=== PATIENT | female | born 1945 | race Caucasian/White ===

== ENCOUNTER → 2019-04-25 13:52 | Outpatient (BNVA) | payer MEDICARE, SELFPAY | PROVIDERS: Family Provider Family Medicine; PCP Family Medicine; Visit Provider Nurse Practitioner | DX: F33.2 Major depressive disorder, recurrent severe without psychotic features (principal) | CPT/HCPCS: 99213 ==

== ENCOUNTER 2019-08-09 05:38 | Emergency (ER) | payer MEDICARE, SELFPAY ==
[2019-08-09 05:50] VITALS: BP 185/83; PULSE 84; RESP 20; TEMP 35.8; O2SAT 98; BMI 28.3
--- NOTE | 2019-08-09 06:03 | CT_ITS ---
WS: [id number] CT abdomen pelvis w con* [id number] REASON FOR EXAM: abd pain IV CONTRAST ADMINISTERED: Omnipaque 350 300, 95 mL TOTAL EXAM DLP: 810.[address] scans at [facility] use at least one of these dose optimization techniques: automat ed exposure control; mA and/or kV adjustment per patient size (includes targeted exams where dose is matched to clinical indication); or iterative reconstruction. FINDINGS: Dilated fluid-filled cavity is seen in the uterus measures 3.17 x 3.47 x 2.93 cm. The uteru s itself is small in size. There is no adnexal masses seen. The distal colon sigmoid colon appear to be normal. There is no masses seen anorectal area. The bony pelvis was normal. The upper abdomen shows normal lower lung angela and mediastinum. The liver was normal no infiltrating changes. The gallbladder showed no stones or wall thickening. The pancreas head, body, tail were normal. The spleen was normal including the splenic arteries The stomach was normal. The adrenal glands were both normal. Both kidneys show normal excretory patterns no hydronephrosis or stones. The ureters were both normal . At the hepatic flexure of the diverticulosis no diverticulitis. The transverse colon was normal. The descending colon was within normal limits. The small bowel patterns were normal. The appendix was not inflamed. CT/CT abdomen pelvis w con* [id number] IMPRESSION: Fluid-filled mass in the uterus differential includes endometrial carcinoma. Isolated diverticulosis of the hepatic flexure
--- NOTE | 2019-08-09 06:03 | XR_ITS ---
WS: [id number] XR chest 1V portable [id number] REASON FOR EXAM: dyspnea/cough FINDINGS: Scoliosis convex to the right with degenerated changes. The heart is not enlarged. The lung angela are clear there is no pneumonia, pleural effusion, pulmonary edema, or pneumothorax. The hilum is and apices are normal. XR/XR chest 1V portable [id number] IMPRESSION: Scoliotic curve with degenerate changes throughout the thoracic spine convex to the right Negative chest for acute pathology.
[2019-08-09 06:16] VITALS: BP 178/72; PULSE 72; RESP 18; O2SAT 97
[2019-08-09] MEDS: ondansetron 2 mg/ML SDV 2 mL 4 MG IVP (06:17)
[2019-08-09] MEDS: sodium chloride 0.9% 1,000 ML 999 ML IV (06:17)
[2019-08-09 06:18] VITALS: RESP 18; O2SAT 98
[2019-08-09] MEDS: morphine 4 mg/mL SDV 1 mL IVP (06:18)
[2019-08-09 06:25] LABS: Basophils % 0.3 %; Eosinophils # 0.1 10^3/uL (0.0-0.8); Eosinophils % 1.5 %; Hematocrit 44.2 % (37.0-47.0); Hemoglobin 14.4 g/dL (11.5-15.3); Lymphocytes # 1.5 10^3/uL (0.8-4.8); Lymphocytes % 22.4 %; Mean Corpuscular HGB Conc 32.6 g/dL (30.0-36.0); Mean Corpuscular Hemoglobin 28.7 pg (28.0-34.0); Mean Corpuscular Volume 88.2 fL (81-99); Mean Platelet Volume 10.4 fL (7.4-10.4); Monocytes # 0.5 10^3/uL (0.2-0.9); Monocytes % 7.5 %; Neutrophils # 4.6 10^3/uL (1.8-7.7); Neutrophils % 68.2 %; Nucleated Red Blood Cells % 0 %; Platelet Count 252 10^3/cmm (130-400); Red Blood Count 5.01 10^6/uL (4.1-5.3); Red Cell Distribution Width 12.2 % (12.1-15.1); White Blood Count 6.8 10^3/uL (4.0-10.0)
[2019-08-09 06:30] LABS: Ketone (Acetest) Serum Negative (Negative)
[2019-08-09 06:39] LABS: Alanine Aminotransferase 15 U/L (0-33); Albumin Level 4.3 g/dL (3.5-5.2); Alkaline Phosphatase 65 IU/L (35-105); Anion Gap 18.4 (5-19); Aspartate Amino Transferase 33 U/L (0-32); Blood Urea Nitrogen 9 mg/dL (8-23); Carbon Dioxide 24 mmol/L (22-29); Chloride 101 mmol/L (98-107); Creatine Phosphokinase 91 U/L (26-192); Creatinine Clr Calc Pharmacy 61.5723; Globulin 2.7 g/dL (1.3-4.6); Glucose 147 mg/dL (65-115); Lipase 25 U/L (13-60); Osmolality Calculated 289 mOsm/kg (285-295); Potassium 3.4 mmol/L (3.5-5.1); Sodium 140 mmol/L (136-145); Total Bilirubin 0.6 mg/dL (0.15-1.2)
--- NOTE | 2019-08-09 06:45 | W.ED.ABDPA2 ---
HPI - Abdominal Pain General: Chief Complaint: Abdominal Pain Stated Complaint: NAUSEA; WEAKNESS; ALL OVER PAIN Time Seen by Provider: 08/09/19 05:48 History of Present Illness: HPI narrative: 73 yo female presents with abdominal pain states she began a couple weeks ago she had an ultrasound done at a local clinic a week ago that was evaluating her gallbladder that was normal she seemed to improve after that for about a week and the last 2 to 3 days had significant worsening of symptoms again. She states the pain migrated from the right upper quadrant to the abdomen. She has had nausea no vomiting or diarrhea with it. She has had a bit of a chronic cough that is nonproductive and is her baseline. She denies any dysuria urgency or frequency no history of significant difficulty with bowel or bladder no hematochezia melena hematemesis or coffee-ground emesis she does not associate any dysuria urgency frequency or hematuria with this episodes as either. MD elicited complaint: abdominal pain Pertinent past history: none Onset (ago): week(s) Pain Consistency: intermittent Location: Epigastric and RUQ Severity: severe Quality: cramping Migration to: epigastric Exacerbating factors: eating Relieving factors: rest Associated Symptoms: Reports anorexia, bloating, dyspepsia and excessive flatus; Denies change in stool character, chills, coffee ground emesis, fever(s), hematochezia, hematuria, hematemesis, fecal incontinence and poor appetite Review of Systems Const: Denies: fever(s), chills, body aches, change in appetite, fatigue or malaise ENMT: Denies: throat pain, ear or mastoid pain, nasal discharge or nasal congestion Card: Denies: chest pain, edema, dyspnea on exertion or orthopnea Resp: Denies: dyspnea, productive cough or non-productive cough GI: Reports: bloating and excessive flatus; Denies: hematemesis, coffee ground emesis, fecal incontinence, change in stool character or hematochezia : Denies: hematuria Skin/Breast: Denies: rash or pruritus PFS ED PFSH: Medical History (Updated 08/09/19 @ 08:45 by Marcos Castillo DO) Hypertension Surgical History (Updated 08/09/19 @ 07:46 by Marcos Castillo DO) History of mandibular surgery S/P tonsillectomy and adenoidectomy Social History Smoking and tobacco status: never smoked Physical Exam Const: COMMON NORMALS: no acute distress GENERAL APPEARANCE: cooperative and comfortable ORIENTATION/CONSCIOUSNESS: Yes awake, Yes oriented to person, Yes oriented to place and Yes oriented to time HENMT: COMMON NORMALS: normocephalic, atraumatic, hearing grossly normal bilaterally, external ears normal, EAC's normal, TM's normal bilaterally, Normal nasal mucous membranes and turbinates present, moist oral mucous membranes and oropharynx normal HEAD & SCALP: normocephalic and atraumatic NOSE: Normal nasal mucous membranes and turbinates present EXTERNAL EAR: Yes external ears normal EXTERNAL AUDITORY CANAL: EAC's normal TYMPANIC MEMBRANE: TM's normal bilaterally Eye: COMMON NORMALS: Equal, round and reactive pupils present, EOMs intact bilaterally, conjunctivae normal and no scleral icterus CONJUNCTIVA: Yes conjunctivae normal PUPIL: Yes Equal, round and reactive pupils present Neck/C-Spine: COMMON NORMALS: full ROM, no lymphadenopathy, supple and no JVD Lymph: LYMPHATIC: no lymphadenopathy noted and no lymphedema noted Resp: COMMON NORMALS: normal respiratory effort, No retractions, No use of accessory muscles and clear to auscultation bilaterally AUSCULTATION: clear to auscultation bilaterally Cardio: COMMON NORMALS: no JVD, regular rate, regular rhythm and No murmurs present (Cardio) RATE: regular rate RHYTHM: regular rhythm GI: COMMON NORMALS: Soft to palpation and No hepatosplenomegaly present AUSCULTATION: Yes normoactive bowel sounds PALPATION: Yes Soft to palpation, No Tenderness to palpation present (GI), No Guarding due to palpation present (GI) and Yes No hepatosplenomegaly present Extremity: COMMON NORMALS: normal to inspection, capillary refill normal, no clubbing, cyanosis or edema, no calf tenderness and no pedal edema Neuro: SENSORIUM/ORIENTATION: Yes oriented to person, Yes oriented to place and Yes oriented to time Skin: COMMON NORMALS: no rashes or lesions noted GENERAL SKIN EXAM: no rashes or lesions noted Course Vital Signs: Vital signs: Vital Signs Temperature 96.4 F L 08/09/19 05:50 Pulse Rate 70 08/09/19 09:05 Respiratory Rate 16 08/09/19 09:05 Blood Pressure 145/70 08/09/19 09:05 Pulse Oximetry 98 08/09/19 09:05 MDM - Abdominal Pain MDM Narrative: Medical decision making narrative: Patient has reflux addition to that she has a uterine mass. She had good relief with a GI cocktail. Will start on a PPI for hydrocodone Zofran for the abdominal pain she needs further work-up for the mass on the uterus we will set her up with Dr. Hopkins she expressed understanding and after we discussed it. Lab Data: Labs: Lab Results 08/09/19 08/09/19 08/09/19 Range/Units 05:59 05:59 05:59 WBC 6.8 (4.0-10.0) 10^3/ uL RBC 5.01 (4.1-5.3) 10^6/u L Hgb 14.4 (11.5-15.3) g/dL Hct 44.2 (37.0-47.0) % MCV 88.2 (81-99) fL MCH 28.7 (28.0-34.0) pg MCHC 32.6 (30.0-36.0) g/dL RDW 12.2 (12.1-15.1) % Plt Count 252 (130-400) 10^3/c mm MPV 10.4 (7.4-10.4) fL Neut % (Auto) 68.2 % Lymph % (Auto) 22.4 % [place] % (Auto) 7.5 % Eos % (Auto) 1.5 % Baso % (Auto) 0.3 % Neut # (Auto) 4.6 (1.8-7.7) 10^3/u L Lymph # (Auto) 1.5 (0.8-4.8) 10^3/u L [place] # (Auto) 0.5 (0.2-0.9) 10^3/u L Eos # (Auto) 0.1 (0.0-0.8) 10^3/u L Baso # (Auto) 0.0 (0.0-0.1) 10^3/u L Nucleated RBC % (a uto) 0 % Nucleated RBCs # 0.0 /100WBC Sodium 140 (136-145) mmol/L Potassium 3.4 L (3.5-5.1) mmol/L Chloride 101 (98-107) mmol/L Carbon Dioxide 24 (22-29) mmol/L Anion Gap 18.4 (5-19) BUN 9 (8-23) mg/dL Creatinine 0.7 (0.5-0.9) mg/dL Glucose 147 H (65-115) mg/dL Calculated Osmolal ity 289 (285-295) mOsm/k g Lactate (0.5-2.2) mmol/L Calcium 10.0 (8.5-10.5) mg/dL Total Bilirubin 0.6 (0.15-1.2) mg/dL AST 33 H (0-32) U/L ALT 15 (0-33) U/L Alkaline Phosphata se 65 (35-105) IU/L Creatine Kinase 91 (26-192) U/L Total Protein 7.0 (6.6-8.7) g/dL Albumin 4.3 (3.5-5.2) g/dL Globulin 2.7 (1.3-4.6) g/dL Lipase 25 (13-60) U/L Urine Color (Yellow) Urine Appearance (CLEAR) Urine pH (5-7) Ur Specific Gravit y (1.005-1.030) Urine Protein (Negative) Urine Glucose (UA) (Normal) Urine Ketones (Negative) Urine Blood (Negative) Urine Nitrate (Negative) Urine Bilirubin (NEGATIVE) Urine Urobilinogen (Negative) mg/dL Ur Leukocyte Charley ase (Negative) Urine RBC (0-2) /hpf Urine WBC (0-5) /hpf Ur Squamous Epith Cells (0-5) Urine Bacteria (NONE) Serum Ketones Negative (Negative) 08/09/19 08/09/19 Range/Units 06:39 06:40 WBC (4.0-10.0) 10^3/ uL RBC (4.1-5.3) 10^6/u L Hgb (11.5-15.3) g/dL Hct (37.0-47.0) % MCV (81-99) fL MCH (28.0-34.0) pg MCHC (30.0-36.0) g/dL RDW (12.1-15.1) % Plt Count (130-400) 10^3/c mm MPV (7.4-10.4) fL Neut % (Auto) % Lymph % (Auto) % [place] % (Auto) % Eos % (Auto) % Baso % (Auto) % Neut # (Auto) (1.8-7.7) 10^3/u L Lymph # (Auto) (0.8-4.8) 10^3/u L [place] # (Auto) (0.2-0.9) 10^3/u L Eos # (Auto) (0.0-0.8) 10^3/u L Baso # (Auto) (0.0-0.1) 10^3/u L Nucleated RBC % (a uto) % Nucleated RBCs # /100WBC Sodium (136-145) mmol/L Potassium (3.5-5.1) mmol/L Chloride (98-107) mmol/L Carbon Dioxide (22-29) mmol/L Anion Gap (5-19) BUN (8-23) mg/dL Creatinine (0.5-0.9) mg/dL Glucose (65-115) mg/dL Calculated Osmolal ity (285-295) mOsm/k g Lactate 1.9 (0.5-2.2) mmol/L Calcium (8.5-10.5) mg/dL Total Bilirubin (0.15-1.2) mg/dL AST (0-32) U/L ALT (0-33) U/L Alkaline Phosphata se (35-105) IU/L Creatine Kinase (26-192) U/L Total Protein (6.6-8.7) g/dL Albumin (3.5-5.2) g/dL Globulin (1.3-4.6) g/dL Lipase (13-60) U/L Urine Color Yellow (Yellow) Urine Appearance Clear (CLEAR) Urine pH 5 (5-7) Ur Specific Gravit y 1.015 (1.005-1.030) Urine Protein Neg (Negative) Urine Glucose (UA) Norm (Normal) Urine Ketones Negative (Negative) Urine Blood 2+ H (Negative) Urine Nitrate Negative (Negative) Urine Bilirubin Neg (NEGATIVE) Urine Urobilinogen Norm (Negative) mg/dL Ur Leukocyte Charley ase Trace H (Negative) Urine RBC None (0-2) /hpf Urine WBC 0-4 H (0-5) /hpf Ur Squamous Epith Cells 0-4 H (0-5) Urine Bacteria Trace (NONE) Serum Ketones (Negative) Discharge Plan Discharge Patient Disposition: Home, Self-Care Clinical Impression: Chronic GERD, Hypertension, Mass of uterus Condition: Stable Prescriptions: New hydrocodone-acetaminophen 5-325 mg tablet 1 tab PO Q6H PRN (Reason: pain) Qty: 20 RF: 0 Zofran 4 mg tablet 4 mg PO Q6H PRN (Reason: nausea and vomiting) Qty: 20 RF: 0 Protonix 40 mg tablet,delayed release (DR/EC) 40 mg PO QAM Qty: 30 RF: 0 No Action bisoprolol-hydrochlorothiazide 10-6.25 mg tablet 1 tab PO DAILY RF: 0 cetirizine [Zyrtec] 10 mg tablet 10 mg PO DAILY RF: 0 naproxen 375 mg tablet 375 mg PO BID PRNRF: 0 fluoxetine [Prozac] 20 mg capsule 20 mg PO DAILY Qty: 90 RF: 1 diazepam [Valium] 2 mg tablet 2 mg PO DAILY Qty: 30 RF: 5 ciprofloxacin HCl [Cipro] 500 mg tablet 500 mg PO BID Qty: 28 RF: 3 Discharge Orders: Discharge Order (Routine); Ordered 08/09/19 Ordered By: Marcos Castillo Referrals: Duncan Gonsalves MD [Primary Care Provider] - Discharge Diet: Advance as tolerated Discharge Activity: Increase activity as tolerated Activity Restrictions/Additional Instructions: This management will call for an appointment with a real estate paralegal. Discharge Date/Time: 08/09/19 09:06 Coding Level of Care Code ED Retail Experience Specialist for Chg Fwd Exam Comprehensive
[2019-08-09 06:49] LABS: Add Urine Microscopic? YES; Bilirubin Urine Neg (NEGATIVE); Blood Urine 2+ (Negative); Glucose Urine UA Norm (Normal); Ketones Urine Negative (Negative); Leukocyte Esterase Urine Trace (Negative); Nitrate Urine Negative (Negative); Protein Urine Neg (Negative); Specific Gravity, Urine 1.015 (1.005-1.030); Urine Appearance Clear (CLEAR); Urine Color Yellow (Yellow); Urobilinogen Urine Norm (Negative); pH Urine 5 (5-7)
[2019-08-09 06:54] LABS: Add Urine Culture? No; Bacteria Urine TRACE; Squamous Epithelial Cell Urine 0-4 (0-5); WBC Urine 0-4 /hpf (0-5)
[2019-08-09] MEDS: lidocaine 2% viscous 15 ML, aluminum-mag hydrox-simethicon 30 ML, sucralfate oral liq 1 GM PO (06:56)
[2019-08-09 07:00] LABS: Lactate (Lactic Acid level) 1.9 mmol/L (0.5-2.2)
[2019-08-09] MEDS: iohexol 300 mg/mL 100 mL Btl IV (07:47)
[2019-08-09 09:05] VITALS: BP 145/70; PULSE 70; RESP 16; O2SAT 98
--- NOTE | 2019-08-10 10:42 | DCPLANNER ---
production service manager had message to schedule a follow up appointment for patient with [facility]. production service manager called the clinic, spoke with Jaqueline, gave clinic patients information. production service manager was told that patients information would be printed and reviewed. Clinic will call field nurse case manager and patient with appointment information.
--- NOTE | 2019-08-11 08:33 | DCPLANNER ---
Patient has a follow up appointment scheduled for Thursday, August 31, 2019 at 3:[address] Barragan. Clinic will call patient with appointment information.
--- NOTE | 2019-09-02 14:48 | DCPLANNER ---
Patient did attend appointment scheduled for 08.31.19 with [facility].
== END 2019-08-09 09:06 | disposition home or self-care (01) ==
PROVIDERS: Emergency Provider Family Medicine; PCP Family Medicine
DX: K21.9 Gastro-esophageal reflux disease without esophagitis (principal); I10 Essential (primary) hypertension; N85.9 Noninflammatory disorder of uterus, unspecified
CPT/HCPCS: 12345; 36415; 71045; 74177; 80053; 81001; 82009; 82550; 83605; 83690; 85025; 87040; 96360; 96361; 96374; 96375; 99283; 99284; J2270; J2405; J7030; Q9967

== ENCOUNTER → 2019-09-14 13:02 | Outpatient (BNVA) | payer MEDICARE, SELFPAY | PROVIDERS: PCP Family Medicine; Visit Provider Obstetrics & Gynecology | DX: N85.9 Noninflammatory disorder of uterus, unspecified (principal) | CPT/HCPCS: 76830 ==

== ENCOUNTER → 2019-10-25 10:43 | Outpatient (BNVA) | payer MEDICARE, SELFPAY | PROVIDERS: PCP Family Medicine; Visit Provider Nurse Practitioner | DX: F33.0 Major depressive disorder, recurrent, mild (principal) | CPT/HCPCS: 99213 ==

== ENCOUNTER 2020-01-31 09:45 | Outpatient (CLI) | payer MEDICARE, SELFPAY ==
--- NOTE | 2020-01-31 09:59 | NM_ITS ---
WS: [id number] NUCLEAR MEDICINE HIDA SCAN WITH GALLBLADDER EJECTION FRACTION HISTORY: EPIGASTRIC PAIN COMPARISON: Gallbladder ultrasound 07/26/2019 TECHNIQUE: The patient was intravenously injected with 7.7 mCi of TC99m Mebrofenin. Immediate imaging over the right upper quadrant was followed by 5 minute image and additional images for a total of 60 minutes. Normal uptake of radiotracer throughout the liver. Activity identified in the gallbladder at 40 minutes and well distended by 60 minutes. Activity in the proximal small bowel was seen by 10 minutes. Good washout of the radiotracer from the liver by 60 minutes. The patient then drank 8 ounces of Ensure Plus. Ejection fraction at 60 minutes was 82%. Normal GB ej ection fraction is 35-75%. Post fatty meal symptoms: None. NM/NM hepatobiliary w phar* [id number] IMPRESSION: 1. Normal HIDA scan. 2. Normal gallbladder ejection fraction.
== END 2020-01-31 09:46 | disposition home or self-care (01) ==
PROVIDERS: PCP Family Medicine; Visit Provider Nurse Practitioner Family
DX: R10.13 Epigastric pain (principal)
CPT/HCPCS: 78227; A9537

== ENCOUNTER → 2020-04-17 08:02 | Outpatient (BNVA) | payer MEDICARE, SELFPAY | PROVIDERS: PCP Family Medicine; Visit Provider Nurse Practitioner | DX: F33.0 Major depressive disorder, recurrent, mild (principal) | CPT/HCPCS: 99214 ==

== ENCOUNTER → 2020-05-14 12:46 | Outpatient (BNVA) | payer MEDICARE, SELFPAY | PROVIDERS: PCP Family Medicine; Visit Provider Nurse Practitioner Family | DX: Z20.822 Contact with and (suspected) exposure to COVID-19 (principal) | CPT/HCPCS: 87635 ==

== ENCOUNTER → 2020-08-09 15:36 | Outpatient (BNVA) | payer MEDICARE, SELFPAY | PROVIDERS: PCP Family Medicine; Visit Provider Podiatrist Foot & Ankle Surgery | DX: M79.672 Pain in left foot (principal); M21.41 Flat foot [pes planus] (acquired), right foot; M21.42 Flat foot [pes planus] (acquired), left foot | CPT/HCPCS: 73630 ==

== ENCOUNTER 2020-09-13 16:17 | Outpatient (CLI) | payer MEDICARE, SELFPAY | END 2020-09-13 16:18 | disposition home or self-care (01) | LOC: SPT 16:18 | PROVIDERS: PCP Family Medicine; Visit Provider Podiatrist Foot & Ankle Surgery | DX: Z46.89 Encounter for fitting and adjustment of other specified devices (principal); M21.41 Flat foot [pes planus] (acquired), right foot; M21.42 Flat foot [pes planus] (acquired), left foot | CPT/HCPCS: L3030 ==

== ENCOUNTER → 2020-11-09 07:29 | Outpatient (BNVA) | payer MEDICARE, SELFPAY | PROVIDERS: PCP Family Medicine; Visit Provider Nurse Practitioner | DX: F33.0 Major depressive disorder, recurrent, mild (principal) | CPT/HCPCS: 99214 ==

== ENCOUNTER 2021-01-31 15:12 | Outpatient (CLI) | payer MEDICARE, SELFPAY ==
--- NOTE | 2021-01-31 15:18 | XR_ITS ---
WS: [id number] SCREENING DEXA SCAN [employer] CLINICAL INFORMATION: POST MENOPAUSAL COMPARISON: None. FINDINGS: The L1-L4 bone mineral density measures 1.259 g/cm2. This corresponds to a T score score of 0.7 and Z score of 2.3. Left femoral neck bone mineral density measures 0.953 g/cm2. This corresponds to a T score of -0.4 an d Z score of 1.1. Right femoral neck bone mineral density measures 0.903 g/cm2. This corresponds to a T score -0.8of an d Z score of 0.7. Mean femoral neck bone mineral density measures 0.928 g/cm2. This corresponds to a T score of -0.6 an d Z score of 0.9. XR/XR DEXA axial skeleton* [id number] IMPRESSION: Normal bone mineralization. Patient's FRAX calculated 10 year probability for major osteoporotic fracture i s 16.7 % and osteoporotic hip fracture is 2.8%.
== END 2021-01-31 15:13 | disposition home or self-care (01) ==
PROVIDERS: PCP Family Medicine; Visit Provider Family Medicine
DX: Z78.0 Asymptomatic menopausal state (principal)
CPT/HCPCS: 77080

== ENCOUNTER → 2021-02-21 13:46 | Outpatient (BNVA) | payer MEDICARE, SELFPAY | PROVIDERS: PCP Family Medicine; Visit Provider Nurse Practitioner Family | DX: Z20.822 Contact with and (suspected) exposure to COVID-19 (principal) | CPT/HCPCS: 87635 ==

== ENCOUNTER → 2021-05-03 07:31 | Outpatient (BNVA) | payer MEDICARE, SELFPAY | PROVIDERS: PCP Family Medicine; Visit Provider Nurse Practitioner | DX: F33.0 Major depressive disorder, recurrent, mild (principal) | CPT/HCPCS: 99214 ==

== ENCOUNTER 2021-07-25 07:46 | Emergency (ER) | payer MEDICARE, SELFPAY ==
[2021-07-25 07:52] VITALS: BP 111/69; PULSE 66; RESP 16; TEMP 36.6; O2SAT 98; BMI 26.4
--- NOTE | 2021-07-25 07:54 | ECG_ITS ---
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 Measurements Intervals [place] Rate: 56 P: 22 OK: 169 QRS: 1 QRSD: 85 T: -5 QT: 413 QTc: 399 Interpretive Statements SINUS BRADYCARDIA NONSPECIFIC ST & T-WAVE ABNORMALITY No previous ECG available for comparison Electronically Signed On 07-25-2021 9:34:10 CDT by Deon Whiting M.D. [id number]
--- NOTE | 2021-07-25 08:16 | XRR_ITS ---
PROCEDURE INFORMATION: Exam: XR Chest Exam date and time: 07/25/2021 8:25 AM Age: 75 years old Clinical indication: Cough and dyspnea; Patient HX: Unable to sleep, cp, right side pain; Additional info: Dyspnea/cough TECHNIQUE: Imaging protocol: XR of the chest. Views: 1 view. COMPARISON: CR XR chest 1V portable [id number] 08/09/2019 6:23 AM FINDINGS: Lungs: Unremarkable. No consolidation. Pleural spaces: Unremarkable. No pleural effusion. No pneumothorax. Heart/Mediastinum: Unremarkable. No cardiomegaly. Bones/joints: There is mild thoracic scoliosis convex to the right. XR/XR chest 1V portable [id number] IMPRESSION: No acute abnormality.
--- NOTE | 2021-07-25 08:21 | ED_ITS ---
HPI - Chest Pain General: Chief Complaint: Chest Pain Stated Complaint: unable to sleep, cp, right side pain Time Seen by Provider: 07/25/21 07:50 Source: patient Mode of arrival: ambulatory Limitations: no limitations History of Present Illness: 75-year-old female presents emergency room with complaint of intermittent hot flashes and chest discomfort. In discussing with her this is actually been going on for 2 years. She has seen her primary care physician for it. She states she wakes up with hot flashes and sweats primarily at night it extends across her arms. She has occasionally noticed some flashes of discomfort across her chest but it does not persist, she will briefly have a sensation that she cannot take a deep breath will resolve spontaneously. She states usually immediately after these episodes that she will be very fatigued for period of time. She has not noted that it has been brought on by exertion or relieved by rest these flat at night flashes only occur at night while at rest. She previously did have a stress test sometime in the past she cannot member how long ago was told it was normal. She is not diabetic she does not smoke. She does feel like the symptoms have increased within the last 4 days. MD complaint: chest discomfort Onset (ago): year(s) (2) Timing of current episode: episodic Prior episodes: Yes Onset: during rest Pain location: other (Upper chest across the shoulders) Pain radiation: right arm and left arm Severity: mild Quality: heaviness and dull Relieving factors: nothing Exacerbating factors: nothing Associated symptoms: Reports diaphoresis; Deny abdominal pain, dyspnea, fever(s), leg edema, nausea, palpitations, sense of impending doom, syncope or vomiting Review of Systems Const: Reports: fatigue, malaise and diaphoresis; Denies: fever(s), chills or body aches ENMT: Denies: throat pain, ear or mastoid pain, nasal discharge or nasal congestion Card: Reports: chest pain; Denies: palpitations or syncope Resp: Denies: dyspnea GI: Denies: abdominal pain, nausea or vomiting : Denies: flank pain, difficulty voiding, dysuria, urinary frequency or urinary urgency Skin/Breast: Denies: rash or pruritus PFS ED PFSH: Medical History Depression Diverticulosis Gastroesophageal reflux disease Hyperlipemia Hypertension Major depressive disorder, recurrent, mild Psychiatric care Recurrent urinary tract infection Uterine fibroid Surgical History History of colonoscopy 2004 History of dilation and curettage History of esophagogastroduodenoscopy (EGD) 2004 History of mandibular surgery TMJ surgery S/P tonsillectomy and adenoidectomy Family History Grandfather Colon cancer maternal Mother , Age 62 from brain cancer. Hypercholesteremia Hypertension Father , Age 39 due to blood clot after heart valve replacement No problems noted. Social History Smoking and tobacco status: never smoked Alcohol intake: current Alcohol intake frequency: holidays/special occasions only Physical Exam Const: GENERAL APPEARANCE: cooperative and comfortable ORIENTATION/CONSCIOUSNESS: Yes awake, Yes oriented to person, Yes oriented to place and Yes oriented to time HENMT: COMMON NORMALS: normocephalic, atraumatic and hearing grossly normal bilaterally HEAD & SCALP: normocephalic and atraumatic Neck/C-Spine: COMMON NORMALS: no JVD Resp: COMMON NORMALS: normal respiratory effort, No retractions, No use of accessory muscles and clear to auscultation bilaterally AUSCULTATION: clear to auscultation bilaterally Cardio: COMMON NORMALS: no JVD, regular rate, regular rhythm and No murmurs present (Cardio) RATE: regular rate RHYTHM: regular rhythm GI: COMMON NORMALS: Soft to palpation and No hepatosplenomegaly present AUSCULTATION: Yes normoactive bowel sounds PALPATION: Yes Soft to palpation, No Tenderness to palpation present (GI), No Guarding due to palpation present (G I) and Yes No hepatosplenomegaly present Extremity: COMMON NORMALS: normal to inspection, capillary refill normal, no clubbing, cyanosis or edema, no calf tenderness and no pedal edema Neuro: SENSORIUM/ORIENTATION: Yes oriented to person, Yes oriented to place and Yes oriented to time Skin: COMMON NORMALS: no rashes or lesions noted GENERAL SKIN EXAM: no rashes or lesions noted Course Vital Signs: Vital signs: Vital Signs Temperature 98 F 07/25/21 07:52 Pulse Rate 68 07/25/21 10:31 Respiratory Rate 16 07/25/21 10:31 Blood Pressure 130/83 07/25/21 10:31 Pulse Oximetry 98 07/25/21 10:31 MDM - Chest Pain Medical Decision Making Labs imaging and EKG reviewed no acute findings noted patient has had this for some time. Patient would like to be discharged home. We will go and discharge her home and like to have her take baby aspirin daily. If she has any recurrence of symptoms return to the emergency room. We will set her up for outpatient Lexiscan sestamibi stress testing. Lab Data : 07/25/21 08:20 07/25/21 08:20 Radiology Impressions Chest X-Ray 07/25/21 08:16 IMPRESSION: No acute abnormality. Laboratory Results WBC 6.5 10^3/uL (4.0-10.0) 07/25/21 08:20 RBC 4.70 10^6/uL (4.1-5.3) 07/25/21 08:20 Hgb 13.6 g/dL (11.5-15.3) 07/25/21 08:20 Hct 40.7 % (37.0-47.0) 07/25/21 08:20 MCV 86.6 fl (81-99) 07/25/21 08:20 MCH 28.9 pg (28.0-34.0) 07/25/21 08:20 MCHC 33.4 g/dL (30.0-36.0) 07/25/21 08:20 RDW 12.6 % (12.1-15.1) 07/25/21 08:20 Plt Count 224 10^3/cmm (130-400) 07/25/21 08:20 MPV 10.0 fL (7.4-10.4) 07/25/21 08:20 Neut % (Auto) 68.6 % 07/25/21 08:20 Lymph % (Auto) 21.5 % 07/25/21 08:20 [place] % (Auto) 7.2 % 07/25/21 08:20 Eos % (Auto) 2.0 % 07/25/21 08:20 Baso % (Auto) 0.5 % 07/25/21 08:20 Neut # (Auto) 4.46 10^3/uL (1.8-7.7) 07/25/21 08:20 Lymph # (Auto) 1.4 10^3/uL (0.8-4.8) 07/25/21 08:20 [place] # (Auto) 0.5 10^3/uL (0.2-0.9) 07/25/21 08:20 Eos # (Auto) 0.1 10^3/uL (0.0-0.8) 07/25/21 08:20 Baso # (Auto) 0.0 10^3/uL (0.0-0.1) 07/25/21 08:20 Nucleated RBC % (auto) 0 % 07/25/21 08:20 Nucleated RBCs # 0.0 /100WBC 07/25/21 08:20 Sodium 140 mmol/L (136-145) 07/25/21 08:20 Potassium 3.8 mmol/L (3.5-5.1) 07/25/21 08:20 Chloride 104 mmol/L (98-107) 07/25/21 08:20 Carbon Dioxide 25 mmol/L (22-29) 07/25/21 08:20 Anion Gap 14.8 (5-19) 07/25/21 08:20 BUN 14 mg/dL (8-23) 07/25/21 08:20 Creatinine 0.8 mg/dL (0.5-0.9) 07/25/21 08:20 GFR Calculation Not Reportable 07/25/21 08:20 Glucose 113 mg/dL (65-115) 07/25/21 08:20 Calculated Osmolality 291 mOsm/kg (285-295) 07/25/21 08:20 Calcium 9.8 mg/dL (8.5-10.5) 07/25/21 08:20 Total Bilirubin 0.4 mg/dL (0.15-1.2) 07/25/21 08:20 AST 30 U/L (0-32) 07/25/21 08:20 ALT 22 U/L (0-33) 07/25/21 08:20 Alkaline Phosphatase 66 IU/L (35-105) 07/25/21 08:20 Troponin T Gen 5 ng/L 6 ng/L (0-10) 07/25/21 08:20 Total Protein 7.1 g/dL (6.6-8.7) 07/25/21 08:20 Albumin 4.2 g/dL (3.5-5.2) 07/25/21 08:20 Globulin 2.9 g/dL (1.3-4.6) 07/25/21 08:20 Urine Color Yellow (Yellow) 07/25/21 09:40 Urine Appearance Clear (CLEAR) 07/25/21 09:40 Urine pH 5 (5-7) 07/25/21 09:40 Ur Specific [place] 1.020 (1.005-1.030) 07/25/21 09:40 Urine Protein Neg (Negative) 07/25/21 09:40 Urine Glucose (UA) Norm (Normal) 07/25/21 09:40 Urine Ketones Negative (Negative) 07/25/21 09:40 Urine Blood Neg (Negative) 07/25/21 09:40 Urine Nitrate Negative (Negative) 07/25/21 09:40 Urine Bilirubin Neg (Negative) 07/25/21 09:40 Urine Urobilinogen Norm mg/dL (Negative) 07/25/21 09:40 Ur Leukocyte Esterase Negative (Negative) 07/25/21 09:40 Discharge Plan Discharge Patient Disposition: Home Clinical Impression: Atypical chest pain Condition: Stable Prescriptions: New aspirin 81 mg tablet,delayed release (DR/EC) 81 mg PO DAILY Qty: 30 0RF No Action (DME) Custom Molded Orthotics See Rx Instructions .Route .MEDSUPPLY Qty: 1 0RF Rx Instructions: As directed naproxen 375 mg tablet 375 mg PO BID PRN (Reason: Pain) 0RF ondansetron HCl 4 mg tablet 4 mg PO TID PRN (Reason: Nausea And Vomiting) 0RF bisoprolol-hydrochlorothiazide 5-6.25 mg tablet 1 tab PO QAM 0RF Gracie Allergy 180 mg Tablet 180 mg PO DAILY 0RF Tylenol Ex Str Rapid Release 500 mg Tablet 500 mg PO Q6H PRN (Reason: Pain) 0RF Nitrostat 0.4 mg Tablet, Sublingual 0.4 mg SUBLINGUAL Q5M PRN (Reason: Chest Pain) 0RF Rx Instructions: do not exceed 3 doses per episode azelastine 137 mcg (0.1 %) aerosol,spray 2 spray INTRANASAL BEDTIME 0RF albuterol sulfate 90 mcg/actuation HFA aerosol inhaler 2 puff INHALATION Q4H PRN (Reason: Shortness Of Breath) 0RF Vitamin D3 50 mcg (2,000 unit) Capsule 50 mcg PO .TWICE A WEEK 0RF Valium 2 mg tablet 2 mg PO BEDTIME 0RF Prozac 20 mg capsule 20 mg PO DAILY@18 0RF Discharge Orders: Discharge ED (Routine); Ordered 07/25/21 Ordered By: Marcos Castillo Referrals: Duncan Gonsalves MD [Primary Care Provider] - Discharge Diet: Usual diet Discharge Activity: Resume usual activity Patient Instructions: Opioid Safety Activity Restrictions/Additional Instructions: Case management make arrangements for you to have an outpatient Lexiscan sestamibi stress test. Coding Level of Care Code ED [employer] Super[employer] for Alberto Fwd Exam Comprehensive
[2021-07-25 08:28] LABS: Basophils % 0.5 %; Eosinophils # 0.1 10^3/uL (0.0-0.8); Hematocrit 40.7 % (37.0-47.0); Hemoglobin 13.6 g/dL (11.5-15.3); Lymphocytes # 1.4 10^3/uL (0.8-4.8); Lymphocytes % 21.5 %; Mean Corpuscular HGB Conc 33.4 g/dL (30.0-36.0); Mean Corpuscular Hemoglobin 28.9 pg (28.0-34.0); Mean Corpuscular Volume 86.6 fl (81-99); Monocytes # 0.5 10^3/uL (0.2-0.9); Monocytes % 7.2 %; Neutrophils # 4.46 10^3/uL (1.8-7.7); Neutrophils % 68.6 %; Nucleated Red Blood Cells % 0 %; Platelet Count 224 10^3/cmm (130-400); Red Cell Distribution Width 12.6 % (12.1-15.1); White Blood Count 6.5 10^3/uL (4.0-10.0)
[2021-07-25 08:50] LABS: Alanine Aminotransferase 22 U/L (0-33); Albumin Level 4.2 g/dL (3.5-5.2); Alkaline Phosphatase 66 IU/L (35-105); Anion Gap 14.8 (5-19); Aspartate Amino Transferase 30 U/L (0-32); Blood Urea Nitrogen 14 mg/dL (8-23); Calcium 9.8 mg/dL (8.5-10.5); Carbon Dioxide 25 mmol/L (22-29); Chloride 104 mmol/L (98-107); Globulin 2.9 g/dL (1.3-4.6); Glucose 113 mg/dL (65-115); Osmolality Calculated 291 mOsm/kg (285-295); Potassium 3.8 mmol/L (3.5-5.1); Sodium 140 mmol/L (136-145); Total Bilirubin 0.4 mg/dL (0.15-1.2); Total Protein 7.1 g/dL (6.6-8.7)
--- NOTE | 2021-07-25 09:13 | PC.PHAR ---
pt states she takes care of her own medications-pt states she is no longer taking montelukast 10mg daily ext med history shows last filled 07/18/21 90d/s
[2021-07-25 09:50] LABS: Troponin T (5th) Once 6 ng/L (0-10)
[2021-07-25 09:57] LABS: Add Urine Microscopic? NO; Charge for UA Resulting for Rev
[2021-07-25 10:06] LABS: Bilirubin Urine Neg (Negative); Blood Urine Neg (Negative); Glucose Urine UA Norm (Normal); Ketones Urine Negative (Negative); Leukocyte Esterase Urine Negative (Negative); Nitrate Urine Negative (Negative); Protein Urine Neg (Negative); Urine Appearance Clear (CLEAR); Urine Color Yellow (Yellow); Urobilinogen Urine Norm (Negative); pH Urine 5 (5-7)
[2021-07-25 10:31] VITALS: BP 130/83; PULSE 68; RESP 16; O2SAT 98
--- NOTE | 2021-07-25 17:00 | DCPLANNER ---
Addendum entered by Leelee Pena 11/08/21 14:49: Patients appointment for a stress test was cancelled Original Note: clinical outcomes manager had message to schedule an outpatient stress test for patient. clinical outcomes manager faxed signed order to centralized scheduling, who will call patient with appointment information.
== END 2021-07-25 10:33 | disposition home or self-care (01) ==
PROVIDERS: Emergency Provider Family Medicine; PCP Family Medicine
DX: R07.89 Other chest pain (principal); R53.83 Other fatigue; R53.81 Other malaise
CPT/HCPCS: 71045; 80053; 81003; 84484; 85025; 93005; 99284

== ENCOUNTER → 2021-08-06 14:11 | Outpatient (BNVA) | payer MEDICARE, SELFPAY | PROVIDERS: PCP Family Medicine; Visit Provider Family Medicine | DX: I10 Essential (primary) hypertension (principal); R23.2 Flushing; R10.9 Unspecified abdominal pain | CPT/HCPCS: 80053; 84443; 85025; 85651; 86140 ==

== ENCOUNTER 2021-09-12 06:04 | Outpatient (CLI) | payer MEDICARE, SELFPAY ==
--- NOTE | 2021-09-12 07:09 | CT_ITS ---
WS: [id number] CT ABDOMEN PELVIS TECHNIQUE: Contrast-enhanced CT of the abdomen and pelvis with coronal and sagittal reformatted image s. CLINICAL INFORMATION: ABDOMINAL PAIN COMPARISON: Ultrasound September 14, [address] 6 16,020 DLP: 945.[address] scans at [facility] use at least one of these dose optimization techniques: automated e xposure control; mA and/or kV adjustment per patient size (includes targeted exams where dose is matc hed to clinical indication); or iterative reconstruction. FINDINGS: Again seen is the heterogeneous uterine mass likely representing fibroid on the prior ultrasound. Tod ay this measures approximately 2.6 x 2.8 x 2.8 cm essentially unchanged from previous. Associated pun ctate calcifications. Lung bases are well aerated. Mild diffuse fatty infiltration the liver. Normal GE junction. Normal sp kasey. Normal portal vein and splenic vein. Normal gallbladder. Normal pancreatic parenchymal enhance ment. Adrenal glands are normal. Normal renal parenchymal enhancement. No hydronephrosis. Mild bilate ral renal cortical atrophy. Normal caliber abdominal aorta. Aortic calcification. Lobulated aneurysma l dilatation infrarenal abdominal aorta measuring 2.1 x 2.2 cm with focal dissection or atheromatous ulceration unchanged from previous. Celiac and SMA are patent. Sigmoid diverticulosis. No evidence of acute diverticulitis. No evidence o f high-grade small or large bowel destruction. Tiny fat-containing umbilical hernia. Mild lumbar curv e convex LEFT. CT/CT abdomen pelvis w con* [id number] IMPRESSION: 1. Again seen is the heterogeneous low-attenuation mass involving the uterine fundus with calcifications. This is unchanged likely representing fibroid as de scribed on the prior ultrasound in 2019. This is essentially unchanged in size described above. 2. Sigmoid diverticulosis. No evidence of acute diverticulitis. 3. No adenopathy in the abdomen or pelvis. 4. Small infrarenal abdominal aortic aneurysm measuring 2.1 x 2.2 cm with foca l ulceration or short segment dissection. This is unchanged in appearance since August 09, 2019. 5. No other significant changes compared to previous.
[2021-09-12] MEDS: barium sulfate 450 mL Oral Susp PO (08:24)
[2021-09-12] MEDS: iohexol 350 mg/mL 100 mL Btl IV (08:24)
== END 2021-09-12 06:05 | disposition home or self-care (01) ==
PROVIDERS: PCP Family Medicine; Visit Provider Family Medicine
DX: N85.8 Other specified noninflammatory disorders of uterus (principal); K57.30 Diverticulosis of large intestine without perforation or abscess without bleeding; I71.4 Abdominal aortic aneurysm, without rupture
CPT/HCPCS: 74177

== ENCOUNTER → 2022-08-22 10:11 | Outpatient (BNVA) | payer MEDICARE, SELFPAY | PROVIDERS: PCP Family Medicine; Visit Provider Family Medicine | DX: Z00.00 Encounter for general adult medical examination without abnormal findings (principal); E78.5 Hyperlipidemia, unspecified; F32.9 Major depressive disorder, single episode, unspecified; I10 Essential (primary) hypertension | CPT/HCPCS: 80053; 80061; 85025 ==

== ENCOUNTER 2022-11-07 13:30 | Outpatient (CLI) | payer MEDICARE, SELFPAY ==
[2022-11-07] MEDS: iohexol 350 mg/mL 500 mL Btl (per mL) PO (14:10)
--- NOTE | 2022-11-07 14:30 | CTR_ITS ---
PROCEDURE INFORMATION: Exam: CT Abdomen And Pelvis With Contrast Exam date and time: 11/07/2022 3:19 PM Age: 77 years old Clinical indication: Condition or disease; Other: Fu on aaa and uterine mass; Patient HX: Uterine leiomyoma, abdominal aortic aneurysm f/u TECHNIQUE: Imaging protocol: Computed tomography of the abdomen and pelvis with contrast. Radiation optimization: All CT scans at this facility use at least one of these dose optimization techniques: automated exposure control; mA and/or kV adjustment per patient size (includes targeted exams where dose is matched to clinical indication); or iterative reconstruction. Contrast material: OMNI 350; Contrast volume: 100 ml; Contrast route: INTRAVENOUS (IV); REPORTING DATA: Count of CT and Cardiac NM exams in prior 12 months: This patient has received 0 known CTs and 0 known cardiac nuclear medicine studies in the 12 months prior to the current study. COMPARISON: CT abdomen pelvis w con* [id number] 09/12/2021 8:17 AM RADIATION DOSE METRICS: Total DLP (mGy-cm): 366.52 FINDINGS: Liver: Hepatic steatosis. Gallbladder and bile ducts: Normal. No calcified stones. No ductal dilation. Pancreas: Normal. No ductal dilation. Spleen: Normal. No splenomegaly. Adrenal glands: Normal. No mass. Kidneys and ureters: Normal. No hydronephrosis. Stomach and bowel: Diverticulosis without diverticulitis. Appendix: No evidence of appendicitis. Intraperitoneal space: Unremarkable. No free air. No significant fluid collection. Vasculature: Again seen is a 2.1 x 2.2 cm small infrarenal abdominal aortic aneurysm with a small ulceration, similar to prior exam. Lymph nodes: Unremarkable. No enlarged lymph nodes. Urinary bladder: Unremarkable as visualized. Reproductive: 3.5 cm uterine fundal cystic lesion similar dating back to 08/09/2019, suggestive of a chronic fibroid with cystic degeneration. Bones/joints: Unremarkable. No acute fracture. Soft tissues: Unremarkable. CT/CT abdomen pelvis w con* [id number] IMPRESSION: 1. Again seen is a 2.1 x 2.2 cm small infrarenal abdominal aortic aneurysm with a small ulceration, similar to prior exam. 2. Hepatic steatosis. 3. 3.5 cm uterine fundal cystic lesion similar dating back to 08/09/2019, suggestive of a chronic fibroid with cystic degeneration. 4. Diverticulosis without diverticulitis.
[2022-11-07 15:16] LABS: Blood Urea Nitrogen 13 mg/dL (8-23)
[2022-11-07] MEDS: iohexol 350 mg/mL 500 mL Btl (per mL) IV (15:20)
== END 2022-11-07 13:31 | disposition home or self-care (01) ==
PROVIDERS: PCP Family Medicine; Visit Provider Family Medicine
DX: D25.9 Leiomyoma of uterus, unspecified (principal); I71.43 Infrarenal abdominal aortic aneurysm, without rupture; K76.0 Fatty (change of) liver, not elsewhere classified; K57.90 Diverticulosis of intestine, part unspecified, without perforation or abscess without bleeding
CPT/HCPCS: 74177; 82565; 84520; Q9967

== ENCOUNTER 2023-03-13 02:28 | Emergency (ER) | payer MEDICARE, SELFPAY ==
[2023-03-13 02:33] VITALS: BP 126/74; PULSE 59; RESP 16; TEMP 35.5; O2SAT 97
--- NOTE | 2023-03-13 02:34 | CTR_ITS ---
PROCEDURE INFORMATION: Exam: CT Abdomen And Pelvis With Contrast Exam date and time: 03/13/2023 3:41 AM Age: 77 years old Clinical indication: Abdominal pain; Generalized; Additional info: Abd pain TECHNIQUE: Imaging protocol: Computed tomography of the abdomen and pelvis with contrast. Radiation optimization: All CT scans at this facility use at least one of these dose optimization techniques: automated exposure control; mA and/or kV adjustment per patient size (includes targeted exams where dose is matched to clinical indication); or iterative reconstruction. Contrast material: OMNI 350; Contrast volume: 80 ml; Contrast route: INTRAVENOUS (IV); COMPARISON: CT abdomen pelvis w con* [id number] 11/07/2022 3:19 PM RADIATION DOSE METRICS: Total DLP (mGy-cm): 534.38 FINDINGS: Liver: Normal. No mass. Gallbladder and bile ducts: Normal. No calcified stones. No ductal dilation. Pancreas: Normal. No ductal dilation. Spleen: Normal. No splenomegaly. Adrenal glands: Normal. No mass. Kidneys and ureters: Normal. No hydronephrosis. Stomach and bowel: Unremarkable. No obstruction. No mucosal thickening. Appendix: No evidence of appendicitis. Intraperitoneal space: Unremarkable. No free air. No significant fluid collection. Vasculature: Unremarkable. No abdominal aortic aneurysm. Lymph nodes: Unremarkable. No enlarged lymph nodes. Urinary bladder: Unremarkable as visualized. Reproductive: There is a heterogeneous myometrial mass seen within the uterine fundus measures approximately 3.3 x 3.5 cm containing some dystrophic calcifications, findings compatible with a uterine fibroid. It appears unchanged from 11/07/2022. Bones/joints: There is a diffuse loss of disc height seen within the thoracolumbar spine compatible with degenerative disc disease. Soft tissues: There is a small umbilical hernia present containing fat. CT/CT abdomen pelvis w con* [id number] IMPRESSION: 1. Stable uterine fibroid measuring up to 3.5 cm. 2. Small umbilical hernia containing fat 3. Otherwise stable CT appearance of the abdomen pelvis compared with 11/07/2022.
--- NOTE | 2023-03-13 02:35 | ECG_ITS ---
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 Measurements Intervals [place] Rate: 59 P: 41 HI: 179 QRS: 28 QRSD: 88 T: 23 QT: 433 QTc: 432 Interpretive Statements SINUS BRADYCARDIA WITH SINUS ARRHYTHMIA NONSPECIFIC ST & T-WAVE ABNORMALITY Compared to ECG 07/25/2021 08:07:04 No significant changes Electronically Signed On 03-13-2023 12:17:52 CAR OILER by Freddie Fuentes M.D. [email or web address]
--- NOTE | 2023-03-13 02:37 | ED_ITS ---
HPI - Abdominal Pain 2 General: Chief Complaint: Abdominal Pain Stated Complaint: Abd Pain Time Seen by Provider: 03/13/23 02:29 Source: patient and EMS Mode of arrival: EMS Limitations: no limitations History of Present Illness: 77-year-old female states that she has b een having nausea vomiting diarrhea since this evening. She states that she started having diffuse abdominal cramping since she has been vomiting. States pain is epigastric in nature denies any radiation she denies any fever she denies any worsening improving factors. Associated Symptoms: Reports diarrhea, nausea and vomiting; Denies chills, dysuria and fever(s) Review of Systems 2 Const: Denies: fever(s), chills, body aches or change in appetite ENMT: Denies: throat pain or dental pain Card: Denies: chest pain Resp: Denies: dyspnea GI: Reports: abdominal pain, nausea, vomiting and diarrhea : Denies: dysuria Musc: Denies: neck pain or back pain Skin/Breast: Denies: rash Neuro: Denies: headache(s) PFSH ED 2 PFSH: Medical History Psychiatric care Major depressive disorder, recurrent, mild Uterine fibroid Recurrent urinary tract infection Hyperlipemia Diverticulosis Gastroesophageal reflux disease Depression Hypertension Surgical History History of colonoscopy 2004 History of esophagogastroduodenoscopy (EGD) 2004 History of dilation and curettage History of mandibular surgery TMJ surgery S/P tonsillectomy and adenoidectomy Family History Grandfather Colon cancer maternal Mother , Age 62 from brain cancer. Hypercholesteremia Hypertension Father , Age 39 due to blood clot after heart valve replacement No problems noted. Social History Smoking and tobacco/nicotine status: never used tobacco/nicotine Alcohol intake: current Alcohol intake frequency: holidays/special occasions only Substance/Drug Use: never Physical Exam 2 Const: COMMON NORMALS: no acute distress, patient oriented x3 and healthy appearing HENMT: COMMON NORMALS: normocephalic and atraumatic HEAD & SCALP: n ormocephalic and atraumatic Eye: COMMON NORMALS: Equal, round and reactive pupils present and EOMs intact bilaterally PUPIL: Yes Equal, round and reactive pupils present Neck/C-Spine: COMMON NORMALS: full ROM and supple Chest: COMMONS NORMALS: normal inspection of the chest Resp: COMMON NORMALS: normal respiratory effort, No retractions, No use of accessory muscles and clear to auscultation bilaterally AUSCULTATION: clear to auscultation bilaterally Cardio: COMMON NORMALS: regular rate, regular rhythm and No murmurs present (Cardio) RATE: regular rate RHYTHM: regular rhythm GI: COMMON NORMALS: Normal to inspection, nondistended, normoactive bowel sounds present, Soft to palpation, non-tender and no masses PALPATION: Yes Soft to palpation Extremity: COMMON NORMALS: normal to inspection and full ROM Neuro: COMMON NORMALS: patient oriented x3, moves all extremities and no focal motor deficits Psych: COMMON NORMALS: mental status grossly normal, Normal thought process present and cooperative THOUGHT PROCESS: Normal thought process present Skin: COMMON NORMALS: no rashes or lesions noted and no wounds GENERAL SKIN EXAM: no rashes or lesions noted Course 2 Vital Signs: Vital signs: Vital Signs Temperature 95.9 F L 03/13/23 02:33 Pulse Rate 59 L 03/13/23 02:33 Respiratory Rate 16 03/13/23 02:33 Blood Pressure 126/74 03/13/23 02:33 Pulse Oximetry 97 03/13/23 02:33 MDM - Abdominal Pain Medical Decision Making Patient presents with abdominal pain along with vomiting. She feels much improved here after IV fluids and Zofran blood work along with CT scan are normal she is stable for discharge she is follow-up with PCP and return if worsening. Medical Records I reviewed the patient's medical records. Lab Data I reviewed the patient's lab results. 03/13/23 02:51 03/13/23 02:51 Labs/Radiology: Radiology Impressions Abdomen/Pelvis CT 03/13/23 02:34 IMPRESSION: 1. Stable uterine fibroid measuring up to 3.5 cm. 2. Small umbilical hernia containing fat 3. Otherwise stable CT appearance of the abdomen pelvis compared with 11/07/2022. Laboratory Results WBC 11.46 10^3/uL (3.29-11.43) H 03/13/23 02:51 RBC 4.77 10^6/uL (3.85-5.65) 03/13/23 02:51 Hgb 14.10 g/dL (11.27-16.99) 03/13/23 02:51 Hct 42.9 % (36-47) 03/13/23 02:51 MCV 89.9 fl (85-98) 03/13/23 02:51 MCH 29.6 pg (27-33) 03/13/23 02:51 MCHC 32.9 g/dL (30-55) 03/13/23 02:51 RDW 12.7 % (12.1-15.1) 03/13/23 02:51 Plt Count 233 10^3/cmm (157-399) 03/13/23 02:51 MPV 9.8 fL (7.4-10.4) 03/13/23 02:51 Neut % (Auto) 85.2 % 03/13/23 02:51 Lymph % (Auto) 8.1 % 03/13/23 02:51 [place] % (Auto) 4.5 % 03/13/23 02:51 Eos % (Auto) 1.6 % 03/13/23 02:51 Baso % (Auto) 0.2 % 03/13/23 02:51 Neut # (Auto) 9.77 10^3/uL (1.8-7.7) H 03/13/23 02:51 Lymph # (Auto) 0.9 10^3/uL (0.8-4.8) 03/13/23 02:51 [place] # (Auto) 0.5 10^3/uL (0.2-0.9) 03/13/23 02:51 Eos # (Auto) 0.2 10^3/uL (0.0-0.8) 03/13/23 02:51 Baso # (Auto) 0.0 10^3/uL (0.0-0.1) 03/13/23 02:51 Nucleated RBC % (auto) 0 % 03/13/23 02:51 Nucleated RBCs # 0.0 /100WBC 03/13/23 02:51 Sodium 138 mmol/L (136-145) 03/13/23 02:51 Potassium 4.1 mmol/L (3.5-5.1) 03/13/23 02:51 Chloride 101 mmol/L (98-107) 03/13/23 02:51 Carbon Dioxide 26 mmol/L (22-29) 03/13/23 02:51 Anion Gap 15.1 (5-19) 03/13/23 02:51 BUN 12 mg/dL (8-23) 03/13/23 02:51 Creatinine 0.8 mg/dL (0.5-0.9) 03/13/23 02:51 GFR Calculation Not Reportable 03/13/23 02:51 Glucose 150 mg/dL (65-115) H 03/13/23 02:51 Calculated Osmolality 289 mOsm/kg (285-295) 03/13/23 02:51 Calcium 10.1 mg/dL (8.5-10.5) 03/13/23 02:51 Total Bilirubin 0.5 mg/dL (0.15-1.2) 03/13/23 02:51 AST 28 U/L (0-32) 03/13/23 02:51 ALT 7 U/L (0-33) 03/13/23 02:51 Alkaline Phosphatase 78 U/L (35-105) 03/13/23 02:51 Total Protein 7.5 g/dL (6.6-8.7) 03/13/23 02:51 Albumin 4.0 g/dL (3.5-5.2) 03/13/23 02:51 Globulin 3.5 g/dL (1.3-4.6) 03/13/23 02:51 Lipase 27 U/L (13-60) 03/13/23 02:51 Urine Color Yellow (Yellow) 03/13/23 04:03 Urine Appearance Clear (CLEAR) 03/13/23 04:03 Urine pH 5 (5-7) 03/13/23 04:03 Ur Specific [place] 1.015 (1.005-1.030) 03/13/23 04:03 Urine Protein Neg (Negative) 03/13/23 04:03 Urine Glucose (UA) Norm (Normal) 03/13/23 04:03 Urine Ketones Negative (Negative) 03/13/23 04:03 Urine Blood 2+ (Negative) H 03/13/23 04:03 Urine Nitrate Negative (Negative) 03/13/23 04:03 Urine Bilirubin Neg (Negative) 03/13/23 04:03 Urine Urobilinogen Norm mg/dL (Negative) 03/13/23 04:03 Ur Leukocyte Esterase Negative (Negative) 03/13/23 04:03 Urine RBC 0-4 /hpf (0-2) H 03/13/23 04:03 Urine WBC 0-4 /hpf (0-5) H 03/13/23 04:03 Ur Squamous Epith Cells 0-4 /hpf (0-5) H 03/13/23 04:03 Amorphous Sediment Not Reportable 03/13/23 04:03 Urine Bacteria Trace /hpf (NONE) 03/13/23 04:03 Urine Mucus 1+ /hpf 03/13/23 04:03 No radiology studies performed this visit EKG Data EKG 1: I personally reviewed and interpreted this EKG as follows: EKG interpretation date: 03/13/23 EKG interpretation time: 02:55 Interpretation: sinus spencer hr [address] elevation qrs88 qtc 433 Discharge Plan Discharge Patient Disposition: Home Clinical Impression: Vomiting Qualifiers: Vomiting type: unspecified Nausea presence: with nausea Qualified Code(s): R 11.2 - Nausea with vomiting, unspecified Condition: Stable Prescriptions: No Action (DME) Custom Molded Orthotics See Rx Instructions .Route .MEDSUPPLY Qty: 1 0RF Rx Instructions: As directed naproxen 375 mg tablet 375 mg PO BID PRN (Reason: Pain) bisoprolol-hydrochlorothiazide 5-6.25 mg tablet 1 tab PO QAM Qty: 90 3RF albuterol sulfate 90 mcg/actuation HFA aerosol inhaler 2 puff INHALATION Q4H PRN (Reason: Shortness Of Breath) Qty: 8.5 1RF amoxicillin-pot clavulanate [Augmentin] 500-125 mg tablet 1 tab PO TID 10 Days Qty: 30 0RF ciprofloxacin HCl 250 mg tablet 250 mg PO BID Qty: 14 0RF prednisone 10 mg tablet 10 mg PO DAILY Qty: 5 0RF promethazine-DM 6.25-15 mg/5 mL syrup 5 ml PO Q6H PRN (Reason: cough) Qty: 118 2RF Prozac 20 mg capsule 20 mg PO DAILY@18 Qty: 30 5RF diazepam 5 mg tablet 5 mg PO .COMPLEX PRN (Reason: anxiety) Qty: 40 5RF Rx Instructions: Take at bedtime and as needed for panic attacks. ondansetron HCl 4 mg tablet 4 mg PO TID PRN (Reason: Nausea And Vomiting) Gracie Allergy 180 mg Tablet 180 mg PO DAILY Tylenol Ex Str Rapid Release 500 mg Tablet 500 mg PO Q6H PRN (Reason: Pain) Nitrostat 0.4 mg Tablet, Sublingual 0.4 mg SUBLINGUAL Q5M PRN (Reason: Chest Pain) Rx Instructions: do not exceed 3 doses per episode Vitamin D3 50 mcg (2,000 unit) Capsule 50 mcg PO .TWICE A WEEK aspirin 81 mg tablet,delayed release (DR/EC) 81 mg PO DAILY Qty: 30 0RF Discharge Orders: Discharge ED (Routine); Ordered 03/13/23 Ordered By: Deshaun Newberry Referrals: Nathan Patten MD [Primary Care Provider] - 1-3 days Discharge Diet: Advance as tolerated Discharge Activity: Resume usual activity Patient Instructions: Acute Nausea and Vomiting (ED) Coding Level of Care Code ED At Home Independent Call Center Agent for Alberto Roa
[2023-03-13] MEDS: sodium chloride 0.9% 1,000 ML 999 ML IV (02:45)
[2023-03-13 02:46] VITALS: BP 119/57; PULSE 62; O2SAT 94
[2023-03-13 03:02] LABS: Basophils % 0.2 %; Eosinophils # 0.2 10^3/uL (0.0-0.8); Eosinophils % 1.6 %; Hematocrit 42.9 % (36-47); Lymphocytes # 0.9 10^3/uL (0.8-4.8); Lymphocytes % 8.1 %; Mean Corpuscular HGB Conc 32.9 g/dL (30-55); Mean Corpuscular Hemoglobin 29.6 pg (27-33); Mean Corpuscular Volume 89.9 fl (85-98); Mean Platelet Volume 9.8 fL (7.4-10.4); Monocytes # 0.5 10^3/uL (0.2-0.9); Monocytes % 4.5 %; Neutrophils # 9.77 10^3/uL (1.8-7.7); Neutrophils % 85.2 %; Nucleated Red Blood Cells % 0 %; Platelet Count 233 10^3/cmm (157-399); Red Blood Count 4.77 10^6/uL (3.85-5.65); Red Cell Distribution Width 12.7 % (12.1-15.1); White Blood Count 11.46 10^3/uL (3.29-11.43)
[2023-03-13 03:20] LABS: Alanine Aminotransferase 7 U/L (0-33); Alkaline Phosphatase 78 U/L (35-105); Anion Gap 15.1 (5-19); Aspartate Amino Transferase 28 U/L (0-32); Blood Urea Nitrogen 12 mg/dL (8-23); Calcium 10.1 mg/dL (8.5-10.5); Carbon Dioxide 26 mmol/L (22-29); Chloride 101 mmol/L (98-107); Globulin 3.5 g/dL (1.3-4.6); Glucose 150 mg/dL (65-115); Lipase 27 U/L (13-60); Osmolality Calculated 289 mOsm/kg (285-295); Potassium 4.1 mmol/L (3.5-5.1); Sodium 138 mmol/L (136-145); Total Bilirubin 0.5 mg/dL (0.15-1.2); Total Protein 7.5 g/dL (6.6-8.7)
[2023-03-13] MEDS: iohexol 350 mg/mL 500 mL Btl (per mL) IV (03:44)
[2023-03-13 04:14] LABS: Add Urine Culture? No; Add Urine Microscopic? YES; Bacteria Urine TRACE /hpf; Bilirubin Urine Neg (Negative); Blood Urine 2+ (Negative); Glucose Urine UA Norm (Normal); Ketones Urine Negative (Negative); Leukocyte Esterase Urine Negative (Negative); Mucus Urine 1+ /hpf; Nitrate Urine Negative (Negative); Protein Urine Neg (Negative); RBC Urine 0-4 /hpf (0-2); Specific Gravity, Urine 1.015 (1.005-1.030); Squamous Epithelial Cell Urine 0-4 /hpf (0-5); Urine Appearance Clear (CLEAR); Urine Color Yellow (Yellow); Urobilinogen Urine Norm (Negative); WBC Urine 0-4 /hpf (0-5); pH Urine 5 (5-7)
[2023-03-13 04:50] VITALS: BP 136/75; PULSE 64; O2SAT 97
[2023-03-13 05:09] VITALS: BP 136/75; PULSE 64; O2SAT 98
== END 2023-03-13 05:09 | disposition home or self-care (01) ==
PROVIDERS: Emergency Provider Emergency Medicine; PCP Family Medicine
DX: R11.2 Nausea with vomiting, unspecified (principal); Z79.82 Long term (current) use of aspirin; E78.5 Hyperlipidemia, unspecified; I10 Essential (primary) hypertension
CPT/HCPCS: 36415; 74177; 80053; 81001; 83690; 85025; 93005; 99285; J7030; Q9967

== ENCOUNTER → 2023-05-13 11:56 | Outpatient (BNVA) | payer MEDICARE, SELFPAY | PROVIDERS: PCP Family Medicine; Visit Provider Clinical Nurse Specialist Adult Health | DX: N39.0 Urinary tract infection, site not specified (principal); R35.0 Frequency of micturition | CPT/HCPCS: 81000; 87086 ==

== ENCOUNTER 2023-07-23 22:50 | Inpatient (IN) | payer MEDICARE, SELFPAY ==
--- NOTE | 2023-07-23 22:50 | ECG_ITS ---
[facility] Test Date: 2023-07-23 Pat Name: Evelin Venegas Department: Room: Gender: Female Bacteriologist Soil: : 1945 Requested By: Marcos Duran Order Number: [id number] Bridget MD: Freddie Fuentes M.D. Measurements Intervals [place] Rate: 58 P: -9 ME: 159 QRS: 20 QRSD: 88 T: -74 QT: 421 QTc: 417 Interpretive Statements SINUS BRADYCARDIA ST DEVIATION AND MODERATE T-WAVE ABNORMALITY, CONSIDER LATERAL ISCHEMIA [-0.1+ mV T-WAVE IN I/aVL/V5/V6] ST DEVIATION AND MODERATE T-WAVE ABNORMALITY, CONSIDER INFERIOR ISCHEMIA [-0.1+ mV T-WAVE IN II/aVF] Compared to ECG 03/13/2023 02:55:05 Possible ischemia now present Sinus arrhythmia no longer present T-wave abnormality still present Electronically Signed On 07-24-2023 12:33:54 CDT by Freddie Fuentes M.D. [email or web address]/store/NU/[id number] f
[2023-07-23 22:57] VITALS: BP 156/69; PULSE 63; RESP 18; TEMP 36.6; O2SAT 100
--- NOTE | 2023-07-23 23:05 | XRR_ITS ---
PROCEDURE INFORMATION: Exam: XR Chest Exam date and time: 07/23/2023 11:15 PM Age: 77 years old Clinical indication: Shortness of breath and other: Weakness and nausea; Additional info: Chest pain TECHNIQUE: Imaging protocol: Radiologic exam of the chest. Views: 1 view. COMPARISON: CR XR chest 1V portable [id number] 07/25/2021 8:25 AM FINDINGS: Lungs: Unremarkable. No consolidation. Pleural spaces: Unremarkable. No pleural effusion. No pneumothorax. Heart/Mediastinum: Unremarkable. No cardiomegaly. Bones/joints: Curvature of the lumbar spine convex to the right. XR/XR chest 1V portable [id number] IMPRESSION: No acute cardiopulmonary process.
--- NOTE | 2023-07-23 23:10 | W.ED.CHESTPA ---
HPI - Chest Pain General: Chief Complaint: Chest Pain Stated Complaint: Chest Pains Time Seen by Provider: 07/23/23 23:09 History of Present Illness: 77-year-old female with a history of hypertension, anxiety hyperlipidemia and depression who presents the emergency room with chest discomfort. She said this started earlier today. Initially she said it just felt like it was musculoskeletal pain. Then it developed into a pressure later this afternoon. She had pain into her arms bilaterally. They when she was going to bed she checked her blood pressure and it was elevated with systolics in the 180s. She said this is very unlike her. So she came to the emergency room. She has no known cardiac history. No cough. No fevers. No shortness of breath. No lower extremity swelling. No abdominal pain. She says she did have some nausea earlier. No vomiting. Review of Systems Narrative: Constitutional symptoms: Negative except as documented in HPI. Skin symptoms: Negative except as documented in HPI. Eye symptoms: Negative except as documented in HPI. ENMT symptoms: Negative except as documented in HPI. Respiratory symptoms: Negative except as documented in HPI. Cardiovascular symptoms: Negative except as documented in HPI. Gastrointestinal symptoms: Negative except as documented in HPI. Genitourinary symptoms: Negative except as documented in HPI. Musculoskeletal symptoms: Negative except as documented in HPI. Neurologic symptoms: Negative except as documented in HPI. Psychiatric symptoms: Negative except as documented in HPI. Endocrine symptoms: Negative except as documented in HPI. [facility] ED PFSH: Medical History (Updated 07/24/23 @ 01:46 by Stephanie Baird MD) Panic disorder [episodic paroxysmal anxiety] Psychiatric care Major depressive disorder, recurrent, mild Uterine fibroid Recurrent urinary tract infection Hyperlipemia Diverticulosis Gastroesophageal reflux disease Depression Hypertension Surgical History History of colonoscopy 2004 History of esophagogastroduodenoscopy (EGD) 2004 History of dilation and curettage History of mandibular surgery TMJ surgery S/P tonsillectomy and adenoidectomy Family History Grandfather Colon cancer maternal Mother , Age 62 from brain cancer. Hypercholesteremia Hypertension Father , Age 39 due to blood clot after heart valve replacement No problems noted. Social History (Reviewed 05/13/23 @ 12:23 by JUAN A Figueroa Smoking and tobacco/nicotine status: never used tobacco/nicotine Alcohol intake: current Alcohol intake frequency: holidays/special occasions only Substance/Drug Use: never Physical Exam Narrative: EXAM NARRATIVE: General: Alert, no acute distress. Skin: Warm, dry. Head: Normocephalic, atraumatic. Neck: Supple, trachea midline. Eye: Extraocular movements are intact. Ears, nose, mouth and throat: mucosa moist. Cardiovascular: Regular, Normal peripheral perfusion. Respiratory: Lungs are clear to auscultation, respirations are non-labored, breath sounds are equal, Symmetrical chest wall expansion. Gastrointestinal: Soft, Nontender, Non distended, Normal bowel sounds. Musculoskeletal: Normal ROM, no deformity. Neurological: Alert and oriented, No focal neurological deficit observed. Psychiatric: Cooperative, appropriate mood & affect. Course Vital Signs: Vital signs: Vital Signs Temperature 98 F 07/23/23 22:57 Pulse Rate 61 07/24/23 01:05 Respiratory Rate 16 07/24/23 01:05 Blood Pressure 133/65 07/24/23 01:05 Pulse Oximetry 97 07/24/23 01:05 Oxygen Delivery Me thod Room Air 07/24/23 00:36 MDM - Chest Pain Medical Decision Making Differential diagnosis for patient with chest pain includes but is not limited to and based on the above HPI, review of systems and physical exam: Pneumonia. unstable angina. angina. Acute coronary syndrome / FL. Pulmonary embolism. Costochondritis / musculoskeletal. Pleurisy. Pericarditis. Esophageal spasm. Pancreatis. Cholecystitis. Workup: Lab work, chest X-ray and EKG ordered to evaluate, rule in and rule out above pathologies. Initial EK rate 58. Sinus bradycardia. There is diffuse ST depression in the inferior and lateral leads. Perhaps some mild elevation in V1, no ectopy, normal NH & QRS intervals, This was reviewed and interpreted by myself the ER physician at 2252. I reviewed an EKG from February of this year. These ST depressions are definitely new compared to the previous EKG. Consultation: I spoke with Dr. Whiting with the cardiology service. I had concern that this might be a STEMI he reviewed the EKG and feels that this is not a STEMI. Chest x-ray: No acute process. No infiltrate. No pneumothorax. No cardiomegaly. This was reviewed and interpreted by myself the ER physician. Lab Review: Laboratory results were reviewed and interpreted by myself the emergency room physician. White count 7. Hemoglobin is 14.5. BUN and creatinine are 15 and 0.9. This is all normal. Initial troponin is 97 which is slightly elevated. This should not be explained by renal function and likely is real. Consultation: I spoke with Dr. Whiting again after elevated troponin. He still feels this is just a non-STEMI and recommends admission and to speak with who is on-call for general in the morning. Consultation: I spoke with Dr. Dixon with the hospitalist service. He recommends Lovenox and admission to the cardiac stepdown unit. Delta troponin reported was up to 25. Cardiac monitoring: This was ordered, reviewed and interpreted by myself the emergency room physician. At around 1:30 AM patient started having some nausea. Nursing noticed changes on the quality assurance monitor body look to be some ST elevation. This was sporadic and then became constant and she started having chest pain. Repeat EKG was done at 133. This showed a STEMI. At that time I called the surfboard maker Repeat EKG: Time 1:33 AM rate 50. Sinus bradycardia. Patient now has marked ST elevation in the inferior leads with depression in V2 and V5 now. This is significantly changed from previous. No ectopy, normal NH & QRS intervals, This was reviewed and interpreted by myself the ER physician at 1:35 AM Consultation: I spoke again with Dr. Whiting. He reviewed the EKG and agreed to activate the Performance Improvement Coordinator for STEMI. This was activated at 1:38 AM. He recommended addition of 4000 units of heparin and 600 of Plavix which was ordered. I reviewed the patient's medical record. Reexamination: Patient is now having chest pain. She is given Plavix and heparin. With this being an inferior FL not going to give any further nitroglycerin. Morphine is ordered Assessment and plan: ST elevation myocardial infarction Non-ST elevation myocardial infarction Chest pain Hypertension -Patient initially had a non-ST elevation myocardial infarction. She then evolved into a STEMI. This happened about 1:30 AM. She had changes on her cardiac monitoring and new symptoms of nausea and then some chest discomfort. -Performance Improvement Coordinator activated at that time and she has been taken to the Performance Improvement Coordinator. -She has received 324 of ODT aspirin. 4000 units of heparin. 600 mg of Plavix. -I discussed the patient with the hospitalist on-call who is admitting the patient. - Discussed findings and plan with patient. Answered any questions. - All laboratory values were reviewed and interpreted personally by myself, the ER physician - All imaging was reviewed and interpreted personally by myself, the ER physician. - Evaluation and treatment of this problem were appropriate in the emergency setting -I spent a total of >35 minutes of critical care time managing the patient, independent of any other practitioner. -The time involved in the performance of separately reportable procedures was not counted towards critical care time. Lab Data 07/23/23 23:08 07/23/23 23:08 Radiology Impressions Chest X-Ray 07/23/23 23:05 IMPRESSION: No acute cardiopulmonary process. Laboratory Results WBC 7.13 10^3/uL (3.29-11.43) 07/23/23 23:08 RBC 5.02 10^6/uL (3.85-5.65) 07/23/23 23:08 Hgb 14.50 g/dL (11.27-16.99) 07/23/23 23:08 Hct 43.4 % (36-47) 07/23/23 23:08 MCV 86.5 fl (85-98) 07/23/23 23:08 MCH 28.9 pg (27-33) 07/23/23 23:08 MCHC 33.4 g/dL (30-55) 07/23/23 23:08 RDW 12.8 % (12.1-15.1) 07/23/23 23:08 Plt Count 215 10^3/cmm (157-399) 07/23/23 23:08 MPV 9.9 fL (7.4-10.4) 07/23/23 23:08 Neut % (Auto) 53.4 % 07/23/23 23:08 Lymph % (Auto) 33.7 % 07/23/23 23:08 [place] % (Auto) 8.6 % 07/23/23 23:08 Eos % (Auto) 3.4 % 07/23/23 23:08 Baso % (Auto) 0.6 % 07/23/23 23:08 Neut # (Auto) 3.82 10^3/uL (1.8-7.7) 07/23/23 23:08 Lymph # (Auto) 2.4 10^3/uL (0.8-4.8) 07/23/23 23:08 [place] # (Auto) 0.6 10^3/uL (0.2-0.9) 07/23/23 23:08 Eos # (Auto) 0.2 10^3/uL (0.0-0.8) 07/23/23 23:08 Baso # (Auto) 0.0 10^3/uL (0.0-0.1) 07/23/23 23:08 Nucleated RBC % (auto) 0 % 07/23/23 23:08 Nucleated RBCs # 0.0 /100WBC 07/23/23 23:08 Sodium 138 mmol/L (136-145) 07/23/23 23:08 Potassium 3.7 mmol/L (3.5-5.1) 07/23/23 23:08 Chloride 101 mmol/L (98-107) 07/23/23 23:08 Carbon Dioxide 26 mmol/L (22-29) 07/23/23 23:08 Anion Gap 14.7 (5-19) 07/23/23 23:08 BUN 15 mg/dL (8-23) 07/23/23 23:08 Creatinine 0.9 mg/dL (0.5-0.9) 07/23/23 23:08 GFR Calculation Not Reportable 07/23/23 23:08 Glucose 111 mg/dL (65-115) 07/23/23 23:08 Calculated Osmolality 288 mOsm/kg (285-295) 07/23/23 23:08 Calcium 9.8 mg/dL (8.5-10.5) 07/23/23 23:08 Total Bilirubin 0.5 mg/dL (0.15-1.2) 07/23/23 23:08 AST 35 U/L (0-32) H 07/23/23 23:08 ALT 17 U/L (0-33) 07/23/23 23:08 Alkaline Phosphatase 65 U/L (35-105) 07/23/23 23:08 Troponin T Baseline 97 ng/L (0-10) H 07/23/23 23:08 Troponin T 120 Minute 122.8 ng/L (0-10) H 07/24/23 01:02 Delta Troponin T 25.8 ABS# (0-10) H* 07/24/23 01:02 NT-Pro-B Natriuret Pep 360 pg/mL (0-450) 07/23/23 23:08 Total Protein 7.1 g/dL (6.6-8.7) 07/23/23 23:08 Albumin 4.0 g/dL (3.5-5.2) 07/23/23 23:08 Globulin 3.1 g/dL (1.3-4.6) 07/23/23 23:08 Lipase 27 U/L (13-60) 07/23/23 23:08 Urine Color Yellow (Yellow) 07/24/23 00:34 Urine Appearance Clear (CLEAR) 07/24/23 00:34 Urine pH 6 (5-7) 07/24/23 00:34 Ur Specific [place] 1.010 (1.005-1.030) 07/24/23 00:34 Urine Protein Neg (Negative) 07/24/23 00:34 Urine Glucose (UA) Norm (Normal) 07/24/23 00:34 Urine Ketones Negative (Negative) 07/24/23 00:34 Urine Blood Neg (Negative) 07/24/23 00:34 Urine Nitrate Negative (Negative) 07/24/23 00:34 Urine Bilirubin Neg (Negative) 07/24/23 00:34 Urine Urobilinogen Neg mg/dL (Negative) 07/24/23 00:34 Ur Leukocyte Esterase Negative (Negative) 07/24/23 00:34 All radiology interpretation(s) finalized by discharge Discharge Plan Discharge Patient Disposition: Admitted As Inpatient Clinical Impression: Non-ST elevation myocardial infarction (NSTEMI) ST elevation myocardial infarction (STEMI) Qualifiers: Involved coronary artery: other inferior wall coronary artery Qualified Code(s): I21.19 - ST elevation (STEMI) myocardial infarction involving other coronary artery of inferior wall Hypertension Qualifiers: Hypertension type: primary hypertension Qualified Code(s): I10 - Essential (primary) hypertension Chest pain Qualifiers: Chest pain type: chest pain due to myocardial ischemia Ischemic chest pain type: unspecified angina pectoris type Qualified Code(s): I25.9 - Chronic ischemic heart disease, unspecified Condition: Stable Coding Level of Care Code ED Dewaterer Operator for Alberto Roa
[2023-07-23 23:15] LABS: Basophils % 0.6 %; Eosinophils # 0.2 10^3/uL (0.0-0.8); Eosinophils % 3.4 %; Hematocrit 43.4 % (36-47); Lymphocytes # 2.4 10^3/uL (0.8-4.8); Lymphocytes % 33.7 %; Mean Corpuscular HGB Conc 33.4 g/dL (30-55); Mean Corpuscular Hemoglobin 28.9 pg (27-33); Mean Corpuscular Volume 86.5 fl (85-98); Mean Platelet Volume 9.9 fL (7.4-10.4); Monocytes # 0.6 10^3/uL (0.2-0.9); Monocytes % 8.6 %; Neutrophils # 3.82 10^3/uL (1.8-7.7); Neutrophils % 53.4 %; Nucleated Red Blood Cells % 0 %; Platelet Count 215 10^3/cmm (157-399); Red Blood Count 5.02 10^6/uL (3.85-5.65); Red Cell Distribution Width 12.8 % (12.1-15.1); White Blood Count 7.13 10^3/uL (3.29-11.43)
[2023-07-23] MEDS: aspirin 81 mg Chew Tablet 324 MG PO (23:22)
[2023-07-23] MEDS: nitroglycerin 0.4 mg sublingual Tablet 0.400000000000000022 MG SUBLINGUAL (23:23)
[2023-07-23 23:33] LABS: Troponin(5th) Baseline 97 ng/L (0-10)
[2023-07-23 23:43] LABS: Alanine Aminotransferase 17 U/L (0-33); Alkaline Phosphatase 65 U/L (35-105); Anion Gap 14.7 (5-19); Aspartate Amino Transferase 35 U/L (0-32); Blood Urea Nitrogen 15 mg/dL (8-23); Calcium 9.8 mg/dL (8.5-10.5); Carbon Dioxide 26 mmol/L (22-29); Chloride 101 mmol/L (98-107); Creatinine Clr Calc Pharmacy 49.2376; Globulin 3.1 g/dL (1.3-4.6); Glucose 111 mg/dL (65-115); Lipase 27 U/L (13-60); NT Pro B Type Natriuretic Pept 360 pg/mL (0-450); Osmolality Calculated 288 mOsm/kg (285-295); Potassium 3.7 mmol/L (3.5-5.1); Sodium 138 mmol/L (136-145); Total Bilirubin 0.5 mg/dL (0.15-1.2); Total Protein 7.1 g/dL (6.6-8.7)
[2023-07-23 23:46] VITALS: BP 114/62; PULSE 57; RESP 19; O2SAT 98
[2023-07-24] VITALS (52 sets, daily range): BP systolic 57–145; BP diastolic 27–76; PULSE 49–77; RESP 3–31; TEMP 35.9–36.6; O2SAT 90–100
[2023-07-24 00:38] LABS: Add Urine Microscopic? NO; Charge for UA Resulting for Rev
[2023-07-24 00:55] LABS: Bilirubin Urine Neg (Negative); Blood Urine Neg (Negative); Glucose Urine UA Norm (Normal); Ketones Urine Negative (Negative); Leukocyte Esterase Urine Negative (Negative); Nitrate Urine Negative (Negative); Protein Urine Neg (Negative); Urine Appearance Clear (CLEAR); Urine Color Yellow (Yellow); Urobilinogen Urine Neg (Negative); pH Urine 6 (5-7)
--- NOTE | 2023-07-24 01:05 | ECG_ITS ---
[facility] Test Date: 2023-07-24 Pat Name: Evelin Venegas Department: Room: Gender: Female General Service Officer: : 1945 Requested By: Marcos Duran Order Number: [id number] Bridget MD: Freddie Fuentes M.D. Measurements Intervals [place] Rate: 52 P: 10 ME: 164 QRS: 0 QRSD: 88 T: -52 QT: 434 QTc: 404 Interpretive Statements SINUS BRADYCARDIA ST DEVIATION AND MODERATE T-WAVE ABNORMALITY, CONSIDER LATERAL ISCHEMIA [-0.1+ mV T-WAVE IN I/aVL/V5/V6] ST DEVIATION AND MODERATE T-WAVE ABNORMALITY, CONSIDER INFERIOR ISCHEMIA [-0.1+ mV T-WAVE IN II/aVF] Compared to ECG 07/23/2023 22:50:33 No significant changes Electronically Signed On 07-24-2023 12:36:07 CDT by Freddie Fuentes M.D. [email or web address] [email or web address] [email or web address]/store/OM/[id number]
--- NOTE | 2023-07-24 01:14 | ECG_ITS ---
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 Measurements Intervals [place] Rate: 53 P: 19 SC: 171 QRS: 6 QRSD: 88 T: -6 QT: 440 QTc: 415 Interpretive Statements SINUS BRADYCARDIA NONSPECIFIC ST & T-WAVE ABNORMALITY Compared to ECG 07/24/2023 01:05:26 Possible ischemia no longer present T-wave abnormality still present Electronically Signed On 07-24-2023 12:36:04 CDT by Freddie Fuentes M.D. [email or web address] medical specialty [email or web address]/OM/[id number]
--- NOTE | 2023-07-24 01:33 | ECG_ITS ---
[facility] Test Date: 2023-07-24 Pat Name: Evelin Venegas Department: Room: [facility] Gender: Female [employer]al [employer]al: : 1945 Requested By: Stephanie Lutz Order Number: [id number] Bridget MD: Freddie Fuentes M.D. Measurements Intervals [place] Rate: 50 P: -2 SC: 132 QRS: 38 QRSD: 101 T: 110 QT: 451 QTc: 412 Interpretive Statements SINUS BRADYCARDIA MARKED ST ELEVATION, CONSIDER INFERIOR INJURY [MARKED ST ELEVATION W/O NORMALLY INFLECTED T-WAVE IN II/aVF] ACUTE IA Compared to ECG 07/24/2023 01:14:37 ST (T wave) deviation now present Myocardial infarct finding now present T-wave abnormality no longer present Electronically Signed On 07-24-2023 12:36:01 CDT by Freddie Fuentes M.D. [email or web address]
[2023-07-24 01:38] LABS: Troponin 5 2HR 122.8 ng/L (0-10); Troponin 5 2HR Delta 25.8 ABS# (0-10)
--- NOTE | 2023-07-24 01:41 | P.HP_ITS ---
Providers/Chief Complaint 2 Primary Care Provider: Nathan Patten MD Chief Complaint: Chest Pains History of Present Illness Pleasant 77-year-old lady with history of hypertension, prolonged time has been treated with bisoprolol, previously also on a statin for some time, does not currently take on. Without history of smoking, denies any family history of CAD. She was working in her yard yesterday and felt some pain in her chest radiating to her shoulders, both arms, she felt that she may be overworked herself somewhat. However, the symptoms would not go away and her blood pressure started going rather high compared to usual so she decided to head in to ER for evaluation. Blood pressure on presentation was 156/69 which she states is higher than usual. She has not missed or changed any of her medications recently, denies any significant salt intake or any significant recent stressors. She does report having some feeling of getting hot and then cold earlier today, thinking she may have developed a flulike illness. In ER her symptoms improved with nitroglycerin and blood pressure came down. First troponin noted with moderate elevation up to 97. EKG was discussed with cardiology by ER physician due to ST depression, 1-lead isolated ST segment with mild elevation. Repeat EKG was discussed with cardiology, without significant change. Her chest pain has been without recurrence so far. While still in the ER. To have dynamic changes on telemetry strip, evaluated by ER physician found to have changes consistent with STEMI, cardiology contacted again, STEMI code called, cardiology will be assuming care for STEMI management. Review of Systems 2 Const: Denies: fever(s), chills, body aches or malaise ENMT: Denies: throat pain Card: Reports: chest pain; Denies: edema, pre-syncope or dyspnea on exertion Resp: Denies: dyspnea, productive cough, change in phlegm color or hemoptysis GI: Denies: abdominal pain, nausea, vomiting, diarrhea, constipation, hematochezia or melena : Denies: flank pain, urinary frequency or hematuria Musc: Denies: back pain, joint swelling or joint redness Skin/Breast: Denies: rash or new lesions Neuro: Denies: headache(s), dizziness or confusion Medications/Allergies Home Medications Medication Instructions Recorded Confirmed Last Taken Type naproxen 375 mg tablet 375 mg PO BID PRN Pain 04/25/19 05/28/23 Unknown History Custom Molded Orthotics #1 ea 08/09/20 05/28/23 Unknown Rx acetaminophen 500 mg tablet 500 mg PO Q6H PRN Pain 07/25/21 05/28/23 Unknown History aspirin 81 mg tablet,delayed 81 mg PO DAILY #30 tabs 07/25/21 05/28/23 Unknown Rx release cholecalciferol (vitamin D3) 50 50 mcg PO .TWICE A WEEK 07/25/21 05/28/23 Unknown History mcg (2,000 unit) capsule (Vitamin D3) fexofenadine 180 mg tablet 180 mg PO DAILY 07/25/21 05/28/23 Unknown History (Gracie Allergy) nitroglycerin 0.4 mg sublingual 0.4 mg sublingual Q5M PRN Chest 07/25/21 05/28/23 Unknown History tablet (Nitrostat) Pain ondansetron HCl 4 mg tablet 4 mg PO TID PRN Nausea And Vomiting 07/25/21 05/28/23 07/23/21 History bisoprolol 5 1 tab PO QAM #90 tabs 08/21/22 05/28/23 Unknown Rx mg-hydrochlorothiazide 6.25 mg tablet prednisone 10 mg tablet 10 mg PO DAILY #5 tabs 03/12/23 05/28/23 Unknown Rx ondansetron 4 mg disintegrating 4 mg PO Q6H PRN nausea and 03/13/23 05/28/23 Unknown Rx tablet vomiting #14 tabs albuterol sulfate 90 mcg/actuation 2 puff inhalation Q4H PRN 05/01/23 05/28/23 Unknown Rx aerosol inhaler Shortness Of Breath #8.5 grams fluoxetine 20 mg capsule (Prozac) 20 mg PO DAILY@18 #30 caps 05/28/23 05/28/23 Unknown Rx diazepam 5 mg tablet 5 mg PO .COMPLEX PRN anxiety #40 07/01/23 Unknown Rx tabs Allergies Allergy/AdvReac Type Severity Reaction Status Date / Time epinephrine Allergy increased Verified 07/23/23 23:01 heart rate erythromycin base Allergy upset Verified 07/23/23 23:01 stomach lactase [From Dairy Aid] Allergy lactosintol Verified 07/23/23 23:01 erate sulfamethizole Allergy not Verified 07/23/23 23:01 effective Sulfonylureas Allergy not Verified 07/23/23 23:01 effective trimethoprim Allergy uneffective Verified 07/23/23 23:01 PFSH Acute 2 PFSH: Medical History Panic disorder [episodic paroxysmal anxiety] Psychiatric care Major depressive disorder, recurrent, mild Uterine fibroid Recurrent urinary tract infection Hyperlipemia Diverticulosis Gastroesophageal reflux disease Depression Hypertension Surgical History History of colonoscopy 2004 History of esophagogastroduodenoscopy (EGD) 2004 History of dilation and curettage History of mandibular surgery TMJ surgery S/P tonsillectomy and adenoidectomy Family History Grandfather Colon cancer maternal Mother , Age 62 from brain cancer. Hypercholesteremia Hypertension Father , Age 39 due to blood clot after heart valve replacement No problems noted. Social History Smoking and tobacco/nicotine status: never used tobacco/nicotine Alcohol intake: current Alcohol intake frequency: holidays/special occasions only Substance/Drug Use: never Vitals/I&O/Wt Last Vital Signs Temp 98 F 07/23/23 22:57 Pulse 61 07/24/23 01:05 Resp 16 07/24/23 01:05 BP 133/65 07/24/23 01:05 Pulse Ox 97 07/24/23 01:05 O2 Del Method Room Air 07/24/23 00:36 Weight last 48 hrs Weight 65.771 kg Physical Exam 2 Narrative: Accompanied by her friend. Const: COMMON NORMALS: patient oriented x3 and alert GENERAL APPEARANCE: c ooperative ORIENTATION/CONSCIOUSNESS: Yes awake HENMT: COMMON NORMALS: oropharynx normal Neck/C-Spine: COMMON NORMALS: no JVD Resp: COMMON NORMALS: normal respiratory effort and clear to auscultation bilaterally AUSCULTATION: clear to auscultation bilaterally Cardio: COMMON NORMALS: no JVD, regular rhythm, S1 normal heart sound present, S2 normal heart sound present and No murmurs present (Cardio) RHYTHM: regular rhythm HEART SOUNDS: S1 normal heart sound present and S2 normal heart sound present GI: COMMON NORMALS: Normal to inspection, nondistended, normoactive bowel sounds present, Soft to palpation and non-tender PALPATION: Yes Soft to palpation Extremity: COMMON NORMALS: no joint enlargement and no pedal edema Neuro: COMMON NORMALS: patient oriented x3 and moves all extremities S ENSORIUM/ORIENTATION: Yes alert Skin: COMMON NORMALS: no rashes or lesions noted GENERAL SKIN EXAM: no rashes or lesions noted Data 07/23/23 23:08 07/23/23 23:08 A&P Assessment and plan (1) ST elevation myocardial infarction (STEMI): Reviewed vitals, CBC, MP, baseline troponin, NT proBNP, lipase, UA, chest x-ray, EKG, ER note, discussed with ER provider. We initially discussed with her treatment for suspected NSTEMI versus possibly uncontrolled hypertension with demand ischemia, additional treatment with antiplatelet, statin, continue beta- darci, anticoagulation, additional assessment with echocardiogram, telemetry monitoring, consideration of stress testing as her symptoms had resolved. Monitor for risk of bleeding with anticoagulation, antiplatelet. Monitor on telemetry with risk of arrhythmia. However, with dynamic changes on EKG while still in ER, with finding of STEMI cardiology assuming care for further STEMI care. Qualifiers: Involved coronary artery: other inferior wall coronary artery Qualified Code(s): I21.19 - ST elevation (STEMI) myocardial infarction involving other coronary artery of inferior wall Plan Hypertension: On bisoprolol-HCTZ at home. Blood pressure here improved with nitroglycerin presentation. Sinus bradycardia: While on beta-darci. Not much room to go up dose. In case of further uncontrolled hypertension would benefit from another medication. Monitor telemetry. HLD: Would benefit from statin Abdominal aortic aneurysm: Would benefit from aspirin, statin. Depression Uterine fibroid Other medical problems. Attestations 2 Medical Necessity Statement*: Admission of over 2 midnights anticipated for assessment and management of acute coronary syndrome with STEMI. Diagnoses ST elevation myocardial infarction (STEMI) I21.19 Involved coronary artery: other inferior wall coronary artery
[2023-07-24] MEDS: heparin 5,000 unit/mL INJ 1 mL 3900 UNIT IVP (01:42)
[2023-07-24] MEDS: clopidogrel 300 mg Tablet 600 MG PO (01:44)
[2023-07-24] MEDS: ondansetron 2 mg/ML SDV 2 mL 4 MG IVP (01:49)
[2023-07-24] MEDS: morphine 4 mg/mL SDV 1 mL 2 MG IVP (01:49)
[2023-07-24] MEDS: sodium chloride 0.9% 1,000 ML 999 ML IV (02:05)
[2023-07-24] MEDS: clopidogrel 300 mg Tablet PO (02:06)
--- NOTE | 2023-07-24 02:06 | XACV_ITS ---
Ht: 160 cm Wt: 66 kg BSA: 1.72 m2 Gender: Female : 1945 Exam Priority: Routine Indication(s): - ST changes Procedure(s): Procedure Description: Diagnostic procedure Procedure Description: PCI procedure Procedure Description: Left Heart Catheterization Procedure Description: Left ventriculography Procedure Description: Drug Eluting Coronary Stent Procedure Description: Coronary Angiography Johanne PIERCE; Diagnostic Cath Status: Emergency Diagnostic Findings * More than 12 hours of intermittent chest pain. Arrived to the emergency room with EKG initially suggesting ST depression. Third EKG ST elevation inferiorly. Patient's blood pressure dropped to 50 systolic. Resuscitated with fluids. Procedure done from the groin since there was no radial pulse at the time of the procedure. * Angiography reveals right coronary artery dominance. The right coronary artery is nearly occluded. There is thrombus in the mid vessel. The vessel was open at the time of the initial angiogram. The left main is unremarkable. Catheter subselect the LAD. The LAD contains a 20 to 30% proximal stenosis. The vessel is relatively small and gives off 2 small diagonal branches. The circumflex is likewise small and difficult to see. There are 2 marginal branches. There are no significant lesions.. PCI Status: Emergency PCI LVEF Assessed: Yes PCI Indication: STEMI - Immediate PCI for STEMI Interventional Findings * The right coronary artery is primarily stented with a 3.5 x 26 mm stent. There was good ELOINA-3 flow post stent placement. Patient's ST segments came back to normal and her chest pain resolved. She did have several runs of accelerated idioventricular rhythm. No other complications. Blood pressure much more stable upon leaving the lab. Decision for PCI with Surgical Consult: No PCI for Multi-vessel Disease: No Conclusions 1. Inferior wall HI with nearly occluded right coronary artery. Right coronary artery stented. Minimal disease in the left system. Mid inferior and inferior basal akinesis. Ejection fraction 40%. Interventional RX Recommendation: PCI w/o planned CABG Diagnostic RX Recommendation: PCI w/o planned CABG Anticoagulation: Heparin Ventriculography Ejection Fraction: 40.0 % Pressures Phase:Rest AO : 128 / 70 ( 96 ) @ 9:51:20 PM 138 / 98 ( 117 ) @ 9:51:20 PM 157 / 137 ( 111 ) @ 9:51:20 PM 161 / 80 ( 113 ) @ 9:51:20 PM 161 / 73 ( 114 ) @ 9:51:20 PM LV : 151 / 19 / 28 @ 9:51:20 PM 158 / 18 / 34 @ 9:51:20 PM 160 / 18 / 34 @ 9:51:20 PM Valves Phase:DefaultPhase AV : 0.0 @ 2:51:20 AM 0.0 @ 2:51:20 AM AV Mean Gradient: 0.0 @ 2:51:20 AM Clinical Evaluation EBL: 5mL-10mL Procedural Details Pre-Procedure Time Out. Identified patient by full name and date of as verbalized by the patient/guarantor. Does the consent match the physician's order: N/A Emergent. Accurate & Complete Informed Consent: N/A Emergent. Inpatient/Outpatient History & Physical on Chart: N/A Emergent. If H&P is completed, is and addenduem needed: N/A Emergent; If yes, is the addendum complete: N/A Emergent. Visualize and Verify Site with Patient/Guarantor: N/A. Relevant Radiology Images available: N/A. The risks, benefits, and alternatives of sedation and/or procedure were discussed by physician. The patient agrees to continue. Procedure started. Admit Source: Emergency department. [facility] Clinical Fraility Score: 4: Vulnerable. Production Foreman Indications: ACS <= 24 hours. Chest Pain Symptom Assessment: Typical Angina Symptoms. Cardiovascular Instability: Yes, if yes, Persistant Ischemic Symptoms. Correct patient, site and procedure confirmed by cath team. Current diagnosis: STEMI. PERRLA. 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 Lungs clear x 5 lobes. IV Site on Arrival: 20 gauge in the right anticubital. IV Fluids: 0.9% NaCl at KVO. 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 Pre Procedural Pulses: right radial was 2+. Oxygen started at 2liters/min via nasal canula. right groin was prepped with chloroprep then draped in the usual sterile fashion. right radial was prepped with chloroprep then draped in the usual sterile fashion. Physician notified. Baseline sample Acquired. HR: 53 BPM. Physician arrived. Physician scrubbed in. Immediate Pre-Procedure Time Out. Correct Patient: Yes; Correct Procedure: Yes; Correct Site: Yes; Correct Patient Position: Yes; Correct Supplies: Yes; Dried Flammable Prep: Yes; Blood Products Available: N/A;. Lidocaine 1% infiltrated to the right groin. Arterial access obtained. Equipment: 6F - Femoral. 6 djiboutian JR 4 guide catheter was inserted over the wire. Lockhart guidewire was advanced through the guide catheter to lesion in the mid RCA. Inflation Number : 1 Paot [place] [id number] LUDY -Lot Number# [id number] Exp 03/02/2024 was prepped and advanced across the Mid RCA. The stent was deployed at 12 JANIS for 0:26 seconds. Cine run performed of RCA. Results checked. Stent balloon out over wire. Stent inserted to lesion in the mid RCA. Results checked. Guide catheter out. A 5 djiboutian JL4 catheter in over wire. Multiple views taken of left coronary artery. Catheter removed over the standard wire. A 5 djiboutian Angled Pig catheter in over wire. EDP Sample taken: LV 151/19,28; HR: 64 BPM; SpO2: 99%. LV gram performed in CIFUENTES @ 10 mL/second for a total of 30 mL. EDP Sample taken: LV 158/18,34; HR: 65 BPM; SpO2: 99%. Pullback taken: LV 160/18,34; AO 161/80(113); Mean: 0mmHg, Peak to Peak: 0mmHg, SEP: 17sec/min; HR: 67 BPM; SpO2: 98%. A Suture was successful obtaining hemostatsis at the Right Femoral artery insertion site. Catheter removed over the exchange wire. Current Diagnosis : STEMI. Sheath(s) sutured into position with 2-0 silk and sterile 4x4's and Op-site applied over the site. No oozing or signs and symptoms of hematoma noted. Post Procedure: Pulses reassessed and unchanged. PERRLA. 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 No VTE prophylaxis required. Medication's Wasted: Heparin = 4000 u. Medication's Wasted: Lidocaine 1% = 10 mL. Medication's Wasted: Other = Versed 1 mg. Medication's Wasted: Other = Fentanyl 75 mcg. Total IV fluids: 62 mL. PCI Indication: STEMI. Post-op diagnosis:STEMI Acute Mid RCA Occlusion. Complications: none. Estimated blood loss: 5mL-10mL. Responsiveness - Normal response to verbal stimuli; alert and oriented, PERRLA. Airway - Unaffected, no intervention required; spontaneous ventilation. Circulation: W/N/L, pulses unchanged. Nausea/Vomiting: No. Procedure completed. Patient transferred by bed to ICU. Vital chart was stopped. Access Site Site: Right Femoral artery Sheath Size: 6 Fr Hemostasis Method: Suture Hemostasis Success: Successful Procedure Medications Start: 2:23 AM Stop: 2:23 AM Medication: Versed Amount: 1 mg Route: I.V. Start: 2:28 AM Stop: 2:28 AM Medication: Fentanyl Amount: 25 mcg Route: I.V. I, the attending physician, have reviewed and verified all procedure medications. Yes, all medications given per verbal order Report Signatures Finalized by Dr. Deon Whiting MD on 07/24/2023 03:00 AM
--- NOTE | 2023-07-24 02:12 | P.HP_ITS ---
Providers/Chief Complaint 2 Admitting Physician: shabbir Primary Care Provider: Nathan Patten MD Chief Complaint: Chest Pains History of Present Illness Evelin Venegas is a 77 year old female without any prior history of known coronary artery disease who began having chest pain about 14 hours ago. This happened at noon yesterday. It was off and on without any other symptoms. She attributed it to indigestion or other problems. She finally came into the emergency room about 3-1/2 hours ago. Her first [address] segment depression and T wave inversions in lead I, L, 2 3 and aVF and V5 and V6. The third EKG at about 1:30 in the morning some [address] elevation in the inferior leads and V6. There was ST segment depression in leads V1 through V4 and lead I and L. She is diaphoretic with significantly more chest pain now. She had an episode of vomiting after she was given medications. She was given initially 600 mg of Plavix. Another 300 was given after she vomited. She was also given aspirin and 4000 units of heparin. Currently her blood pressure has dropped to 54 systolic. She is being resuscitated with fluids. Her heart rate is in the 40s still maintaining sinus rhythm. Review of Systems 2 Narrative: Review of systems not evaluated due to the acute nature of the illness. Medications/Allergies Home Medications Medication Instructions Recorded Confirmed Last Taken Type naproxen 375 mg tablet 375 mg PO BID PRN Pain 04/25/19 05/28/23 Unknown History Custom Molded Orthotics #1 ea 08/09/20 05/28/23 Unknown Rx acetaminophen 500 mg tablet 500 mg PO Q6H PRN Pain 07/25/21 05/28/23 Unknown History aspirin 81 mg tablet,delayed 81 mg PO DAILY #30 tabs 07/25/21 05/28/23 Unknown Rx release cholecalciferol (vitamin D3) 50 50 mcg PO .TWICE A WEEK 07/25/21 05/28/23 Unknown History mcg (2,000 unit) capsule (Vitamin D3) fexofenadine 180 mg tablet 180 mg PO DAILY 07/25/21 05/28/23 Unknown History (Gracie Allergy) nitroglycerin 0.4 mg sublingual 0.4 mg sublingual Q5M PRN Chest 07/25/21 05/28/23 Unknown History tablet (Nitrostat) Pain ondansetron HCl 4 mg tablet 4 mg PO TID PRN Nausea And Vomiting 07/25/21 05/28/23 07/23/21 History bisoprolol 5 1 tab PO QAM #90 tabs 08/21/22 05/28/23 Unknown Rx mg-hydrochlorothiazide 6.25 mg tablet prednisone 10 mg tablet 10 mg PO DAILY #5 tabs 03/12/23 05/28/23 Unknown Rx ondansetron 4 mg disintegrating 4 mg PO Q6H PRN nausea and 03/13/23 05/28/23 Unknown Rx tablet vomiting #14 tabs albuterol sulfate 90 mcg/actuation 2 puff inhalation Q4H PRN 05/01/23 05/28/23 Unknown Rx aerosol inhaler Shortness Of Breath #8.5 grams fluoxetine 20 mg capsule (Prozac) 20 mg PO DAILY@18 #30 caps 05/28/23 05/28/23 Unknown Rx diazepam 5 mg tablet 5 mg PO .COMPLEX PRN anxiety #40 07/01/23 Unknown Rx tabs Allergies Allergy/AdvReac Type Severity Reaction Status Date / Time epinephrine Allergy increased Verified 07/23/23 23:01 heart rate erythromycin base Allergy upset Verified 07/23/23 23:01 stomach lactase [From Dairy Aid] Allergy lactosintol Verified 07/23/23 23:01 erate sulfamethizole Allergy not Verified 07/23/23 23:01 effective Sulfonylureas Allergy not Verified 07/23/23 23:01 effective trimethoprim Allergy uneffective Verified 07/23/23 23:01 PFSH Acute 2 PFSH: Medical History (Updated 07/24/23 @ 02:15 by Deon Whiting MD) AAA (abdominal aortic aneurysm) Panic disorder [episodic paroxysmal anxiety] Psychiatric care Major depressive disorder, recurrent, mild Uterine fibroid Recurrent urinary tract infection Hyperlipemia Diverticulosis Gastroesophageal reflux disease Depression Hypertension Surgical History History of colonoscopy 2004 History of esophagogastroduodenoscopy (EGD) 2004 History of dilation and curettage History of mandibular surgery TMJ surgery S/P tonsillectomy and adenoidectomy Family History Grandfather Colon cancer maternal Mother , Age 62 from brain cancer. Hypercholesteremia Hypertension Father , Age 39 due to blood clot after heart valve replacement No problems noted. Social History Smoking and tobacco/nicotine status: never used tobacco/nicotine Alcohol intake: current Alcohol intake frequency: holidays/special occasions only Substance/Drug Use: never Vitals/I&O/Wt Last Vital Signs Temp 98 F 07/23/23 22:57 Pulse 62 07/24/23 02:08 Resp 14 07/24/23 02:08 BP 57/27 07/24/23 02:08 Pulse Ox 95 07/24/23 02:08 O2 Del Method Room Air 07/24/23 02:08 Weight last 48 hrs Weight 145 lb Physical Exam 2 Narrative: GENERAL: In general she is diaphoretic and pale and hypotensive. HEENT: Exam within normal limits. NECK: Supple without jugular vein distention. The carotid upstroke is normal without bruits. BACK: Exam normal. LUNGS: Clear. HEART: Regular rate and rhythm. ABDOMEN: Benign without organomegaly or tenderness. EXTREMITIES: No edema. NEUROLOGIC: Exam normal. SKIN: Unremarkable. Data 07/23/23 23:08 07/23/23 23:08 A&P Assessment and plan (1) Hypertension: (2) Hyperlipemia: (3) AAA (abdominal aortic aneurysm): (4) Hypertension: Qualifiers: Hypertension type: primary hypertension Qualified Code(s): I10 - Essential (primary) hypertension (5) Chest pain: Qualifiers: Chest pain type: chest pain due to myocardial ischemia Ischemic chest pain type: unspecified angina pectoris type Qualified Code(s): I25.9 - Chronic ischemic heart disease, unspecified (6) ST elevation myocardial infarction (STEMI): Qualifiers: Involved coronary artery: other inferior wall coronary artery Qualified Code(s): I21.19 - ST elevation (STEMI) myocardial infarction involving other coronary artery of inferior wall Plan Plan is to be taken to the catheterization laboratory now. Attestations 2 Medical Necessity Statement*: She will need intervention and then admission to the hospital. Hospital stay expected to cross 2 midnights. and High Time for a total of 60 minutes, includes reviewing past or interval history, examining/interviewing patient, placing orders, counseling patient/family/other support, updating patient/family/other support, discussing plan of care with staff, communicating with other healthcare providers, documenting encounter and coordinating care Diagnoses Hypertension I10 Hyperlipemia E78.5 AAA (abdominal aortic aneurysm) I71.40 Chest pain I25.9 Chest pain type: chest pain due to myocardial ischemia Ischemic chest pain type: unspecified angina pectoris type ST elevation myocardial infarction (STEMI) I21.19 Involved coronary artery: other inferior wall coronary artery
--- NOTE | 2023-07-24 02:29 | PC.NURSE ---
Dr Baird was notified of patient cardiac rhythm changes, as well as change in symptoms, such as patient now presenting with chest pain versus pressure, diaphoresis, nausea, and anxiety.
--- NOTE | 2023-07-24 02:31 | PC.NURSE ---
Dr Baird notified that patient had vomited initial administration of Plavix. Patient was given another dose as documented in MAR.
[2023-07-24] MEDS: nitroglycerin 0.4 mg sublingual Tablet 0.400000000000000022 MG SUBLINGUAL (03:19)
[2023-07-24] MEDS: sodium chloride 0.9% 1,000 ML 100 ML IV ×2 (03:34→16:22)
--- NOTE | 2023-07-24 03:35 | PM.MISC ---
Miscellaneous Note Note: I received a call from the nurse in the ICU just a few minutes ago telling me the patient had the recurrence of chest pain. EKG revealed the recurrence of her ST elevation in leads II, III and aVF. It appears she is clotted the stent. We will take her back to the catheterization laboratory for repeat angiography and possible repeat intervention.
[2023-07-24] MEDS: heparin 5,000 unit/mL INJ 1 mL 5000 UNIT IVP (03:41)
--- NOTE | 2023-07-24 03:51 | XACV_ITS ---
Exam Room: [facility] Ht: 160 cm Wt: 66 kg BSA: 1.72 m2 Gender: Female : 1945 Exam Priority: Routine Procedure(s): Procedure Description: Diagnostic procedure Procedure Description: PCI procedure Procedure Description: Drug Eluting Coronary Stent Procedure Description: PTCA Procedure Description: Miscellaneous Procedure Description: ACT Procedure Description: Coronary Angiography Johanne PIERCE; Diagnostic Cath Status: Emergency Diagnostic Findings * Patient was taken to the Ophthalmic Technologist just a couple hours ago for an acute inferior wall TX. The right coronary artery was stented with a good result. About 30 minutes after arriving in the ICU she had the recurrence of chest pain and recurrent ST elevation. She was brought back to the lab. * Right coronary artery was occluded at the beginning of the stent. That was stent thrombosis. PCI Status: Emergency PCI LVEF Assessed: No PCI Indication: STEMI - Immediate PCI for STEMI Interventional Findings * A wire was placed and the vessel opened with a 3.5 mm balloon. There was a significant amount of residual thrombus. Several balloon inflations were performed. At the distal end of the stent there appeared to be a filling defect. I was concerned about a edge dissection there. Because of the uncertainty and the fact that it is near the acute margin I placed another stent, a 3.5 x 8 mm stent at the distal end of the original stent. There appeared to be some downstream embolization. I used intracoronary Aggrastat along with an Aggrastat drip, gave her more heparin and also used approximately 1800 mcg of nicardipine. By the end of the procedure there was excellent flow without any significant evidence of residual thrombus. Decision for PCI with Surgical Consult: No PCI for Multi-vessel Disease: No Conclusions 1. Acute stent thrombosis treated with balloon angioplasty and an additional stent at the distal edge of the original stent. Recommendations * Medical treatment for now. Interventional RX Recommendation: PCI w/o planned CABG Diagnostic RX Recommendation: PCI w/o planned CABG Anticoagulation: Heparin, Tirofiban Pressures Phase:Rest AO : 136 / 69 ( 94 ) @ 5:07:00 AM 102 / 65 ( 83 ) @ 5:14:00 AM 119 / 58 ( 84 ) @ 5:19:00 AM 114 / 66 ( 87 ) @ 5:26:00 AM 102 / 55 ( 74 ) @ 5:38:00 AM Clinical Evaluation EBL: 5mL-10mL Procedural Details Pre-Procedure Time Out. Identified patient by full name and date of as verbalized by the patient/guarantor. Does the consent match the physician's order: N/A Emergent. Accurate & Complete Informed Consent: N/A Emergent. Inpatient/Outpatient History & Physical on Chart: N/A Emergent. If H&P is completed, is and addenduem needed: N/A Emergent; If yes, is the addendum complete: N/A Emergent. Visualize and Verify Site with Patient/Guarantor: N/A. Relevant Radiology Images available: N/A. Pre-op teaching completed and patient verbalized understanding. The risks, benefits, and alternatives of sedation and/or procedure were discussed by physician. The patient agrees to continue. Procedure started. Ophthalmic Technologist Indications: Worsening Angina. Cardiovascular Instability: Yes, if yes, Persistant Ischemic Symptoms. Chest Pain Symptom Assessment: Typical Angina Symptoms. Correct patient, site and procedure confirmed by cath team. Current diagnosis: Chest Pain. PERRLA. 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 Lungs clear x 5 lobes. IV Site on Arrival: 18 gauge in the right anticubital. IV Fluids: 0.9% NaCl at KVO. 200 mL infused prior to labor relations manager. Oxygen started at 2liters/min via nasal canula. right groin was prepped with chloroprep then draped in the usual sterile fashion. Physician notified. Baseline sample Acquired. HR: 48 BPM. Physician arrived. Physician scrubbed in. Immediate Pre-Procedure Time Out. Correct Patient: Yes; Correct Procedure: Yes; Correct Site: Yes; Correct Patient Position: Yes; Correct Supplies: Yes; Dried Flammable Prep: Yes; Blood Products Available: N/A;. Lidocaine 1% infiltrated to the right groin. 6 brazilian JR 4 guide catheter was inserted over the wire. Cine run performed of RCA. [place] guidewire was advanced through the guide catheter to lesion in the mid RCA. Balloon inserted to lesion in the mid RCA. Inflation number : 1 A AB TREK 3.50X25 RX BALLOON was prepped and advanced across the Mid RCA , then inflated to 8 JANIS for 0:30 seconds. Results checked. Inflation number: 2 The AB TREK 3.50X25 RX BALLOON was reinflated across the Mid RCA, to 10 JANIS for 0:26 seconds. Balloon out. Results checked. ACT drawn. Results out of range high. Therapeutic limits - pre-heparin administration 90-150 seconds and monitoring heparin during a vascular procedure >250 seconds. Results checked. Stent inserted to lesion in the mid RCA. Inflation Number : 3 A HAWK [place] AJ 3.5X8 LUDY -Lot Number# [id number] Exp 11/26/2025 was prepped and advanced across the Mid RCA. The stent was deployed at 12 JANIS for 0:26 seconds. Results checked. Stent balloon out over wire. Wire out. Results checked. Guide catheter out. A Suture was successful obtaining hemostatsis at the Right Femoral artery insertion site. Sheath(s) sutured into position with 2-0 silk and sterile 4x4's and Op-site applied over the site. No oozing or signs and symptoms of hematoma noted. Post-op diagnosis: Stent Thrombosis. Post Procedure: Pulses reassessed and unchanged. PERRLA. 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 No VTE prophylaxis required. Medication's Wasted: Lidocaine 1% = 13 mL. Medication's Wasted: Heparin = 1000 u. Medication's Wasted: Other = fentanyl 50 mcg. Total IV fluids: 40 mL. Complications: none. Estimated blood loss: 5mL-10mL. Responsiveness - Normal response to verbal stimuli; alert and oriented, PERRLA. Airway - Unaffected, no intervention required; spontaneous ventilation. Circulation: W/N/L, pulses unchanged. Nausea/Vomiting: No. Procedure completed. Patient transferred by bed to ICU. Vital chart was stopped. Access Site Site: Right Femoral artery Sheath Size: 6 Fr Hemostasis Method: Suture Hemostasis Success: Successful Procedure Medications Start: 4:07 AM Stop: 4:07 AM Medication: Versed Amount: 1 mg Route: I.V. Start: 4:07 AM Stop: 4:07 AM Medication: Fentanyl Amount: 50 mcg Route: I.V. Start: 4:12 AM Stop: 4:12 AM Medication: Aggrastat 12.5 mg/250 mL Amount: 11.9 ml/hr Route: I.V. drip Start: 4:16 AM Stop: 4:16 AM Medication: Aggrastat 12.5 mg/250 mL Amount: 33 ml Route: I.C. Start: 4:23 AM Stop: 4:23 AM Medication: Cardene Amount: 200 mcg Route: I.C. Start: 4:25 AM Stop: 4:25 AM Medication: Cardene Amount: 200 mcg Route: I.C. Start: 4:28 AM Stop: 4:28 AM Medication: Cardene Amount: 200 mcg Route: I.C. Start: 4:30 AM Stop: 4:30 AM Medication: Cardene Amount: 200 mcg Route: I.C. Start: 4:31 AM Stop: 4:31 AM Medication: Cardene Amount: 200 mcg Route: I.C. Start: 4:32 AM Stop: 4:32 AM Medication: Cardene Amount: 200 mcg Route: I.C. Start: 4:35 AM Stop: 4:35 AM Medication: Versed Amount: 1 mg Route: I.V. Start: 4:37 AM Stop: 4:37 AM Medication: Cardene Amount: 200 mcg Route: I.C. Start: 4:38 AM Stop: 4:38 AM Medication: Cardene Amount: 200 mcg Route: I.C. Start: 4:39 AM Stop: 4:39 AM Medication: Cardene Amount: 200 mcg Route: I.C. I, the attending physician, have reviewed and verified all procedure medications. Yes, all medications given per verbal order Report Signatures Finalized by Dr. Deon Whiting MD on 07/24/2023 04:58 AM
--- NOTE | 2023-07-24 04:03 | PC.NURSE ---
Admission/Return to lab support service tech 0258 -- Received patient from lab support service tech via bed. Placed on media monitor, SR with no ST elevation noted and no reports of chest pain. Awake, Alert, and Oriented x 4. Respirations even and unlabored with no reports of shortness of breath. 0306 -- Slight ST elevation noted on media monitor, no reports of chest pain by patient. V/S remain stable. 0310 -- Increased ST elevation noted on media monitor, patient reports slight chest pain. 0318 -- 12 lead EKG done, notified Dr. Whiting of ST elevation on media monitor and patients chest pain. After EKG reviewed, order given to get patient ready to go back to lab support service tech. Updated patient and friend at bedside. Continues to have pain in medial chest and medical upper back. 0325 -- Dr. Whiting to bedside, talked with patient and friend, EKG reviewed. 0341 -- 5000 units of heparin IVP given per Dr. Whiting orders. 0356 -- laboratory supervisor team to room, patient transported to lab support service tech via bed.
--- NOTE | 2023-07-24 05:05 | ECG_ITS ---
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 Measurements Intervals [place] Rate: 56 P: 166 GA: 143 QRS: 103 QRSD: 108 T: 66 QT: 454 QTc: 441 Interpretive Statements SINUS BRADYCARDIA ARM LEADS REVERSED [INVERTED P AND QRS IN I] MARKED ST ELEVATION, CONSIDER INFERIOR INJURY [MARKED ST ELEVATION W/O NORMALLY INFLECTED T-WAVE IN II/aVF] ACUTE VT Compared to ECG 07/24/2023 01:14:37 ST (T wave) deviation now present Myocardial infarct finding now present T-wave abnormality no longer present Electronically Signed On 07-24-2023 12:35:36 CDT by Freddie Fuentes M.D. [id number]
--- NOTE | 2023-07-24 05:10 | PC.NURSE ---
Return from catheter builder 0500 -- Return from catheter builder to ICU 5 via bed. Connected to destination imagination coordinator, ST elevations remain with no reports of chest pain or shortness of breath. Dr. Whiting to bedside and spoke with family.
[2023-07-24 06:04] LABS: Troponin 5 6HR 701.6 ng/L (0-10); Troponin 5 6HR Delta 604.6 ng/L (0-12)
[2023-07-24 06:21] LABS: Partial Thromboplastin Time > 250.0 SECONDS (23.9-36.7)
--- NOTE | 2023-07-24 07:31 | PM.MISC ---
Miscellaneous Note Note: After the second angiography and intervention the patient is doing well. She remains free of discomfort. There is still some residual ST segment elevation on the monitor. I suspect this is related to downstream embolization. There is no evidence that she has rethrombosed the stent at this time. We will continue with routine postprocedure care.
[2023-07-24] MEDS: aspirin 81 mg EC Tablet PO (09:09)
[2023-07-24] MEDS: predniSONE 10 mg Tablet PO (09:09)
[2023-07-24] MEDS: clopidogrel 75 mg Tablet PO (09:10)
[2023-07-24 09:34] LABS: Partial Thromboplastin Time 113.8 SECONDS (23.9-36.7)
--- NOTE | 2023-07-24 09:47 | PC.SOCIAL ---
IMM Update pg 2 of IMM updated and reviewed w/ patient. Copy provided and copy dated, initialed and placed in chart.
--- NOTE | 2023-07-24 11:38 | PM.MISC ---
Miscellaneous Note Note: I have seen the patient after second angiogram Patient is chest pain free Awake and alert Laying supine Hemodynamically stable Pleasant cooperative S1, S2 Hemodynamic stable currently on room air Patient to continue aspirin and Plavix dual antiplatelet therapy Continue IV fluid hydration because patient has received contrast for the angiogram Antihypertensive regimen on hold secondary to low blood pressure Patient takes bisoprolol hydrochlorothiazide combination Will add metoprolol succinate once blood pressure allows Avoid ibuprofen
[2023-07-24 12:06] LABS: Partial Thromboplastin Time 23.1 SECONDS (23.9-36.7)
[2023-07-24] MEDS: fentaNYL 50 mcg/mL INJ 2mL IVP (12:54)
--- NOTE | 2023-07-24 13:30 | PC.NURSE ---
Sheath removed from the right groin. Pressure held for approx 20 minutes. site dressed with 4x4 and microfoam tape. will closely monitor.
[2023-07-24] MEDS: diazePAM 5 mg Tablet PO (20:15)
[2023-07-25] VITALS (11 sets, daily range): BP systolic 89–113; BP diastolic 43–59; PULSE 58–79; RESP 13–20; TEMP 36.1; O2SAT 85–93
[2023-07-25] MEDS: sodium chloride 0.9% 1,000 ML 100 ML IV (03:10)
--- NOTE | 2023-07-25 06:51 | PM.DCS ---
Discharge Providers Date of Admission: 07/24/23 02:53 Date of Discharge: July 25, 2023 Attending Provider at Admission: Deon Whiting MD Attending Provider at Discharge: shabbir Primary Care Provider: Nathan Patten MD Diagnoses at Discharge Discharge Diagnosis (1) Hypertension: Status: Acute (2) Hyperlipemia: Status: Acute (3) AAA (abdominal aortic aneurysm): Status: Acute (4) Chest pain: Status: Acute Qualifiers: Chest pain type: chest pain due to myocardial ischemia Ischemic chest pain type: unspecified angina pectoris type Qualified Code(s): I25.9 - Chronic ischemic heart disease, unspecified (5) ST elevation myocardial infarction (STEMI): Status: Acute Qualifiers: Involved coronary artery: other inferior wall coronary artery Qualified Code(s): I21.19 - ST elevation (STEMI) myocardial infarction involving other coronary artery of inferior wall Reason for Visit Reason for Visit: Chest Pains Brief History: Patient presented to the hospital with chest pain. The pain was typical for angina. Her first 2 EK[address] did not show ST elevation but did show ST segment depression. Her first troponin was elevated. Her third EKG showed ST segment elevation inferiorly and reciprocal ST depression in the anterior precordial leads. I saw her in the emergency room and prepared her for coronary angiography. Just prior to taking her from the emergency room her blood pressure dropped to 54 mmHg systolic. She was resuscitated with normal saline. Hospital Course Hospital Course By the time we got her to the catheterization laboratory her ST segments were improving suggesting that the artery had recanalized and opened to some degree. This was indeed the case when we performed angiography. I chose to enter via the groin initially given the hypotension. I was unable to feel her radial pulse when her blood pressure was 54 mmHg. The right coronary artery had a large thrombus burden in the midportion but was open with some trickle of flow beyond the thrombus. This area was primarily stented with a 3.5 x 26 mm stent. The flow was excellent and her blood pressure came up. The bradycardia resolved. Her left system did not show any significant lesions. Left ventriculography revealed an ejection fraction of about 40% with akinesis of the inferior base and mid inferior wall About 30 minutes after arriving in the ICU she had the sudden onset of recurrent chest pain and ST segment elevation. This suggested stent thrombosis. I took her back to the catheterization laboratory immediately and indeed there was stent thrombosis and the artery was occluded. I opened the artery with a balloon, placed an Aggrastat bolus into the artery itself, started an intravenous Aggrastat drip and used nicardipine intracoronary. Subsequent views of the right coronary artery suggested that there may be a edge dissection at the very end of the original stent. I could not confirm this visually but it was suggested. I chose to place another stent just at the end of the original stent. This made the angiographic appearance of an edge dissection disappear. Patient was sent back to the ICU on an Aggrastat drip. She did well for the remainder of the hospitalization. There was no further recurrence of chest pain, ST segment changes or other problems. No bradycardia no heart block. No hypotension. The groin sheath was removed several hours later without complication. There has been no hematoma or other bleeding anomalies in the leg. She will be sent home today. She has been informed about the 2 new medications, Plavix and atorvastatin. Her other medicines will remain the same. She has been instructed not to lift anything more than 10 pounds for 2 days and to gradually increase her activity. She will be seen in a week to 10 days by the nurse practitioner and 3 months after that by one of the cardiologists in the office. Her CBC was unremarkable. Electrolytes, BUN and creatinine are normal. Her troponin peaked at 701. BNP was 604. Physical Exam Narrative: GENERAL: In general she looks and feels well HEENT: Exam within normal limits. NECK: Supple without jugular vein distention. The carotid upstroke is normal without bruits. BACK: Exam normal. LUNGS: Clear. HEART: Regular rate and rhythm. ABDOMEN: Benign without organomegaly or tenderness. EXTREMITIES: No edema. Right lower extremity entry site is flat, dry without bleeding or hematoma NEUROLOGIC: Exam normal. SKIN: Unremarkable. Discharge Data Studies Completed and Pending Completed Studies During Hospitalization Category Date Time Status BUILDING MAINTENANCE SUPERINTENDENT request for service Routine Exams 07/24/23 03:51 Completed BUILDING MAINTENANCE SUPERINTENDENT request for service Stat Exams 07/24/23 02:06 Completed XR chest 1V portable [id number] Stat Exams 07/23/23 23:05 Completed Pending at discharge Category Date Time Status Basic Metabolic Panel AM LABS Lab 07/25/23 04:00 Ordered Complete Blood Count w/Auto AM LABS Lab 07/25/23 04:00 Ordered Radiology Impressions Chest X-Ray 07/23/23 23:05 IMPRESSION: No acute cardiopulmonary process. Laboratory Results WBC 7.13 10^3/uL (3.29-11.43) 07/23/23 23:08 RBC 5.02 10^6/uL (3.85-5.65) 07/23/23 23:08 Hgb 14.50 g/dL (11.27-16.99) 07/23/23 23:08 Hct 43.4 % (36-47) 07/23/23 23:08 MCV 86.5 fl (85-98) 07/23/23 23:08 MCH 28.9 pg (27-33) 07/23/23 23:08 MCHC 33.4 g/dL (30-55) 07/23/23 23:08 RDW 12.8 % (12.1-15.1) 07/23/23 23:08 Plt Count 215 10^3/cmm (157-399) 07/23/23 23:08 MPV 9.9 fL (7.4-10.4) 07/23/23 23:08 Neut % (Auto) 53.4 % 07/23/23 23:08 Lymph % (Auto) 33.7 % 07/23/23 23:08 Bureau % (Auto) 8.6 % 07/23/23 23:08 Eos % (Auto) 3.4 % 07/23/23 23:08 Baso % (Auto) 0.6 % 07/23/23 23:08 Neut # (Auto) 3.82 10^3/uL (1.8-7.7) 07/23/23 23:08 Lymph # (Auto) 2.4 10^3/uL (0.8-4.8) 07/23/23 23:08 Bureau # (Auto) 0.6 10^3/uL (0.2-0.9) 07/23/23 23:08 Eos # (Auto) 0.2 10^3/uL (0.0-0.8) 07/23/23 23:08 Baso # (Auto) 0.0 10^3/uL (0.0-0.1) 07/23/23 23:08 Nucleated RBC % (auto) 0 % 07/23/23 23:08 Nucleated RBCs # 0.0 /100WBC 07/23/23 23:08 APTT 23.1 SECONDS (23.9-36.7) L D 07/24/23 11:42 Sodium 138 mmol/L (136-145) 07/23/23 23:08 Potassium 3.7 mmol/L (3.5-5.1) 07/23/23 23:08 Chloride 101 mmol/L (98-107) 07/23/23 23:08 Carbon Dioxide 26 mmol/L (22-29) 07/23/23 23:08 Anion Gap 14.7 (5-19) 07/23/23 23:08 BUN 15 mg/dL (8-23) 07/23/23 23:08 Creatinine 0.9 mg/dL (0.5-0.9) 07/23/23 23:08 GFR Calculation Not Reportable 07/23/23 23:08 Glucose 111 mg/dL (65-115) 07/23/23 23:08 Calculated Osmolality 288 mOsm/kg (285-295) 07/23/23 23:08 Calcium 9.8 mg/dL (8.5-10.5) 07/23/23 23:08 Total Bilirubin 0.5 mg/dL (0.15-1.2) 07/23/23 23:08 AST 35 U/L (0-32) H 07/23/23 23:08 ALT 17 U/L (0-33) 07/23/23 23:08 Alkaline Phosphatase 65 U/L (35-105) 07/23/23 23:08 Troponin T Baseline 97 ng/L (0-10) H 07/23/23 23:08 Troponin T 120 Minute 122.8 ng/L (0-10) H 07/24/23 01:02 Delta Troponin T 25.8 ABS# (0-10) H* 07/24/23 01:02 Troponin T Hi Sens 6Hr 701.6 ng/L (0-10) H 07/24/23 05:23 Troponin T Hi Sens 6Hr Delta 604.6 ng/L (0-12) H* 07/24/23 05:23 NT-Pro-B Natriuret Pep 360 pg/mL (0-450) 07/23/23 23:08 Total Protein 7.1 g/dL (6.6-8.7) 07/23/23 23:08 Albumin 4.0 g/dL (3.5-5.2) 07/23/23 23:08 Globulin 3.1 g/dL (1.3-4.6) 07/23/23 23:08 Lipase 27 U/L (13-60) 07/23/23 23:08 Urine Color Yellow (Yellow) 07/24/23 00:34 Urine Appearance Clear (CLEAR) 07/24/23 00:34 Urine pH 6 (5-7) 07/24/23 00:34 Ur Specific [place] 1.010 (1.005-1.030) 07/24/23 00:34 Urine Protein Neg (Negative) 07/24/23 00:34 Urine Glucose (UA) Norm (Normal) 07/24/23 00:34 Urine Ketones Negative (Negative) 07/24/23 00:34 Urine Blood Neg (Negative) 07/24/23 00:34 Urine Nitrate Negative (Negative) 07/24/23 00:34 Urine Bilirubin Neg (Negative) 07/24/23 00:34 Urine Urobilinogen Neg mg/dL (Negative) 07/24/23 00:34 Ur Leukocyte Esterase Negative (Negative) 07/24/23 00:34 Procedures Performed Left heart catheterization, coronary angiography, left ventriculography, angioplasty and stent to the right coronary artery x 2 Vitals Last Vital Signs Temp 97.9 F 07/24/23 18:00 Pulse 79 07/25/23 06:00 Resp 13 07/25/23 06:00 BP 98/50 07/25/23 06:00 Pulse Ox 92 07/25/23 06:00 O2 Del Method Room Air 07/24/23 19:00 O2 Flow Rate 2 07/24/23 13:00 Discharge Plan Discharge Patient Disposition: Home Condition: Stable Prescriptions: New clopidogrel 75 mg Tablet 75 mg PO DAILY Qty: 90 0RF atorvastatin 40 mg tablet 40 mg PO DAILY Qty: 90 4RF Continued (DME) Custom Molded Orthotics See Rx Instructions .Route .MEDSUPPLY Qty: 1 0RF Rx Instructions: As directed bisoprolol-hydrochlorothiazide 5-6.25 mg tablet 1 tab PO QAM Qty: 90 3RF Prozac 20 mg capsule 20 mg PO DAILY@18 Qty: 30 5RF albuterol sulfate 90 mcg/actuation HFA aerosol inhaler 2 puff INHALATION Q4H PRN (Reason: Shortness Of Breath) Qty: 8.5 1RF diazepam 5 mg tablet 5 mg PO .COMPLEX PRN (Reason: anxiety) Qty: 40 2RF Rx Instructions: Take 2.5 - 5 MG at bedtime and as needed for panic attacks. fexofenadine [Gracie Allergy] 180 mg Tablet 180 mg PO DAILY PRN (Reason: ALLERGIES) acetaminophen [Tylenol Ex Str Rapid Release] 500 mg Tablet 500 mg PO Q6H PRN (Reason: Pain) nitroglycerin [Nitrostat] 0.4 mg Tablet, Sublingual 0.4 mg SUBLINGUAL Q5M PRN (Reason: Chest Pain) Rx Instructions: do not exceed 3 doses per episode cholecalciferol (vitamin D3) [Vitamin D3] 50 mcg (2,000 unit) Capsule 50 mcg PO .TWICE A WEEK aspirin 81 mg tablet,delayed release (DR/EC) 81 mg PO DAILY Qty: 30 0RF ondansetron 4 mg tablet,disintegrating 4 mg PO Q6H PRN (Reason: nausea and vomiting) Qty: 14 0RF ibuprofen 200 mg Tablet 600 mg PO Q6H PRN (Reason: Pain) Discharge Orders: Discharge Order (Routine); Ordered 07/25/23 Ordered By: Deon Whiting Referrals: Zee Martins FNP [Nurse Practitioner] - 7-10 days (Check right groin, chemistry panel.) Nathan Patten MD [Primary Care Provider] - Discharge Diet: Usual diet Discharge Activity: Increase activity as tolerated and Limit activity as instructed Patient Instructions: Opioid Safety Activity Restrictions/Additional Instructions: No lifting over 10 pounds for 2 days. Gradually increase activity level over 2 weeks. Discharge Attestations Time Spent in Discharge Care*: greater than 30 min Quality Metrics Clinical Quality Measures [ Acute Myocardial Infaction { Clinical Trial Participant: No; Contraindication to aspirin: None; Aspirin prescribed; Contraindication to statin: None; Statin prescribed; Contraindication to PCI: None; PCI performed;}] Coding Level of Care Code 36253 Total time (in minutes) for Discharge: 45 Diagnoses Hypertension I10 Hyperlipemia E78.5 AAA (abdominal aortic aneurysm) I71.40 Chest pain I25.9 Chest pain type: chest pain due to myocardial ischemia Ischemic chest pain type: unspecified angina pectoris type ST elevation myocardial infarction (STEMI) I21.19 Involved coronary artery: other inferior wall coronary artery
[2023-07-25 08:30] LABS: Basophils % 0.3 %; Eosinophils # 0.1 10^3/uL (0.0-0.8); Eosinophils % 1.2 %; Hematocrit 37.4 % (36-47); Lymphocytes # 1.4 10^3/uL (0.8-4.8); Lymphocytes % 18.4 %; Mean Corpuscular HGB Conc 30.7 g/dL (30-55); Mean Corpuscular Hemoglobin 29.8 pg (27-33); Mean Corpuscular Volume 96.9 fl (85-98); Mean Platelet Volume 10.2 fL (7.4-10.4); Monocytes # 0.8 10^3/uL (0.2-0.9); Monocytes % 10.5 %; Neutrophils # 5.41 10^3/uL (1.8-7.7); Neutrophils % 69.3 %; Nucleated Red Blood Cells % 0 %; Platelet Count 155 10^3/cmm (157-399); Red Blood Count 3.86 10^6/uL (3.85-5.65); Red Cell Distribution Width 13.4 % (12.1-15.1); White Blood Count 7.79 10^3/uL (3.29-11.43)
[2023-07-25] MEDS: aspirin 81 mg EC Tablet PO (08:36)
[2023-07-25] MEDS: clopidogrel 75 mg Tablet PO (08:36)
[2023-07-25] MEDS: predniSONE 10 mg Tablet PO (08:36)
[2023-07-25 08:54] LABS: Anion Gap 13.8 (5-19); Blood Urea Nitrogen 9 mg/dL (8-23); Calcium 8.9 mg/dL (8.5-10.5); Carbon Dioxide 24 mmol/L (22-29); Chloride 107 mmol/L (98-107); Creatinine Clr Calc Pharmacy 56.7847; Glucose 95 mg/dL (65-115); Osmolality Calculated 290 mOsm/kg (285-295); Potassium 3.8 mmol/L (3.5-5.1); Sodium 141 mmol/L (136-145)
== END 2023-07-25 09:00 | disposition home or self-care (01) | DRG 322 ==
LOC: ER 07-24 01:46 → CCL 07-24 02:12 → ICU 07-24 02:53
PROVIDERS: Nurse Practitioner Family; Admitting Provider Internal Medicine Cardiovascular Disease; Emergency Provider Emergency Medicine; PCP Family Medicine; Visit Provider Internal Medicine
PROC: 027035Z Dilation of Coronary Artery, One Artery with Two Drug-eluting Intraluminal Devices, Percutaneous Approach (ICD-10-PCS; principal; 2023-07-24 02:15)
PROC: 027035Z Dilation of Coronary Artery, One Artery with Two Drug-eluting Intraluminal Devices, Percutaneous Approach (ICD-10-PCS; 2023-07-24 02:15)
DX: I21.11 ST elevation (STEMI) myocardial infarction involving right coronary artery (principal); T82.867A Thrombosis due to cardiac prosthetic devices, implants and grafts, initial encounter; F33.9 Major depressive disorder, recurrent, unspecified; Y71.8 Miscellaneous cardiovascular devices associated with adverse incidents, not elsewhere classified; I10 Essential (primary) hypertension; F41.0 Panic disorder [episodic paroxysmal anxiety]; E78.5 Hyperlipidemia, unspecified; K21.9 Gastro-esophageal reflux disease without esophagitis; R00.1 Bradycardia, unspecified; I71.40 Abdominal aortic aneurysm, without rupture, unspecified; I25.10 Atherosclerotic heart disease of native coronary artery without angina pectoris; Z87.440 Personal history of urinary (tract) infections
CPT/HCPCS: 36415; 71045; 80048; 80053; 81003; 83690; 83880; 84484; 85025; 85347; 85730; 93005; 93458; 96374; 96375; 96376; 99152; 99153; 99285; C1725; C1769; C1874; C1887; C1894; C9600; J1644; J2250; J2270; J2405; J3010; J3535; J7030; J7512; Q9967

== ENCOUNTER → 2023-08-03 15:00 | Outpatient (BNVA) | payer MEDICARE, SELFPAY | PROVIDERS: PCP Family Medicine; Visit Provider Family Medicine | DX: I21.19 ST elevation (STEMI) myocardial infarction involving other coronary artery of inferior wall (principal); I25.10 Atherosclerotic heart disease of native coronary artery without angina pectoris | CPT/HCPCS: 80048; 85025 ==

== ENCOUNTER 2023-08-08 19:44 | Observation (INO) | payer MEDICARE, SELFPAY ==
[2023-08-08] VITALS (18 sets, daily range): BP systolic 107–153; BP diastolic 48–90; PULSE 63–74; RESP 11–19; TEMP 36.7; O2SAT 91–98; BMI 24.7
--- NOTE | 2023-08-08 19:49 | ECG_ITS ---
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 Measurements Intervals [place] Rate: 70 P: 3 PA: 174 QRS: -50 QRSD: 72 T: -73 QT: 435 QTc: 472 Interpretive Statements SINUS RHYTHM INFERIOR MYOCARDIAL INFARCTION , OF INDETERMINATE AGE [40+ ms Q WAVE AND/OR ST/T ABNORMALITY IN II/aVF] ANTEROLATERAL MYOCARDIAL INFARCTION , OF INDETERMINATE AGE [40+ ms Q WAVE IN I/aVL/V3-V6] Compared to ECG 07/24/2023 03:18:03 Sinus bradycardia no longer present ST (T wave) deviation no longer present Myocardial infarct finding still present Electronically Signed On 08-08-2023 21:31:16 CDT by Freddie Fuentes M.D. [id number]
--- NOTE | 2023-08-08 20:01 | XRR_ITS ---
PROCEDURE INFORMATION: Exam: XR Chest Exam date and time: 08/08/2023 8:22 PM Age: 77 years old Clinical indication: Chest pressure; Prior surgery; Surgery date: 6+ months; Patient HX: Chest pain; HX cardiac stents TECHNIQUE: Imaging protocol: Radiologic exam of the chest. Views: 1 view. COMPARISON: CR (CHEST, ) 07/23/2023 11:15 PM FINDINGS: Lungs: Stable left discoid atelectasis and/or scarring. Pleural spaces: Unremarkable. No pleural effusion. No pneumothorax. Heart/Mediastinum: Unremarkable. No cardiomegaly. Bones/joints: Dextroscoliosis. XR/XR chest 1V portable [id number] IMPRESSION: No acute findings.
[2023-08-08 20:15] LABS: Basophils % 0.4 %; Eosinophils # 0.2 10^3/uL (0.0-0.8); Eosinophils % 2.1 %; Hematocrit 39.8 % (36-47); Lymphocytes # 1.6 10^3/uL (0.8-4.8); Lymphocytes % 22.2 %; Mean Corpuscular HGB Conc 33.2 g/dL (30-55); Mean Corpuscular Hemoglobin 29.3 pg (27-33); Mean Corpuscular Volume 88.4 fl (85-98); Mean Platelet Volume 10.4 fL (7.4-10.4); Monocytes # 0.6 10^3/uL (0.2-0.9); Monocytes % 8.9 %; Neutrophils # 4.76 10^3/uL (1.8-7.7); Neutrophils % 66.1 %; Nucleated Red Blood Cells % 0 %; Platelet Count 275 10^3/cmm (157-399); Red Cell Distribution Width 13.1 % (12.1-15.1)
[2023-08-08 20:41] LABS: Alanine Aminotransferase 16 U/L (0-33); Albumin Level 4.2 g/dL (3.5-5.2); Alkaline Phosphatase 70 U/L (35-105); Anion Gap 13.5 (5-19); Aspartate Amino Transferase 30 U/L (0-32); Blood Urea Nitrogen 16 mg/dL (8-23); Calcium 9.8 mg/dL (8.5-10.5); Carbon Dioxide 24 mmol/L (22-29); Chloride 105 mmol/L (98-107); Creatinine Clr Calc Pharmacy 54.5222; Globulin 3.3 g/dL (1.3-4.6); Glucose 151 mg/dL (65-115); NT Pro B Type Natriuretic Pept 3004 pg/mL (0-450); Osmolality Calculated 292 mOsm/kg (285-295); Potassium 3.5 mmol/L (3.5-5.1); Sodium 139 mmol/L (136-145); Total Bilirubin 0.3 mg/dL (0.15-1.2); Total Protein 7.5 g/dL (6.6-8.7)
[2023-08-08] MEDS: ondansetron 2 mg/ML SDV 2 mL 4 MG IVP (20:41)
[2023-08-08] MEDS: morphine 4 mg/mL SDV 1 mL 2 MG IVP (20:41)
--- NOTE | 2023-08-08 20:45 | ED_ITS ---
HPI - Chest Pain 2 General: Chief Complaint: Chest Pain Stated Complaint: has heart stints/doesnt feel right Time Seen by Provider: 08/08/23 20:01 History of Present Illness: 77-year-old female who had an right zoya nary stent on 07/23. She had to be taken back to the [facility] because she had in-stent stenosis at the head of the stent later that night. She notes that yesterday she had done very well, she was feeling improved. However, she woke at 5 AM with discomfort to the left side of her chest radiating into the top of her left shoulder. She is not overly short of breath. She says that the pain is not bad, but has been persistent. No vomiting. She feels mildly generally weak today compared to yesterday. Associated symptoms: Deny abdominal pain, fever(s), nausea, palpitations or vomiting Review of Systems 2 Const: Denies: fever(s), chills or body aches Eyes: Denies: change in vision Card: Denies: palpitations Resp: Denies: productive cough, non-productive cough or wheezing GI: Denies: abdominal pain, nausea, vomiting, diarrhea or hematochezia : Denies: difficulty voiding Skin/Breast: Denies: rash Neuro: Denies: headache(s), weakness in extremities, dizziness or confusion PFSH ED 2 PFSH: Medical History AAA (abdominal aortic aneurysm) Panic disorder [episodic paroxysmal anxiety] Psychiatric care Major depressive disorder, recurrent, mild Uterine fibroid Recurrent urinary tract infection Hyperlipemia Diverticulosis Gastroesophageal reflux disease Depression Hypertension Surgical History History of colonoscopy 2004 History of esophagogastroduodenoscopy (EGD) 2004 History of dilation and curettage History of mandibular surgery TMJ surgery S/P tonsillectomy and adenoidectomy Family History Grandfather Colon cancer maternal Mother , Age 62 from brain cancer. Hypercholesteremia Hypertension Father , Age 39 due to blood clot after heart valve replacement No problems noted. Social History Smoking and tobacco/nicotine status: never used tobacco/nicotine Alcohol intake: current Alcohol intake frequency: holidays/special occasions only Substance/Drug Use: never Physical Exam 2 Const: COMMON NORMALS: no acute distress GENERAL APPEARANCE: cooperative; not ill appearing and not frail appearing HENMT: COMMON NORMALS: normocephalic, atraumatic and Normal external nose present HEAD & SCALP: normocephalic and atraumatic FACE & SINUS: normal facial exam and face symmetric NOSE: Normal external nose present Eye: COMMON NORMALS: Equal, round and reactive pupils present and EOMs intact bilaterally PUPIL: Yes Equal, round and reactive pupils present Neck/C-Spine: GENERAL: Yes trachea midline Chest: CHEST: Yes Symmetrical chest wall rise Resp: COMMON NORMALS: normal respiratory effort, No retractions, No use of accessory muscles and clear to auscultation bilaterally AUSCULTATION: clear to auscultation bilaterally Cardio: COMMON NORMALS: regular rate and regular rhythm RATE: regular rate RHYTHM: regular rhythm GI: COMMON NORMALS: Normal to inspection, nondistended, normoactive bowel sounds present Extremity: COMMON NORMALS: no pedal edema Neuro: WICHO COMA SCALE: document GCS findings Purlear coma scale eye opening: Spontaneous Purlear coma scale verbal response: Orientated Purlear coma scale motor response: Obey commands Purlear coma scale total score: 15 S ENSORY EXAM: Yes extremities (intact) Psych: COMMON NORMALS: speech normal SPEECH: Yes normal speech Skin: COMMON NORMALS: no rashes or lesions noted GENERAL SKIN EXAM: no rashes or lesions noted Course 2 Vital Signs: Vital signs: Vital Signs Temperature 98.1 F 08/08/23 19:58 Pulse Rate 72 08/08/23 19:58 Respiratory Rate 15 08/08/23 20:41 Blood Pressure 130/64 08/08/23 19:58 Pulse Oximetry 98 08/08/23 19:58 Oxygen Delivery Me thod Room Air 08/08/23 19:58 MDM - Chest Pain Medical Decision Making The patient's EKG shows Q waves in 2 3 aVF with significant T wave inversion. No ST depression or elevation. She has Q waves and T wave inversion laterally in the precordial leads as well. Rate is 60, axis is left. [place] interval is normal. QRS interval is normal. QTc is borderline. BMP is not remarkable. Troponin is 46 and 48 to at 0 and 2 hours respectively. Chest x-ray is nonacute. BNP is elevated at 3000. The patient's EKG findings while post OK would be expected to be different than prior, are still concerning. Her pressure, which is gone now after morphine is concerning as well. Spoke with cardiology. Will observe. Will keep on the monitor. Will check 6-hour troponin. Perform limited echo tomorrow. She will be n.p.o. after midnight in case cath is needed. Spoke with hospitalist. She agrees to admit. Lab Data 08/08/23 20:08 08/08/23 20:08 Radiology Impressions Chest X-Ray 08/08/23 20:01 IMPRESSION: No acute findings. Laboratory Results WBC 7.20 10^3/uL (3.29-11.43) 08/08/23 20:08 RBC 4.50 10^6/uL (3.85-5.65) 08/08/23 20:08 Hgb 13.20 g/dL (11.27-16.99) 08/08/23 20:08 Hct 39.8 % (36-47) 08/08/23 20:08 MCV 88.4 fl (85-98) 08/08/23 20:08 MCH 29.3 pg (27-33) 08/08/23 20:08 MCHC 33.2 g/dL (30-55) 08/08/23 20:08 RDW 13.1 % (12.1-15.1) 08/08/23 20:08 Plt Count 275 10^3/cmm (157-399) 08/08/23 20:08 MPV 10.4 fL (7.4-10.4) 08/08/23 20:08 Neut % (Auto) 66.1 % 08/08/23 20:08 Lymph % (Auto) 22.2 % 08/08/23 20:08 Dane % (Auto) 8.9 % 08/08/23 20:08 Eos % (Auto) 2.1 % 08/08/23 20:08 Baso % (Auto) 0.4 % 08/08/23 20:08 Neut # (Auto) 4.76 10^3/uL (1.8-7.7) 08/08/23 20:08 Lymph # (Auto) 1.6 10^3/uL (0.8-4.8) 08/08/23 20:08 Dane # (Auto) 0.6 10^3/uL (0.2-0.9) 08/08/23 20:08 Eos # (Auto) 0.2 10^3/uL (0.0-0.8) 08/08/23 20:08 Baso # (Auto) 0.0 10^3/uL (0.0-0.1) 08/08/23 20:08 Nucleated RBC % (auto) 0 % 08/08/23 20:08 Nucleated RBCs # 0.0 /100WBC 08/08/23 20:08 Sodium 139 mmol/L (136-145) 08/08/23 20:08 Potassium 3.5 mmol/L (3.5-5.1) 08/08/23 20:08 Chloride 105 mmol/L (98-107) 08/08/23 20:08 Carbon Dioxide 24 mmol/L (22-29) 08/08/23 20:08 Anion Gap 13.5 (5-19) 08/08/23 20:08 BUN 16 mg/dL (8-23) 08/08/23 20:08 Creatinine 0.8 mg/dL (0.5-0.9) 08/08/23 20:08 GFR Calculation Not Reportable 08/08/23 20:08 Glucose 151 mg/dL (65-115) H 08/08/23 20:08 Calculated Osmolality 292 mOsm/kg (285-295) 08/08/23 20:08 Calcium 9.8 mg/dL (8.5-10.5) 08/08/23 20:08 Total Bilirubin 0.3 mg/dL (0.15-1.2) 08/08/23 20:08 AST 30 U/L (0-32) 08/08/23 20:08 ALT 16 U/L (0-33) 08/08/23 20:08 Alkaline Phosphatase 70 U/L (35-105) 08/08/23 20:08 Troponin T Baseline 46 ng/L (0-10) H 08/08/23 20:08 Troponin T 120 Minute 41.95 ng/L (0-10) H 08/08/23 21:49 Delta Troponin T -4.05 ABS# (0-10) L 08/08/23 21:49 NT-Pro-B Natriuret Pep 3004 pg/mL (0-450) H 08/08/23 20:08 Total Protein 7.5 g/dL (6.6-8.7) 08/08/23 20:08 Albumin 4.2 g/dL (3.5-5.2) 08/08/23 20:08 Globulin 3.3 g/dL (1.3-4.6) 08/08/23 20:08 Urine Color Yellow (Yellow) 08/08/23 21:26 Urine Appearance Clear (CLEAR) 08/08/23 21:26 Urine pH 7 (5-7) 08/08/23 21:26 Ur Specific [place] 1.000 (1.005-1.030) L 08/08/23 21:26 Urine Protein Neg (Negative) 08/08/23 21:26 Urine Glucose (UA) Norm (Normal) 08/08/23 21:26 Urine Ketones Negative (Negative) 08/08/23 21:26 Urine Blood Neg (Negative) 08/08/23 21:26 Urine Nitrate Negative (Negative) 08/08/23 21:26 Urine Bilirubin Neg (Negative) 08/08/23 21:26 Urine Urobilinogen Neg mg/dL (Negative) 08/08/23 21:26 Ur Leukocyte Esterase Negative (Negative) 08/08/23 21:26 All radiology interpretation(s) finalized by discharge Discharge Plan Discharge Patient Disposition: Placed in Observation Clinical Impression: Chest pain Condition: Stable Prescriptions: No Action (DME) Custom Molded Orthotics See Rx Instructions .Route .MEDSUPPLY Qty: 1 0RF Rx Instructions: As directed bisoprolol-hydrochlorothiazide 5-6.25 mg tablet 1 tab PO QAM Qty: 90 3RF Prozac 20 mg capsule 20 mg PO DAILY@18 Qty: 30 5RF nitroglycerin [Nitrostat] 0.4 mg tablet, sublingual 0.4 mg SUBLINGUAL Q5M PRN (Reason: Chest Pain) Qty: 30 5RF Rx Instructions: do not exceed 3 doses per episode albuterol sulfate 90 mcg/actuation HFA aerosol inhaler 2 puff INHALATION Q4H PRN (Reason: Shortness Of Breath) Qty: 8.5 1RF diazepam 5 mg tablet 5 mg PO .COMPLEX PRN (Reason: anxiety) Qty: 40 2RF Rx Instructions: Take 2.5 - 5 MG at bedtime and as needed for panic attacks. fexofenadine [Gracie Allergy] 180 mg Tablet 180 mg PO DAILY PRN (Reason: ALLERGIES) acetaminophen 500 mg Tablet 500 mg PO Q6H PRN (Reason: Pain) cholecalciferol (vitamin D3) [Vitamin D3] 50 mcg (2,000 unit) Capsule 50 mcg PO .TWICE A WEEK aspirin 81 mg tablet,delayed release (DR/EC) 81 mg PO DAILY Qty: 30 0RF ondansetron 4 mg tablet,disintegrating 4 mg PO Q6H PRN (Reason: nausea and vomiting) Qty: 14 0RF ibuprofen 200 mg Tablet 600 mg PO Q6H PRN (Reason: Pain) atorvastatin 40 mg tablet 40 mg PO DAILY Qty: 90 4RF clopidogrel 75 mg Tablet 75 mg PO DAILY Qty: 90 0RF Referrals: Nathan Patten MD [Primary Care Provider] - Coding Level of Care Code ED [employer] for Alberto Roa
[2023-08-08 20:53] LABS: Troponin(5th) Baseline 46 ng/L (0-10)
[2023-08-08 21:35] LABS: Add Urine Microscopic? NO; Charge for UA Resulting for Rev
[2023-08-08 21:36] LABS: Bilirubin Urine Neg (Negative); Blood Urine Neg (Negative); Glucose Urine UA Norm (Normal); Ketones Urine Negative (Negative); Leukocyte Esterase Urine Negative (Negative); Nitrate Urine Negative (Negative); Protein Urine Neg (Negative); Urine Appearance Clear (CLEAR); Urine Color Yellow (Yellow); Urobilinogen Urine Neg (Negative); pH Urine 7 (5-7)
--- NOTE | 2023-08-08 21:52 | ECG_ITS ---
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 Measurements Intervals [place] Rate: 59 P: 1 VT: 171 QRS: -48 QRSD: 84 T: -83 QT: 468 QTc: 464 Interpretive Statements SINUS BRADYCARDIA LEFT ANTERIOR FASCICULAR BLOCK [QRS AXIS <= -45, QR IN I, RS IN II] INFERIOR MYOCARDIAL INFARCTION , OF INDETERMINATE AGE [40+ ms Q WAVE AND/OR ST/T ABNORMALITY IN II/aVF] ANTEROLATERAL MYOCARDIAL INFARCTION , OF INDETERMINATE AGE [40+ ms Q WAVE IN I/aVL/V3-V6] Compared to ECG 08/08/2023 19:49:41 Left anterior fascicular block now present Sinus rhythm no longer present Myocardial infarct finding still present Electronically Signed On 08-09-2023 15:28:19 CDT by Freddie Fuentes M.D. [id number]
[2023-08-08 22:14] LABS: Troponin 5 2HR 41.95 ng/L (0-10)
[2023-08-08 22:15] LABS: Troponin 5 2HR Delta -4.05 ABS# (0-10)
[2023-08-09] VITALS (14 sets, daily range): BP systolic 94–124; BP diastolic 49–68; PULSE 60–126; RESP 11–19; TEMP 36.4–36.8; O2SAT 91–98
--- NOTE | 2023-08-09 02:00 | P.HP_ITS ---
Providers/Chief Complaint 2 Admitting Physician: Esperanza Alcantar MD Primary Care Provider: Nathan Patten MD Chief Complaint: has heart stints/doesnt feel right/some chest pain History of Present Illness Evelin Venegas is a 77 year old female with history of hypertension, recently admitted here between July 23 to July 25, 2023 with chest pain. She was diagnosed with STEMI and received stents to the RCA. Left ventriculography revealed an ejection fraction of 40% with akinesia of the inferior wall. Postprocedure course was complicated by stent thrombosis for which she needed to return to the [facility] and subsequently underwent angioplasty and placement of a second stent at the edge of the first. She has remained on aspirin and Plavix atorvastatin and antihypertensives since then. She has been feeling well since discharge except last night when she developed chest pain. States that the pain initially woke her up at around 3 AM, was located in the midsternal region radiating into the left arm. There was no apparent aggravating factor. Pain was relieved but then started again at around 6 AM. She has continued to have intermittent chest pain during the course of the day without any apparent trigger. In the evening she noted her systolic blood pressure to be 160 and presented to the emergency room. States that she feels generalized sense of unwell when she has a chest pain but denies any specific symptoms of diaphoresis shortness of breath nausea or vomiting. Review of Systems 2 General: Reports: 10 or more systems reviewed and unremarkable except in HPI and below Const: Denies: fever(s), chills or body aches Eyes: Denies: change in vision, blurry vision or photophobia ENMT: Reports: hoarseness; Denies: throat pain, enlarged tonsils, odynophagia or nasal congestion Card: Denies: chest pain, palpitations, irregular heart rhythm, edema, swelling of feet/ankles, lightheadedness, pre-syncope, dyspnea on exertion or orthopnea Resp: Denies: dyspnea, productive cough, non-productive cough, wheezing, stridor, pain on inspiration, change in phlegm color, hemoptysis or chest congestion GI: Denies: abdominal pain, nausea, vomiting, hematemesis, coffee ground emesis, dysphagia, heartburn, diarrhea, constipation, GI cramping, change in stool character, hematochezia or melena : Denies: flank pain, difficulty voiding, dysuria, urinary frequency, urinary urgency, urinary hesitancy or hematuria Musc: Denies: neck pain, back pain, extremity pain, joint swelling, joint warmth or deformity Neuro: Denies: headache(s), numbness in extremities, weakness in extremities, sensory changes, difficulty walking, frequent falls, dizziness, vertigo, behavioral changes, Slurred speech present or seizure-like activity Psych: Denies: anxiety, depression, suicidal ideation or homicidal ideation Endo: Denies: polyuria, polydipsia, tired all the time, cold intolerance or hot flashes Arturo/Lymph: Denies: easy bruising or easy bleeding Medications/Allergies Home Medications Medication Instructions Recorded Confirmed Last Taken Type Custom Molded Orthotics #1 ea 08/09/20 08/03/23 Unknown Rx acetaminophen 500 mg tablet 500 mg PO Q6H PRN Pain 07/25/21 08/03/23 07/23/23 History aspirin 81 mg tablet,delayed 81 mg PO DAILY #30 tabs 07/25/21 08/03/23 Unknown Rx release cholecalciferol (vitamin D3) 50 50 mcg PO .TWICE A WEEK 07/25/21 08/03/23 Unknown History mcg (2,000 unit) capsule (Vitamin D3) fexofenadine 180 mg tablet 180 mg PO DAILY PRN ALLERGIES 07/25/21 08/03/23 Unknown History (Gracie Allergy) bisoprolol 5 1 tab PO QAM #90 tabs 08/21/22 08/03/23 07/23/23 Rx mg-hydrochlorothiazide 6.25 mg tablet ondansetron 4 mg disintegrating 4 mg PO Q6H PRN nausea and 03/13/23 08/03/23 Unknown Rx tablet vomiting #14 tabs albuterol sulfate 90 mcg/actuation 2 puff inhalation Q4H PRN 05/01/23 08/03/23 Unknown Rx aerosol inhaler Shortness Of Breath #8.5 grams fluoxetine 20 mg capsule (Prozac) 20 mg PO DAILY@18 #30 caps 05/28/23 08/03/23 07/22/23 Rx diazepam 5 mg tablet 5 mg PO .COMPLEX PRN anxiety #40 07/01/23 08/03/23 07/22/23 Rx tabs ibuprofen 200 mg tablet 600 mg PO Q6H PRN Pain 07/24/23 08/03/23 07/23/23 History atorvastatin 40 mg tablet 40 mg PO DAILY #90 tabs 07/25/23 08/03/23 Unknown Rx clopidogrel 75 mg tablet 75 mg PO DAILY #90 tabs 07/25/23 08/03/23 Unknown Rx nitroglycerin 0.4 mg sublingual 0.4 mg sublingual Q5M PRN Chest 08/03/23 08/03/23 Unknown Rx tablet (Nitrostat) Pain #30 tabs Allergies Allergy/AdvReac Type Severity Reaction Status Date / Time epinephrine Allergy increased Verified 08/08/23 20:01 heart rate erythromycin base Allergy upset Verified 08/08/23 20:01 stomach lactase [From Dairy Aid] Allergy lactosintol Verified 08/08/23 20:01 erate sulfamethizole Allergy not Verified 08/08/23 20:01 effective Sulfonylureas Allergy not Verified 08/08/23 20:01 effective trimethoprim Allergy uneffective Verified 08/08/23 20:01 PFSH Acute 2 PFSH: Medical History AAA (abdominal aortic aneurysm) Panic disorder [episodic paroxysmal anxiety] Psychiatric care Major depressive disorder, recurrent, mild Uterine fibroid Recurrent urinary tract infection Hyperlipemia Diverticulosis Gastroesophageal reflux disease Depression Hypertension Surgical History History of colonoscopy 2004 History of esophagogastroduodenoscopy (EGD) 2004 History of dilation and curettage History of mandibular surgery TMJ surgery S/P tonsillectomy and adenoidectomy Family History Grandfather Colon cancer maternal Mother , Age 62 from brain cancer. Hypercholesteremia Hypertension Father , Age 39 due to blood clot after heart valve replacement No problems noted. Social History Smoking and tobacco/nicotine status: never used tobacco/nicotine Alcohol intake: current Alcohol intake frequency: holidays/special occasions only Substance/Drug Use: never Vitals/I&O/Wt Last Vital Signs Temp 97.7 F 08/09/23 04:04 Pulse 67 08/09/23 04:04 Resp 16 08/09/23 04:04 BP 121/57 08/09/23 04:04 Pulse Ox 97 08/09/23 04:04 O2 Del Method Room Air 08/09/23 01:18 Weight last 48 hrs Weight 63.503 kg Physical Exam 2 Narrative: General: No acute distress, AO x3 HEENT: PERRLA, pupils bilaterally equal and reactive, pallors not present Chest: Normal vesicular breath sounds, no added sounds, equal good air entry bilaterally CVS: S1-S2 regular, no murmurs, no tachycardia, no gallops, no rubs Abdomen: Soft, nontender, no organomegaly, bowel sounds present Neuro: No focal deficits, no facial deformity, AO x3, power 5/5 in all limbs Data 08/08/23 20:08 08/08/23 20:08 A&P Assessment and plan (1) Chest pain: 77-year-old lady with recent STEMI 2 weeks ago for which she received send to the [facility], postprocedure course complicated by stent stenosis for which she required angioplasty subsequently. Presents today with intermittent chest pain going on throughout the day on August 08, 2023. EKG today shows marked ST depression in leads II, III, aVF, V4 through V6. 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 Troponin series today with baseline at 46, 2-hour troponin at 41, ending 6-hour trend. Elevated BNP, however clinically she is euvolemic. Saturating 97% on room air currently, low probability of PE. Given recent significant cardiac event and complications of stent stenosis, abnormal EKG, would admit patient to [facility] observation for cardiology assessment Check echocardiogram Continue aspirin, Plavix, atorvastatin Patient reports that her blood pressure at home was up to 160 systolic. Currently she is normotensive Plan DVT prophylaxis: SCDs, overall low risk Full code Attestations 2 Medical Necessity Statement*: Less than 2 midnight stay is currently anticipated Coding Level of Care Code Acute Code for Chg Fwd Moderate MDM includes number and complexity of problems actively addressed during encounter, amount and/or complexity of data reviewed/ordered and described risk of complication, morbidity or mortality of management as documented Diagnoses Chest pain R07.9
[2023-08-09 02:52] LABS: Troponin 5 6HR 46.03 ng/L (0-10); Troponin 5 6HR Delta 0.03 ng/L (0-12)
--- NOTE | 2023-08-09 04:17 | ECG_ITS ---
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 Measurements Intervals [place] Rate: 61 P: 22 NC: 186 QRS: -38 QRSD: 83 T: -82 QT: 493 QTc: 499 Interpretive Statements SINUS RHYTHM LEFT AXIS DEVIATION [QRS AXIS < -30] ANTEROLATERAL MYOCARDIAL INFARCTION , OF INDETERMINATE AGE [40+ ms Q WAVE IN I/aVL/V3-V6] MODERATE T-WAVE ABNORMALITY, CONSIDER INFERIOR ISCHEMIA [-0.1+ mV T-WAVE IN II/aVF] Compared to ECG 08/08/2023 21:52:59 Left-axis deviation now present T-wave abnormality now present Possible ischemia now present Sinus bradycardia no longer present Left anterior fascicular block no longer present Myocardial infarct finding still present Electronically Signed On 08-09-2023 15:25:42 CDT by Freddie Fuentes M.D. [id number]
--- NOTE | 2023-08-09 07:29 | P.CONIM_ITS ---
Providers/Reason For Consult 2 Consulting Physician/Specialty*: Freddie Fuentes MD/ Cardiology Reason for Consult*: Chest pain Requesting Physician: Dr Monsivais Attending Physician: Billy Griffiths MD Primary Care Provider: Nathan Patten MD History of Present Illness History of Present Illness Evelin Venegas is a 77 year old female with past medical history of recent STEMI with 2 stents placed in RCA presented to hospital with 1 day following of chest pain. According to patient she felt substernal chest discomfort radiating to the left arm. Multiple episodes. EKG shows diffuse ST depressions and T wave inversions. Troponin mildly elevated however has not trended up significantly. Says for last 2 days is not feeling well and having excessive fatigue with chest pain. Review of Systems 2 Const: Denies: fever(s), chills or body aches Eyes: Denies: change in vision Card: Reports: chest pain; Denies: palpitations Resp: Denies: productive cough, non-productive cough or wheezing GI: Denies: abdominal pain, nausea, vomiting, diarrhea or hematochezia : Denies: difficulty voiding Skin/Breast: Denies: rash Neuro: Denies: headache(s), weakness in extremities, dizziness or confusion Medications/Allergies Home Medications Medication Instructions Recorded Confirmed Last Taken Type Custom Molded Orthotics #1 ea 08/09/20 08/03/23 Unknown Rx acetaminophen 500 mg tablet 500 mg PO Q6H PRN Pain 07/25/21 08/03/23 07/23/23 History aspirin 81 mg tablet,delayed 81 mg PO DAILY #30 tabs 07/25/21 08/03/23 Unknown Rx release cholecalciferol (vitamin D3) 50 50 mcg PO .TWICE A WEEK 07/25/21 08/03/23 Unknown History mcg (2,000 unit) capsule (Vitamin D3) fexofenadine 180 mg tablet 180 mg PO DAILY PRN ALLERGIES 07/25/21 08/03/23 Unknown History (Gracie Allergy) bisoprolol 5 1 tab PO QAM #90 tabs 08/21/22 08/03/23 07/23/23 Rx mg-hydrochlorothiazide 6.25 mg tablet ondansetron 4 mg disintegrating 4 mg PO Q6H PRN nausea and 03/13/23 08/03/23 Unknown Rx tablet vomiting #14 tabs albuterol sulfate 90 mcg/actuation 2 puff inhalation Q4H PRN 05/01/23 08/03/23 Unknown Rx aerosol inhaler Shortness Of Breath #8.5 grams fluoxetine 20 mg capsule (Prozac) 20 mg PO DAILY@18 #30 caps 05/28/23 08/03/23 07/22/23 Rx diazepam 5 mg tablet 5 mg PO .COMPLEX PRN anxiety #40 07/01/23 08/03/23 07/22/23 Rx tabs ibuprofen 200 mg tablet 600 mg PO Q6H PRN Pain 07/24/23 08/03/23 07/23/23 History atorvastatin 40 mg tablet 40 mg PO DAILY #90 tabs 07/25/23 08/03/23 Unknown Rx clopidogrel 75 mg tablet 75 mg PO DAILY #90 tabs 07/25/23 08/03/23 Unknown Rx nitroglycerin 0.4 mg sublingual 0.4 mg sublingual Q5M PRN Chest 08/03/23 08/03/23 Unknown Rx tablet (Nitrostat) Pain #30 tabs Allergies Allergy/AdvReac Type Severity Reaction Status Date / Time epinephrine Allergy increased Verified 08/08/23 20:01 heart rate erythromycin base Allergy upset Verified 08/08/23 20:01 stomach lactase [From Dairy Aid] Allergy lactosintol Verified 08/08/23 20:01 erate sulfamethizole Allergy not Verified 08/08/23 20:01 effective Sulfonylureas Allergy not Verified 08/08/23 20:01 effective trimethoprim Allergy uneffective Verified 08/08/23 20:01 PFSH Acute 2 PFSH: Medical History AAA (abdominal aortic aneurysm) Panic disorder [episodic paroxysmal anxiety] Psychiatric care Major depressive disorder, recurrent, mild Uterine fibroid Recurrent urinary tract infection Hyperlipemia Diverticulosis Gastroesophageal reflux disease Depression Hypertension Surgical History History of colonoscopy 2004 History of esophagogastroduodenoscopy (EGD) 2004 History of dilation and curettage History of mandibular surgery TMJ surgery S/P tonsillectomy and adenoidectomy Family History Grandfather Colon cancer maternal Mother , Age 62 from brain cancer. Hypercholesteremia Hypertension Father , Age 39 due to blood clot after heart valve replacement No problems noted. Social History Smoking and tobacco/nicotine status: never used tobacco/nicotine Alcohol intake: current Alcohol intake frequency: holidays/special occasions only Substance/Drug Use: never Vitals/I&O/Wt Last Vital Signs Temp 97.7 F 08/09/23 04:04 Pulse 95 08/09/23 06:00 Resp 16 08/09/23 04:04 BP 121/57 08/09/23 04:04 Pulse Ox 97 08/09/23 04:04 O2 Del Method Room Air 08/09/23 01:18 Weight last 48 hrs Weight 140 lb Physical Exam 2 Narrative: GENERAL: Patient is alert, awake and oriented x3. [] NECK: No jugular vein distension. [] HEENT: No cyanosis. No icterus. No pallor. [] HEART: Regular S1 and S2. No murmur, rub or gallop. [] LUNGS: Clear to auscultate bilaterally. [] CENTRAL NERVOUS SYSTEM: Grossly nonfocal. [] EXTREMITIES: Lower extremities with 1+ edema bilaterally. Data 08/09/23 11:30 08/09/23 02:25 A&P Assessment and plan (1) Chest pain: (2) Coronary artery disease: (3) Hyperlipemia: (4) Hypertension: Plan Patient had recent inferior wall ST elevation LA and underwent successful revascularization of RCA with 1 stent. This was complicated with stent thrombosis leading to repeat procedure and placement of a second stent. She was doing well about 2 days ago when started to feel excessive fatigue and on and off chest pain. She describes typical symptoms of substernal chest pressure going to the left arm. EKG shows diffuse ST depressions and T wave inversions. There is could be evolving change from prior LA. However given significant symptoms described by patient, we will proceed with coronary angiogram and rule out any issues with coronary blood supply. NPO for now Limited echocardiogram ordered Thank you for involving us with care of this patient. We will continue to follow. Please call with questions. Consult Attestations 2 Medical Necessity Statement: Care expected to cross 2 midnights. Coding Level of Care Code Acute Code for [facility] Diagnoses Chest pain R07.9 Coronary artery disease I25.10 Hyperlipemia E78.5 Hypertension I10
--- NOTE | 2023-08-09 08:45 | XACV_ITS ---
Exam Room: 2 Ht: 160 cm Wt: 63 kg BSA: 1.69 m2 Gender: Female : 1945 Any Known Allergies: Other Exam Priority: Routine Procedure(s): Procedure Description: Diagnostic procedure Procedure Description: Left Heart Catheterization Procedure Description: Left ventriculography Procedure Description: Coronary Angiography Diagnostic Cath Status: Urgent Diagnostic Findings * Separate ostia for LAD and Left circumflex artery. No left main artery. * Circumflex has mild luminal irregularities. * Right Coronary Artery has patent prior stent. no significant stenosis. * LAD has diffuse mild luminal irregularities. * Coronary angiography shows right dominance. Conclusions 1. Patent prior recent stents. 2. Normal left ventricular systolic function. Ejection fraction of 50%. Recommendations * Aggressive risk factor modification. * Outpatient cardiology follow up in 2 weeks. Interventional RX Recommendation: medical therapy and/or counseling Diagnostic RX Recommendation: medical therapy and/or counseling Anticoagulation: Heparin Ventriculography Ejection Fraction: 50.0 % Pressures Phase:Rest AO : 100 / 85 ( 88 ) @ 10:58:00 AM 99 / 87 ( 87 ) @ 10:59:00 AM 96 / 73 ( 85 ) @ 11:01:00 AM 106 / 71 ( 89 ) @ 11:05:00 AM 130 / 60 ( 86 ) @ 11:05:00 AM LV : 123 / -2 / 14 @ 11:04:00 AM 128 / 6 / 22 @ 11:05:00 AM Valves Phase:DefaultPhase AV : 24.0 @ 10:11:20 AM 24.0 @ 10:11:20 AM AV Mean Gradient: 19.0 @ 10:11:20 AM Clinical Evaluation EBL: 5mL-10mL Procedural Details Procedure Consent Obtained. Pre-Procedure Time Out. Identified patient by full name and date of as verbalized by the patient/guarantor. Does the consent match the physician's order: Yes. Accurate & Complete Informed Consent: Yes. Inpatient/Outpatient History & Physical on Chart: Yes. If H&P is completed, is and addenduem needed: No; If yes, is the addendum complete: N/A. Visualize and Verify Site with Patient/Guarantor: N/A. Relevant Radiology Images available: Yes. Pre-op teaching completed and patient verbalized understanding. The risks, benefits, and alternatives of sedation and/or procedure were discussed by physician. The patient agrees to continue. Procedure started. Physician arrived. [facility] Clinical Fraility Score: 3: Managing Well. Relay Checker Indications: ACS > 24 hours. Chest Pain Symptom Assessment: Typical Angina Symptoms. Correct patient, site and procedure confirmed by cath team. Current diagnosis: NSTEMI. PERRLA. Strong, equal hand civil engineer land development bilaterally. Lungs clear x 5 lobes. IV Site on Arrival: 18 gauge in the left anticubital. IV Fluids: 0.9% NaCl at KVO. 0 mL infused prior to labeling machine operator. Oxygen started at 2liters/min via nasal canula. right groin was prepped with chloroprep then draped in the usual sterile fashion. right radial was prepped with chloroprep then draped in the usual sterile fashion. Baseline sample Acquired. HR: 63 BPM. Physician scrubbed in. Immediate Pre-Procedure Time Out. Correct Patient: Yes; Correct Procedure: Yes; Correct Site: Yes; Correct Patient Position: Yes; Correct Supplies: Yes; Dried Flammable Prep: Yes; Blood Products Available: N/A;. Lidocaine 1% infiltrated to the right radial. Arterial access obtained. A 5 lithuanian TIG catheter in over wire. Multiple views taken of right coronary artery. Catheter removed over the exchange wire. A 5 lithuanian JL3.5 catheter in over wire. Multiple views taken of left coronary artery. Catheter removed over the exchange wire. A 5 lithuanian Angled Pig catheter in over wire. EDP Sample taken: LV 123/-3,14; HR: 71 BPM; SpO2: 98%. LV gram performed in CIFUENTES @ 10 mL/second for a total of 30 mL. EDP Sample taken: LV 128/6,22; HR: 87 BPM; SpO2: 98%. Pullback taken: LV Off; AO 106/71(89); Mean: 19mmHg, Peak to Peak: 24mmHg, SEP: 34sec/min; HR: 131 BPM; SpO2: 98%. Catheter removed over the exchange wire. A TR Band was successful obtaining hemostatsis at the Right Radial artery insertion site. Vital chart was stopped. Post Procedure: Pulses reassessed and unchanged. PERRLA. Strong, equal hand civil engineer land development bilaterally. No VTE prophylaxis required. Medication's Wasted: Lidocaine 1% = 18 mL. Medication's Wasted: Nitro = 49.9 mcg. Medication's Wasted: Heparin = 2000 units. Total IV fluids: 250 mL. Complications: None. Estimated blood loss: 5mL-10mL. Responsiveness - Normal response to verbal stimuli; alert and oriented, PERRLA. Airway - Unaffected, no intervention required; spontaneous ventilation. Circulation: W/N/L, pulses unchanged. Nausea/Vomiting: No. Procedure completed. Patient transferred by bed to 1st floor. Access Site Site: Right Radial artery Sheath Size: 6 Fr Hemostasis Method: TR Band Hemostasis Success: Successful Procedure Medications Start: 9:41 AM Stop: 9:41 AM Medication: Versed Amount: 1 mg Route: I.V. Start: 9:41 AM Stop: 9:41 AM Medication: Fentanyl Amount: 50 mcg Route: I.V. Start: 9:49 AM Stop: 9:49 AM Medication: Versed Amount: 1 mg Route: I.V. Start: 9:49 AM Stop: 9:49 AM Medication: Fentanyl Amount: 50 mcg Route: I.V. Start: 9:51 AM Stop: 9:51 AM Medication: Nitrogylcerin Amount: 100 mcg Route: I.A. Start: 9:53 AM Stop: 9:53 AM Medication: Heparin Amount: 4000 units Route: I.V. Start: 9:57 AM Stop: 9:57 AM Medication: 0.9% Saline Amount: 250 ml Route: I.VMary ortega I, the attending physician, have reviewed and verified all procedure medications. Yes, all medications given per verbal order History/Risk Factors Hypertension: No Dyslipidemia: No Peripheral Arterial Disease (PAD): No Myocardial Infarction (SC): No Obesity: No Renal Disease: No Prior Interventions PCI: No CABG: No Valve Surgery: No Report Signatures Finalized by Freddie Fuentes MD on 08/09/2023 03:45 PM
[2023-08-09] MEDS: clopidogrel 75 mg Tablet PO (08:54)
[2023-08-09] MEDS: aspirin 81 mg EC Tablet PO (08:54)
--- NOTE | 2023-08-09 10:21 | ECG_ITS ---
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 Measurements Intervals [place] Rate: 63 P: 23 DE: 168 QRS: -40 QRSD: 85 T: -79 QT: 498 QTc: 511 Interpretive Statements SINUS RHYTHM POSSIBLE ANTERIOR MYOCARDIAL INFARCTION , OF INDETERMINATE AGE [30 ms Q WAVE IN V3/V4, OR R < 0.2 mV IN V4] INFERIOR MYOCARDIAL INFARCTION , OF INDETERMINATE AGE [40+ ms Q WAVE AND/OR ST/T ABNORMALITY IN II/aVF] MODERATE T-WAVE ABNORMALITY, CONSIDER LATERAL ISCHEMIA [-0.1+ mV T-WAVE IN I/aVL/V5/V6] Compared to ECG 08/09/2023 04:17:41 Left-axis deviation no longer present Myocardial infarct finding still present T-wave abnormality still present Possible ischemia still present Electronically Signed On 08-09-2023 15:25:28 CDT by Freddie Fuentes M.D. [email or web address]
[2023-08-09 11:05] LABS: Alanine Aminotransferase 15 U/L (0-33); Albumin Level 3.8 g/dL (3.5-5.2); Alkaline Phosphatase 61 U/L (35-105); Anion Gap 14.3 (5-19); Aspartate Amino Transferase 27 U/L (0-32); Blood Urea Nitrogen 14 mg/dL (8-23); Calcium 9.4 mg/dL (8.5-10.5); Carbon Dioxide 23 mmol/L (22-29); Chloride 107 mmol/L (98-107); Creatinine Clr Calc Pharmacy 54.5222; Globulin 2.8 g/dL (1.3-4.6); Glucose 88 mg/dL (65-115); Iron 54 ug/dL (37-145); Osmolality Calculated 292 mOsm/kg (285-295); Percent Saturation 23.7 % (20-50); Potassium 3.3 mmol/L (3.5-5.1); Sodium 141 mmol/L (136-145); Total Bilirubin 0.3 mg/dL (0.15-1.2); Total Iron Binding Capacity 227 mcg/dl; Total Protein 6.6 g/dL (6.6-8.7); Unsaturated Iron Binding 173 ug/dL (112-347); Vitamin B12 352 pg/mL (232-1245)
[2023-08-09 11:47] LABS: Basophils % 0.3 %; Eosinophils # 0.1 10^3/uL (0.0-0.8); Eosinophils % 1.6 %; Hematocrit 38.4 % (36-47); Lymphocytes # 1.2 10^3/uL (0.8-4.8); Mean Corpuscular HGB Conc 31.5 g/dL (30-55); Mean Corpuscular Hemoglobin 29.6 pg (27-33); Mean Corpuscular Volume 93.9 fl (85-98); Mean Platelet Volume 10.5 fL (7.4-10.4); Monocytes # 0.5 10^3/uL (0.2-0.9); Monocytes % 7.2 %; Neutrophils # 4.44 10^3/uL (1.8-7.7); Neutrophils % 71.6 %; Nucleated Red Blood Cells % 0 %; Platelet Count 214 10^3/cmm (157-399); Red Blood Count 4.09 10^6/uL (3.85-5.65); Red Cell Distribution Width 13.3 % (12.1-15.1); White Blood Count 6.21 10^3/uL (3.29-11.43)
[2023-08-09] MEDS: atorvastatin 40 mg Tablet PO (11:51)
[2023-08-09] MEDS: pantoprazole DR 40 mg Tablet PO (11:51)
[2023-08-09] MEDS: hydroCHLOROthiazide 25 mg Tablet 6.25 MG PO (11:52)
[2023-08-09] MEDS: potassium chloride ER 20 mEq Tablet 80 MEQ PO (11:52)
[2023-08-09 12:26] LABS: Estmated Average Glucose 105; Hemoglobin A1C 5.3 % (4.0-6.0)
--- NOTE | 2023-08-09 13:09 | USCV_ITS ---
[place] Evelin Age: 77 Gender: F : 1945 Exam Date: 08/09/2023 13:47 Ordering Phys: Billy Griffiths MD Technologist: Femi Wiggins Exam Location: Indication: chest pain BP: / HR: Rhythm: Sinus Technical Quality: Adequate MEASUREMENTS (Male / Female) Normal Values FINDINGS Left Ventricle Right Ventricle Right Atrium Left Atrium Mitral Valve Aortic Valve Tricuspid Valve Pulmonic Valve Pericardium Aorta IVC CONCLUSIONS Limited echocardiogram performed to assess LV systolic function LV systolic function is normal with EF of 55-60%. No regional wall motion abnormalities seen Freddie Fuentes MD (Electronically Signed) Final Date: 09 August 2023 21:52 S
--- NOTE | 2023-08-09 13:34 | W.PM.EVENTAC ---
Event Note Event Note: Admitted overnight. H&P and labs appreciated. Seen postcardiac angiogram. Found to have patent stent. Denies any fever or chest pain. Possible episode of atrial flutter during the procedure. No further episodes while on telemetry. Continue with aspirin, Plavix, statin, beta-darci. Check A1c, lipid panel. Hold off on anticoagulation for now. Patient would benefit from event monitor as an outpatient for further evaluation and possible recurrence of atrial flutter. CBC and CMP rechecked today. Found to have mild hypokalemia. Replace potassium. Event Notes Attestations Time Spent in Patient Care: 16 - 35 minutes
[2023-08-09] MEDS: fluoxetine 20 mg Capsule PO (17:11)
--- NOTE | 2023-08-09 18:23 | PC.NURSE ---
Shift Summary: Uneventful shift. Patient went for an angiogram this morning, no interventions. TR band removed without complications and tegaderm dressing in place. Patient has voided since angiogram. Per Dr chowdary, potential discharge tommorow with event monitor.
[2023-08-09] MEDS: diazePAM 5 mg Tablet PO (20:36)
[2023-08-10] VITALS: BP 111/64; PULSE 75; RESP 16; TEMP 36.7; O2SAT 95
[2023-08-10 04:00] VITALS: BP 103/68; PULSE 80; RESP 10; TEMP 37.1; O2SAT 96
[2023-08-10 05:54] LABS: Chol HDL Ratio 2.61 mg/dL (0.0-4.40); Cholesterol 120 mg/dL (0-200); HDL Cholesterol 46 mg/dL (60-100); LDL Cholesterol Calculated 49 mg/dL (50-129); Magnesium 1.8 mg/dL (1.7-2.3); Triglycerides 123 mg/dL (0-150); VLDL Cholestrol Calculation 25 mg/dL (0-30)
[2023-08-10 06:11] LABS: Folate Level 18.1 ng/mL (4.8-37.3)
[2023-08-10 07:24] VITALS: BP 132/54; PULSE 85; RESP 13; TEMP 36.6; O2SAT 95
[2023-08-10 08:00] VITALS: PULSE 89; RESP 16
--- NOTE | 2023-08-10 08:31 | PM.PN ---
Subjective Subjective: Patient had coronary angiogram yesterday that showed patent coronary arteries. No chest pain now. Vitals/I&O/Wt Last Vital Signs Temp 97.8 F 08/10/23 07:24 Pulse 85 08/10/23 07:24 Resp 13 08/10/23 07:24 BP 132/54 08/10/23 07:24 Pulse Ox 95 08/10/23 07:24 O2 Del Method Room Air 08/10/23 07:24 08/09/23 08/10/23 08/10/23 22:59 06:59 14:59 Output Total 100 / 100 Balance -100 / 140 Weight last 48 hrs Weight 143 lb 9.6 oz Weight 140 lb Physical Exam Narrative: GENERAL: Patient is alert, awake and oriented x3. [] NECK: No jugular vein distension. [] HEENT: No cyanosis. No icterus. No pallor. [] HEART: Regular S1 and S2. No murmur, rub or gallop. [] LUNGS: Clear to auscultate bilaterally. [] CENTRAL NERVOUS SYSTEM: Grossly nonfocal. [] EXTREMITIES: Lower extremities with 1+ edema bilaterally. Data 08/09/23 11:30 08/09/23 02:25 A&P Assessment and plan (1) Chest pain: (2) Coronary artery disease: (3) Hyperlipemia: (4) Hypertension: Plan Coronary angiogram did not reveal significant stenosis. The stents are patent. Echo shows normal LV systolic function. She is symptom-free at this time. During the heart cath she have brief arrhythmia. Can be possible atrial flutter however there was significant artifact. Will recommend 30-day event monitor at time of discharge. Currently in normal sinus rhythm Thank you for involving us with care of this patient. Please call with questions. Attestations Medical Necessity Statement*: Care expected to cross 2 midnights. Coding Level of Care Code Acute Code for [facility] Diagnoses Chest pain R07.9 Coronary artery disease I25.10 Hyperlipemia E78.5 Hypertension I10
[2023-08-10] MEDS: pantoprazole DR 40 mg Tablet PO (08:43)
[2023-08-10] MEDS: clopidogrel 75 mg Tablet PO (08:43)
[2023-08-10] MEDS: hydroCHLOROthiazide 25 mg Tablet 6.25 MG PO (08:43)
[2023-08-10] MEDS: atorvastatin 40 mg Tablet PO (08:44)
[2023-08-10] MEDS: aspirin 81 mg EC Tablet PO (08:44)
[2023-08-10 09:01] VITALS: PULSE 89; RESP 16; O2SAT 96
--- NOTE | 2023-08-10 09:05 | PC.CHAP ---
Pastoral Care Encounter/Spiritual Assessment Type of Contact [] Declined family living educator visit [] Patient/Family/Request visit [] Outpatient visit [] Follow-up visit [] Physician referral [] Code/Alert [x] Routine visit [] Staff referral [] Actively dying [] Patient sleeping [x] Family support [] [] Out of room [] Palliative care [] [] Receiving care in room [] Pre-surgical visit [] Trauma [] Long length of stay [] ICU visit [] Other: Relational/Emotional Strength [] Patient feels connected with others/family/visitors/staff [] Distress [] Loneliness/isolation [] Abandonment Spirituality of Patient [x] Person of Deirdre [] Attends Hinduism of their Deirdre [x] Believes in Prayer [] Reads Bible or Voodoo materials [] There are Spiritual issues to be addressed Generating Plant Superintendent Interventions [x] Prayer [x Active listening [] Non-anxious presence [] Spiritual/emotional support [] Crisis/trauma care [] Spiritual counseling [] Bereavement support [] Provided bereavement packet [x] Provided Bible/devotional materials [] Provided toy/stuffed animal, coloring book to patient or family member [] Provided Communion [] Anointing/[place] [] Salvation [x Completed spiritual assessment [] Other: Impact on Illness or Injury [] Angry [] Fearful [] Anxious [] Often cries [] Exhaustion [] Unable to work [] Unable to attend muslim [] Unable to walk/stand [] Unable to read [] Unable to drive [] Unable to eat/drink [] Unable to sleep [] Unable to be with family [] Patient intubated [] Other: Summary Time spent with patient 10 min
--- NOTE | 2023-08-10 09:59 | PM.DCS ---
Discharge Providers Date of Admission: 08/09/23 01:12 Date of Discharge: August 10, 2023 Attending Provider at Admission: Esperanza Alcantar MD Attending Provider at Discharge: Cori Nash MD Primary Care Provider: Nathan Patten MD Diagnoses at Discharge Discharge Diagnosis (1) Chest pain: Status: Resolved (2) Coronary artery disease: Status: Acute (3) Hyperlipemia: Status: Acute (4) Hypertension: Status: Acute Reason for Visit Reason for Visit: has heart stints/doesnt feel right/some chest pain Hospital Course Hospital Course Patient presented to the hospital with chest pain who is status post recent STEMI 2 weeks ago and subsequently had stent restenosis. Angiogram was done which found her stent to be patent. She has chest pain-free doing well and will be sent home to follow-up with primary care and cardiology as an outpatient. Physical Exam Narrative: GENERAL: Patient is alert, awake and oriented x3. [] NECK: No jugular vein distension. [] HEENT: No cyanosis. No icterus. No pallor. [] HEART: Regular S1 and S2. No murmur, rub or gallop. [] LUNGS: Clear to auscultate bilaterally. [] CENTRAL NERVOUS SYSTEM: Grossly nonfocal. [] EXTREMITIES: Lower extremities with 1+ edema bilaterally. Discharge Data Studies Completed and Pending Completed Studies During Hospitalization Category Date Time Status PLUMBING [employer]ATING [employer]OR request for service Routine Exams 08/09/23 08:45 Completed XR chest 1V portable [id number] Stat Exams 08/08/23 20:01 Completed CV. echo limited 20600 Routine Ultrasound 08/09/23 13:09 Completed Pending at discharge Category Date Time Status CMP [Comprehensive Metabolic Panel] AM LABS Lab 08/11/23 04:00 Ordered Complete Blood Count w/Auto AM LABS Lab 08/11/23 04:00 Ordered MAG [Magnesium] AM LABS Lab 08/11/23 04:00 Ordered MAG [Magnesium] AM LABS Lab 08/12/23 04:00 Ordered Radiology Impressions Chest X-Ray 08/08/23 20:01 IMPRESSION: No acute findings. Laboratory Results WBC 6.21 10^3/uL (3.29-11.43) 08/09/23 11:30 RBC 4.09 10^6/uL (3.85-5.65) 08/09/23 11:30 Hgb 12.10 g/dL (11.27-16.99) 08/09/23 11:30 Hct 38.4 % (36-47) 08/09/23 11:30 MCV 93.9 fl (85-98) D 08/09/23 11:30 MCH 29.6 pg (27-33) 08/09/23 11:30 MCHC 31.5 g/dL (30-55) D 08/09/23 11:30 RDW 13.3 % (12.1-15.1) 08/09/23 11:30 Plt Count 214 10^3/cmm (157-399) 08/09/23 11:30 MPV 10.5 fL (7.4-10.4) H 08/09/23 11:30 Neut % (Auto) 71.6 % 08/09/23 11:30 Lymph % (Auto) 19.0 % 08/09/23 11:30 [place] % (Auto) 7.2 % 08/09/23 11:30 Eos % (Auto) 1.6 % 08/09/23 11:30 Baso % (Auto) 0.3 % 08/09/23 11:30 Neut # (Auto) 4.44 10^3/uL (1.8-7.7) 08/09/23 11:30 Lymph # (Auto) 1.2 10^3/uL (0.8-4.8) 08/09/23 11:30 [place] # (Auto) 0.5 10^3/uL (0.2-0.9) 08/09/23 11:30 Eos # (Auto) 0.1 10^3/uL (0.0-0.8) 08/09/23 11:30 Baso # (Auto) 0.0 10^3/uL (0.0-0.1) 08/09/23 11:30 Nucleated RBC % (auto) 0 % 08/09/23 11:30 Nucleated RBCs # 0.0 /100WBC 08/09/23 11:30 Sodium 141 mmol/L (136-145) 08/09/23 02:25 Potassium 3.3 mmol/L (3.5-5.1) L 08/09/23 02:25 Chloride 107 mmol/L (98-107) 08/09/23 02:25 Carbon Dioxide 23 mmol/L (22-29) 08/09/23 02:25 Anion Gap 14.3 (5-19) 08/09/23 02:25 BUN 14 mg/dL (8-23) 08/09/23 02:25 Creatinine 0.7 mg/dL (0.5-0.9) 08/09/23 02:25 GFR Calculation Not Reportable 08/09/23 02:25 Glucose 88 mg/dL (65-115) 08/09/23 02:25 Estimat Average Glucose 105 08/09/23 11:30 Hemoglobin A1c 5.3 % (4.0-6.0) 08/09/23 11:30 Calculated Osmolality 292 mOsm/kg (285-295) 08/09/23 02:25 Calcium 9.4 mg/dL (8.5-10.5) 08/09/23 02:25 Magnesium 1.8 mg/dL (1.7-2.3) 08/10/23 05:10 Iron 54 ug/dL (37-145) 08/09/23 02:25 TIBC 227 mcg/dl 08/09/23 02:25 % Saturation 23.7 % (20-50) 08/09/23 02:25 Unsat Iron Binding 173 ug/dL (112-347) 08/09/23 02:25 Total Bilirubin 0.3 mg/dL (0.15-1.2) 08/09/23 02:25 AST 27 U/L (0-32) 08/09/23 02:25 ALT 15 U/L (0-33) 08/09/23 02:25 Alkaline Phosphatase 61 U/L (35-105) 08/09/23 02:25 Troponin T Baseline 46 ng/L (0-10) H 08/08/23 20:08 Troponin T 120 Minute 41.95 ng/L (0-10) H 08/08/23 21:49 Delta Troponin T -4.05 ABS# (0-10) L 08/08/23 21:49 Troponin T Hi Sens 6Hr 46.03 ng/L (0-10) H 08/09/23 02:25 Troponin T Hi Sens 6Hr Delta 0.03 ng/L (0-12) 08/09/23 02:25 NT-Pro-B Natriuret Pep 3004 pg/mL (0-450) H 08/08/23 20:08 Total Protein 6.6 g/dL (6.6-8.7) 08/09/23 02:25 Albumin 3.8 g/dL (3.5-5.2) 08/09/23 02:25 Globulin 2.8 g/dL (1.3-4.6) 08/09/23 02:25 Triglycerides 123 mg/dL (0-150) 08/10/23 05:10 Cholesterol 120 mg/dL (0-200) 08/10/23 05:10 LDL Cholesterol, Calc 49 mg/dL (50-129) L 08/10/23 05:10 Total VLDL Cholesterol 25 mg/dL (0-30) 08/10/23 05:10 HDL Cholesterol 46 mg/dL (60-100) L 08/10/23 05:10 Cholesterol/HDL Ratio 2.61 mg/dL (0.0-4.40) 08/10/23 05:10 Vitamin B12 352 pg/mL (232-1245) 08/09/23 02:25 Folate 18.1 ng/mL (4.8-37.3) 08/10/23 05:10 TSH 2.40 uIU/mL (0.27-4.20) 08/09/23 02:25 Urine Color Yellow (Yellow) 08/08/23 21:26 Urine Appearance Clear (CLEAR) 08/08/23 21:26 Urine pH 7 (5-7) 08/08/23 21:26 Ur Specific [place] 1.000 (1.005-1.030) L 08/08/23 21:26 Urine Protein Neg (Negative) 08/08/23 21: Urine Glucose (UA) Norm (Normal) 08/08/23 21:26 Urine Ketones Negative (Negative) 08/08/23 21: Urine Blood Neg (Negative) 08/08/23 21: Urine Nitrate Negative (Negative) 08/08/23 21: Urine Bilirubin Neg (Negative) 08/08/23 21: Urine Urobilinogen Neg mg/dL (Negative) 08/08/23 21:26 Ur Leukocyte Esterase Negative (Negative) 08/08/23 21: Vitals Last Vital Signs Temp 97.8 F 08/10/23 07:24 Pulse 89 08/10/23 09:01 Resp 16 08/10/23 09:01 BP 132/54 08/10/23 07:24 Pulse Ox 96 08/10/23 09:01 O2 Del Method Room Air 08/10/23 09:01 Discharge Plan Discharge Patient Disposition: Home Condition: Stable Prescriptions: Continued (DME) Custom Molded Orthotics See Rx Instructions .Route .MEDSUPPLY Qty: 1 0RF Rx Instructions: As directed bisoprolol-hydrochlorothiazide 5-6.25 mg tablet 1 tab PO QAM Qty: 90 3RF Prozac 20 mg capsule 20 mg PO DAILY@18 Qty: 30 5RF nitroglycerin [Nitrostat] 0.4 mg tablet, sublingual 0.4 mg SUBLINGUAL Q5M PRN (Reason: Chest Pain) Qty: 30 5RF Rx Instructions: do not exceed 3 doses per episode albuterol sulfate 90 mcg/actuation HFA aerosol inhaler 2 puff INHALATION Q4H PRN (Reason: Shortness Of Breath) Qty: 8.5 1RF diazepam 5 mg tablet 5 mg PO .COMPLEX PRN (Reason: anxiety) Qty: 40 2RF Rx Instructions: Take 2.5 - 5 MG at bedtime and as needed for panic attacks. acetaminophen 500 mg Tablet 500 mg PO Q6H PRN (Reason: Pain) aspirin 81 mg tablet,delayed release (DR/EC) 81 mg PO DAILY Qty: 30 0RF ondansetron 4 mg tablet,disintegrating 4 mg PO Q6H PRN (Reason: nausea and vomiting) Qty: 14 0RF ibuprofen 200 mg Tablet 600 mg PO Q6H PRN (Reason: Pain) atorvastatin 40 mg tablet 40 mg PO DAILY Qty: 90 4RF clopidogrel 75 mg Tablet 75 mg PO DAILY Qty: 90 0RF No Action Zyrtec 10 mg Tablet 10 mg PO DAILY PRN (Reason: allergies) Women's Multivitamin 18 mg iron-400 mcg-500 mg Tablet 1 tab PO DAILY Discharge Orders: Discharge Order (Routine); Ordered 08/10/23 Ordered By: Cori Nash Referrals: Freddie Fuentes M.D [Physician] - 1 month (During your appointment with Zee Martins, you be scheduled for an follow-up with Dr. Fuentes. Thank you! ) Zee Martins FNP [Nurse Practitioner] - 08/25/23 2:00 pm (Also, you have an appointment tomorrow 08/10 @ 14:30p.m. for an 21 day event monitor to be placed. thank you! ) Nathan Patten MD [Primary Care Provider] - 08/17/23 2:30 am Discharge Diet: Cardiac Discharge Activity: Limit activity as instructed Patient Instructions: Coronary Artery Disease (DC), Heart Catheterization (DC), Chest Pain Stoplight, Opioid Safety, Post Angiogram Home Care Instructions Discharge Attestations Time Spent in Discharge Care*: greater than 30 min Quality Metrics Clinical Quality Measures [ No reported AMI, CVA or VTE this stay] Coding Level of Care Code Acute Code for [facility] Fwd Diagnoses Chest pain R07.9 Coronary artery disease I25.10 Hyperlipemia E78.5 Hypertension I10
[2023-08-10 10:35] VITALS: BP 132/54; PULSE 89; RESP 16; TEMP 36.6; O2SAT 96
--- NOTE | 2023-08-10 11:43 | PC.NURSE ---
Discharge Note Patient discharged to [home] via [w/c to POV] accompanied by [her friend]. Discharge instructions reviewed with patient and/or medical center representative. Mobile pharmacy medications and/or prescriptions provided. Belongings/home medications returned.
== END 2023-08-10 11:44 | disposition home or self-care (01) ==
LOC: ER 23:46 → CSU 08-09 01:13
PROVIDERS: Internal Medicine; Nurse Practitioner Family; Student in an Organized Health Care Education/Training Program; Admitting Provider Student in an Organized Health Care Education/Training Program; Emergency Provider Emergency Medicine; PCP Family Medicine; Visit Provider Internal Medicine
DX: R07.9 Chest pain, unspecified (principal); I25.10 Atherosclerotic heart disease of native coronary artery without angina pectoris; E78.5 Hyperlipidemia, unspecified; I10 Essential (primary) hypertension; I25.2 Old myocardial infarction; Z95.5 Presence of coronary angioplasty implant and graft; Z79.82 Long term (current) use of aspirin
CPT/HCPCS: 36415; 71045; 80053; 80061; 81003; 82607; 82746; 83036; 83540; 83550; 83735; 83880; 84443; 84484; 85025; 93005; 93308; 93458; 96374; 96375; 96376; 99152; 99153; 99285; C1769; C1887; C1894; G0378; J1644; J2250; J2270; J2405; J3010; J3490; J7030; Q9967

== ENCOUNTER → 2023-08-25 13:57 | Outpatient (BNVA) | payer MEDICARE, SELFPAY | PROVIDERS: PCP Family Medicine; Visit Provider Nurse Practitioner Family | DX: I25.10 Atherosclerotic heart disease of native coronary artery without angina pectoris (principal); I10 Essential (primary) hypertension | CPT/HCPCS: 99214 ==

== ENCOUNTER → 2023-10-20 14:39 | Outpatient (BNVA) | payer MEDICARE, SELFPAY | PROVIDERS: PCP Family Medicine; Visit Provider Family Medicine | DX: N39.0 Urinary tract infection, site not specified (principal); R30.0 Dysuria | CPT/HCPCS: 81000; 87086 ==

== ENCOUNTER → 2023-11-09 14:41 | Outpatient (BNVA) | payer MEDICARE, SELFPAY | PROVIDERS: PCP Family Medicine; Visit Provider Internal Medicine | DX: I25.10 Atherosclerotic heart disease of native coronary artery without angina pectoris (principal); I10 Essential (primary) hypertension | CPT/HCPCS: 99214 ==

== ENCOUNTER → 2023-11-10 10:18 | Outpatient (BNVA) | payer MEDICARE, SELFPAY | PROVIDERS: PCP Family Medicine; Visit Provider Family Medicine | DX: E78.5 Hyperlipidemia, unspecified (principal) | CPT/HCPCS: 80061 ==

== ENCOUNTER → 2023-12-22 13:39 | Outpatient (BNVA) | payer MEDICARE, SELFPAY | PROVIDERS: PCP Family Medicine; Visit Provider Family Medicine | DX: Z00.00 Encounter for general adult medical examination without abnormal findings (principal); I10 Essential (primary) hypertension; I25.10 Atherosclerotic heart disease of native coronary artery without angina pectoris; E78.5 Hyperlipidemia, unspecified | CPT/HCPCS: 80053; 80061; 85025 ==

== ENCOUNTER 2024-02-22 15:07 | Emergency (ER) | payer MEDICARE, SELFPAY ==
[2024-02-22] VITALS (8 sets, daily range): BP systolic 110–139; BP diastolic 55–82; PULSE 54–74; RESP 16–19; TEMP 36.4; O2SAT 96–99; BMI 23.0
--- NOTE | 2024-02-22 15:09 | ECG_ITS ---
[employer] 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 Measurements Intervals [place] Rate: 64 P: 204 PA: 134 QRS: 215 QRSD: 88 T: 255 QT: 415 QTc: 430 Interpretive Statements ECTOPIC ATRIAL RHYTHM PATTERN CONSISTENT WITH PULMONARY DISEASE POSSIBLE RIGHT VENTRICULAR HYPERTROPHY [SOME/ALL OF: PROMINENT R IN V1, LATE TRANSITION, RAD, LEW, SSS] ST DEVIATION AND MODERATE T-WAVE ABNORMALITY, CONSIDER ANTEROLATERAL ISCHEMIA [-0.1+ mV T-WAVE IN V3-V6] Compared to ECG 08/09/2023 10:36:46 Ectopic atrial rhythm now present Sinus rhythm no longer present Myocardial infarct finding no longer present T-wave abnormality still present Possible ischemia still present Electronically Signed On 02-22-2024 16:33:45 BIOLOGICAL SCIENCE TECHNICIAN by Freddie Fuentes M.D. [email or web address]
--- NOTE | 2024-02-22 15:10 | XR_ITS ---
WS: [id number] Portable AP upright chest, 02/22/2024 Clinical Data: cp Comparison: Portable chest, 08/08/2023 Findings: No nodules, masses or effusions are seen. The heart is normal. The pulmonary vascularity is not increased. No pneumonia or pneumothorax is seen. The aortic arch shows mild tortuosity. There is a dextroscoliosis of the thoracic spine. Monitor leads are on the chest wall. XR/XR chest 1V portable [id number] Impression: Atherosclerosis.
--- NOTE | 2024-02-22 15:20 | ED_ITS ---
HPI - Chest Pain 2 General: Chief Complaint: Chest Pain Stated Complaint: chest pain Time Seen by Provider: 02/22/24 15:10 Source: patient and EMS Mode of arrival: EMS Limitations: no limitations History of Present Illness: 78-year-old female states that she has b een having chest pain over the last 2 days. States been a pressure type pain in the center of her chest she states she had pain earlier today was improved with nitro she received aspirin and route as well she does have a history of stents in the past denies any fever denies any nausea. Associated symptoms: Deny abdominal pain, fever(s), nausea or vomiting Related Data Home Medications Medication Instructions Recorded Confirmed acetaminophen 500 mg tablet 500 mg PO Q6H PRN Pain 07/25/21 02/22/24 ibuprofen 200 mg tablet 600 mg PO Q6H PRN Pain 07/24/23 02/22/24 cetirizine 10 mg tablet (Zyrtec) 10 mg PO DAILY PRN allergies 08/10/23 02/22/24 [id number]-[id number]-smtr-FA-Ca carb-vit K 1 tab PO DAILY 08/10/23 02/22/24 18 mg iron-400 mcg-500 mg tablet aspirin 81 mg tablet,delayed 81 mg PO QAM 02/22/24 02/22/24 release bisoprolol fumarate 5 mg tablet 5 mg PO QAM 02/22/24 02/22/24 clopidogrel 75 mg tablet 75 mg PO QAM 02/22/24 02/22/24 Previous Rx's Medication Instructions Recorded Custom Molded Orthotics #1 ea 08/09/20 ondansetron 4 mg disintegrating 4 mg PO Q6H PRN nausea and 03/13/23 tablet vomiting #14 tabs albuterol sulfate 90 mcg/actuation 2 puff inhalation Q4H PRN 05/01/23 aerosol inhaler Shortness Of Breath #8.5 grams nitroglycerin 0.4 mg sublingual 0.4 mg sublingual Q5M PRN Chest 08/03/23 tablet (Nitrostat) Pain #30 tabs diazepam 5 mg tablet 5 mg PO .COMPLEX PRN anxiety #40 10/27/23 tabs fluoxetine 20 mg capsule (Prozac) 20 mg PO DAILY@18 #30 caps 10/27/23 Allergies Allergy/AdvReac Type Severity Reaction Status Date / Time epinephrine Allergy increased Verified 11/09/23 14:57 heart rate erythromycin base Allergy upset Verified 11/09/23 14:57 stomach lactase [From Dairy Aid] Allergy lactosintol Verified 11/09/23 14:57 erate [id number]-RNH-EwT Reductase Allergy weakness Verified 12/22/23 13:05 Inhibitor sulfamethizole Allergy not Verified 11/09/23 14:57 effective Sulfonylureas Allergy not Verified 11/09/23 14:57 effective trimethoprim Allergy uneffective Verified 11/09/23 14:57 Review of Systems 2 Const: Denies: fever(s), chills, body aches or change in appetite ENMT: Denies: throat pain or dental pain Card: Reports: chest pain GI: Denies: abdominal pain, nausea, vomiting or diarrhea Musc: Denies: neck pain or back pain Skin/Breast: Denies: rash Neuro: Denies: headache(s) PFSH ED 2 PFSH: Medical History AAA (abdominal aortic aneurysm) Panic disorder [episodic paroxysmal anxiety] Psychiatric care Major depressive disorder, recurrent, mild Uterine fibroid Recurrent urinary tract infection Hyperlipemia Diverticulosis Gastroesophageal reflux disease Depression Hypertension Surgical History History of colonoscopy 2004 History of esophagogastroduodenoscopy (EGD) 2004 History of dilation and curettage History of mandibular surgery TMJ surgery S/P tonsillectomy and adenoidectomy Family History Grandfather Colon cancer maternal Mother , Age 62 from brain cancer. Hypercholesteremia Hypertension Father , Age 39 due to blood clot after heart valve replacement No problems noted. Social History Smoking and tobacco/nicotine status: unknown if used tobacco/nicotine Alcohol intake: current Alcohol intake frequency: holidays/special occasions only Substance/Drug Use: never Physical Exam 2 Const: COMMON NORMALS: no acute distress, patient oriented x3 and healthy appearing HENMT: COMMON NORMALS: normocephalic and atraumatic HEAD & SCALP: n ormocephalic and atraumatic Neck/C-Spine: COMMON NORMALS: full ROM and supple Chest: COMMONS NORMALS: normal inspection of the chest Resp: COMMON NORMALS: normal respiratory effort and clear to auscultation bilaterally AUSCULTATION: clear to auscultation bilaterally Cardio: COMMON NORMALS: regular rate, regular rhythm and No murmurs present (Cardio) RATE: regular rate RHYTHM: regular rhythm GI: COMMON NORMALS: Normal to inspection, nondistended, normoactive bowel sounds present, Soft to palpation, non-tender and no masses PALPATION: Yes Soft to palpation Extremity: COMMON NORMALS: normal to inspection and full ROM Neuro: COMMON NORMALS: patient oriented x3, moves all extremities and no focal motor deficits Psych: COMMON NORMALS: mental status grossly normal, Normal thought process present and cooperative THOUGHT PROCESS: Normal thought process present Skin: COMMON NORMALS: no rashes or lesions noted and no wounds GENERAL SKIN EXAM: no rashes or lesions noted Course 2 Vital Signs: Vital signs: Vital Signs Temperature 97.5 F L 02/22/24 15:08 Pulse Rate 66 02/22/24 18:12 Respiratory Rate 16 02/22/24 17:47 Blood Pressure 139/82 02/22/24 18:12 Pulse Oximetry 96 02/22/24 18:12 Oxygen Delivery Me thod Room Air 02/22/24 17:27 MDM - Chest Pain Medical Decision Making Patient presents for chest pain initial repeat troponins are negative she has no signs of ACS or pulmonary embolism she stable for discharge follow-up with PCP return if worsening. Medical Records I reviewed the patient's medical records. Lab Data I reviewed the patient's lab results. 02/22/24 15:14 02/22/24 15:14 Radiology Impressions Chest X-Ray 02/22/24 15:10 Impression: Atherosclerosis. Laboratory Results WBC 7.02 10^3/uL (3.29-11.43) 02/22/24 15:14 RBC 4.75 10^6/uL (3.85-5.65) 02/22/24 15:14 Hgb 14.00 g/dL (11.27-16.99) 02/22/24 15:14 Hct 42.1 % (36-47) 02/22/24 15:14 MCV 88.6 fl (85-98) 02/22/24 15:14 MCH 29.5 pg (27-33) 02/22/24 15:14 MCHC 33.3 g/dL (30-55) 02/22/24 15:14 RDW 12.2 % (12.1-15.1) 02/22/24 15:14 Plt Count 198 10^3/cmm (157-399) 02/22/24 15:14 MPV 10.8 fL (7.4-10.4) H 02/22/24 15:14 Neut % (Auto) 69.1 % 02/22/24 15:14 Lymph % (Auto) 21.5 % 02/22/24 15:14 [place] % (Auto) 6.8 % 02/22/24 15:14 Eos % (Auto) 2.0 % 02/22/24 15:14 Baso % (Auto) 0.3 % 02/22/24 15:14 Neut # (Auto) 4.85 10^3/uL (1.8-7.7) 02/22/24 15:14 Lymph # (Auto) 1.5 10^3/uL (0.8-4.8) 02/22/24 15:14 [place] # (Auto) 0.5 10^3/uL (0.2-0.9) 02/22/24 15:14 Eos # (Auto) 0.1 10^3/uL (0.0-0.8) 02/22/24 15:14 Baso # (Auto) 0.0 10^3/uL (0.0-0.1) 02/22/24 15:14 Nucleated RBC % (auto) 0 % 02/22/24 15:14 Nucleated RBCs # 0.0 /100WBC 02/22/24 15:14 PT 12.20 SECONDS (12.1-14.9) 02/22/24 15:14 INR 0.88 (0.8-1.2) 02/22/24 15:14 Sodium 139 mmol/L (136-145) 02/22/24 15:14 Potassium 3.9 mmol/L (3.5-5.1) 02/22/24 15:14 Chloride 103 mmol/L (98-107) 02/22/24 15:14 Carbon Dioxide 24 mmol/L (22-29) 02/22/24 15:14 Anion Gap 15.9 (5-19) 02/22/24 15:14 BUN 13 mg/dL (8-23) 02/22/24 15:14 Creatinine 0.8 mg/dL (0.5-0.9) 02/22/24 15:14 GFR Calculation Not Reportable 02/22/24 15:14 Glucose 106 mg/dL (65-115) 02/22/24 15:14 Calculated Osmolality 289 mOsm/kg (285-295) 02/22/24 15:14 Calcium 9.7 mg/dL (8.5-10.5) 02/22/24 15:14 Total Bilirubin 0.5 mg/dL (0.15-1.2) 02/22/24 15:14 AST 35 U/L (0-32) H 02/22/24 15:14 ALT 19 U/L (0-33) 02/22/24 15:14 Alkaline Phosphatase 77 U/L (35-105) 02/22/24 15:14 Troponin T Baseline 10 ng/L (0-10) 02/22/24 15:14 Troponin T 120 Minute 11.40 ng/L (0-10) H 02/22/24 17:11 Delta Troponin T 1.40 ABS# (0-10) 02/22/24 17:11 Total Protein 7.1 g/dL (6.6-8.7) 02/22/24 15:14 Albumin 4.3 g/dL (3.5-5.2) 02/22/24 15:14 Globulin 2.8 g/dL (1.3-4.6) 02/22/24 15:14 Lipase 27 U/L (13-60) 02/22/24 15:14 All radiology interpretation(s) finalized by discharge EKG Data EKG 1: I personally reviewed and interpreted this EKG as follows: EKG interpretation date: 02/22/24 EKG interpretation time: 15:09 Interpretation: nsr hr [address] elevation qrs 88 qtc 425 EKG 2: I personally reviewed and interpreted this EKG as follows: EKG interpretation date: 02/22/24 EKG interpretation time: 17:32 Interpretation: nsr hr [address] elevation qrs 84 qtc 420 Discharge Plan Discharge Patient Disposition: Home Clinical Impression: Chest pain Condition: Stable Prescriptions: No Action (DME) Custom Molded Orthotics See Rx Instructions .Route .MEDSUPPLY Qty: 1 0RF Rx Instructions: As directed Prozac 20 mg capsule 20 mg PO DAILY@18 Qty: 30 5RF diazepam 5 mg tablet 5 mg PO .COMPLEX PRN (Reason: anxiety) Qty: 40 2RF Rx Instructions: Take 2.5 - 5 MG at bedtime and as needed for panic attacks. nitroglycerin [Nitrostat] 0.4 mg tablet, sublingual 0.4 mg SUBLINGUAL Q5M PRN (Reason: Chest Pain) Qty: 30 5RF Rx Instructions: do not exceed 3 doses per episode albuterol sulfate 90 mcg/actuation HFA aerosol inhaler 2 puff INHALATION Q4H PRN (Reason: Shortness Of Breath) Qty: 8.5 1RF acetaminophen 500 mg Tablet 500 mg PO Q6H PRN (Reason: Pain) ondansetron 4 mg tablet,disintegrating 4 mg PO Q6H PRN (Reason: nausea and vomiting) Qty: 14 0RF cetirizine [Zyrtec] 10 mg Tablet 10 mg PO DAILY PRN (Reason: allergies) Women's Multivitamin 18 mg iron-400 mcg-500 mg Tablet 1 tab PO DAILY clopidogrel 75 mg tablet 75 mg PO QAM aspirin 81 mg tablet,delayed release (DR/EC) 81 mg PO QAM bisoprolol fumarate 5 mg tablet 5 mg PO QAM ibuprofen 200 mg Tablet 600 mg PO Q6H PRN (Reason: Pain) Discharge Orders: Discharge ED (Routine); Ordered 02/22/24 Ordered By: Deshaun Newberry Referrals: Freddie Fuentes M.D [Physician] - 1-3 days Nathan Patten MD [Primary Care Provider] - 4-7 days Discharge Diet: Advance as tolerated Discharge Activity: Resume usual activity Patient Instructions: Chest Pain (ED) Coding Level of Care Code ED Pre Billing Specialist for Alberto Roa
[2024-02-22 15:22] LABS: Basophils % 0.3 %; Eosinophils # 0.1 10^3/uL (0.0-0.8); Hematocrit 42.1 % (36-47); Lymphocytes # 1.5 10^3/uL (0.8-4.8); Lymphocytes % 21.5 %; Mean Corpuscular HGB Conc 33.3 g/dL (30-55); Mean Corpuscular Hemoglobin 29.5 pg (27-33); Mean Corpuscular Volume 88.6 fl (85-98); Mean Platelet Volume 10.8 fL (7.4-10.4); Monocytes # 0.5 10^3/uL (0.2-0.9); Monocytes % 6.8 %; Neutrophils # 4.85 10^3/uL (1.8-7.7); Neutrophils % 69.1 %; Nucleated Red Blood Cells % 0 %; Platelet Count 198 10^3/cmm (157-399); Red Blood Count 4.75 10^6/uL (3.85-5.65); Red Cell Distribution Width 12.2 % (12.1-15.1); White Blood Count 7.02 10^3/uL (3.29-11.43)
[2024-02-22 15:32] LABS: INR 0.88 (0.8-1.2)
[2024-02-22 15:38] LABS: Troponin(5th) Baseline 10 ng/L (0-10)
[2024-02-22 15:42] LABS: Alanine Aminotransferase 19 U/L (0-33); Albumin Level 4.3 g/dL (3.5-5.2); Alkaline Phosphatase 77 U/L (35-105); Aspartate Amino Transferase 35 U/L (0-32); Blood Urea Nitrogen 13 mg/dL (8-23); Calcium 9.7 mg/dL (8.5-10.5); Carbon Dioxide 24 mmol/L (22-29); Chloride 103 mmol/L (98-107); Creatinine Clr Calc Pharmacy 51.9698; Globulin 2.8 g/dL (1.3-4.6); Glucose 106 mg/dL (65-115); Lipase 27 U/L (13-60); Osmolality Calculated 289 mOsm/kg (285-295); Sodium 139 mmol/L (136-145); Total Bilirubin 0.5 mg/dL (0.15-1.2); Total Protein 7.1 g/dL (6.6-8.7)
[2024-02-22 15:45] LABS: Anion Gap 15.9 (5-19); Potassium 3.9 mmol/L (3.5-5.1)
--- NOTE | 2024-02-22 17:10 | ECG_ITS ---
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 Measurements Intervals [place] Rate: 60 P: 12 AL: 166 QRS: -26 QRSD: 84 T: -78 QT: 419 QTc: 420 Interpretive Statements SINUS RHYTHM LOW QRS VOLTAGE IN PRECORDIAL LEADS [QRS DEFLECTION < 1.0 mV IN CHEST LEADS] POSSIBLE ANTERIOR MYOCARDIAL INFARCTION , OF INDETERMINATE AGE [30 ms Q WAVE IN V3/V4, OR R < 0.2 mV IN V4] MODERATE T-WAVE ABNORMALITY, CONSIDER INFERIOR ISCHEMIA [-0.1+ mV T-WAVE IN II/aVF] Compared to ECG 02/22/2024 15:09:43 Low QRS voltage now present Myocardial infarct finding now present Ectopic atrial rhythm no longer present T-wave abnormality still present Possible ischemia still present Electronically Signed On 02-23-2024 17:51:16 COMPUTER CONSULTANT by Nam Dominguez M.D. [email or web address]
--- NOTE | 2024-02-25 10:52 | DCPLANNER ---
messaged heart care for er f/u
== END 2024-02-22 18:12 | disposition home or self-care (01) ==
PROVIDERS: Emergency Provider Emergency Medicine; PCP Family Medicine
DX: R07.9 Chest pain, unspecified (principal); Z79.82 Long term (current) use of aspirin; Z79.02 Long term (current) use of antithrombotics/antiplatelets; E78.5 Hyperlipidemia, unspecified; I10 Essential (primary) hypertension
CPT/HCPCS: 36415; 71045; 80053; 83690; 84484; 85025; 85610; 93005; 99285

== ENCOUNTER → 2024-03-01 11:00 | Outpatient (BNVA) | payer MEDICARE, SELFPAY | PROVIDERS: PCP Family Medicine; Visit Provider Internal Medicine | DX: I25.10 Atherosclerotic heart disease of native coronary artery without angina pectoris (principal); I10 Essential (primary) hypertension | CPT/HCPCS: 99214 ==

== ENCOUNTER → 2024-08-29 14:36 | Outpatient (BNVA) | payer MEDICARE, SELFPAY | PROVIDERS: PCP Family Medicine; Visit Provider Internal Medicine | DX: I25.10 Atherosclerotic heart disease of native coronary artery without angina pectoris (principal); I10 Essential (primary) hypertension | CPT/HCPCS: 99214 ==

== ENCOUNTER → 2024-09-29 09:10 | Outpatient (BNVA) | payer MEDICARE, SELFPAY | PROVIDERS: PCP Family Medicine; Visit Provider Family Medicine | DX: E78.5 Hyperlipidemia, unspecified (principal); F32.9 Major depressive disorder, single episode, unspecified; I10 Essential (primary) hypertension; I25.10 Atherosclerotic heart disease of native coronary artery without angina pectoris | CPT/HCPCS: 80053; 80061; 85025 ==

== ENCOUNTER 2024-10-17 15:41 | Outpatient (CLI) | payer MEDICARE, SELFPAY ==
--- NOTE | 2024-10-17 | XR_ITS ---
Exam: XR lumbar spine 2-3V* [id number] Date/Time of Exam: 10/17/2024 4:05 PM Reason For Exam: back pain DLP: Comparison 06/18/2018. Probable sacralization of L5. Grade 1 degenerative anterolisthesis of L4 on L5. Mild spondylosis. Facet arthropathy at all levels. Degenerative disc narrowing at all levels. Moderate levoscoliosis. No fracture. IMPRESSION: 1. No fracture or malalignment. 2. Mild degenerative anterolisthesis of L4 on L5. Probable sacralization of L5. 3. Moderate degenerative changes and levoscoliosis. MTDD
--- NOTE | 2024-10-17 15:51 | XR_ITS ---
WS: [id number] Exam: XR hip RT 2-3V wo/w pel* [id number] Date/Time of Exam: 10/17/2024 4:05 PM Reason For Exam: hip pain No acute fracture. Mild to moderate degenerative change of the joint compartment. Normal soft tissues. XR/XR hip RT 2-3V wo/w pel* [id number] IMPRESSION: 1. Mild to moderate DJD.
== END 2024-10-17 15:42 | disposition home or self-care (01) ==
LOC: RAD 15:43
PROVIDERS: PCP Family Medicine; Visit Provider Family Medicine
DX: M16.11 Unilateral primary osteoarthritis, right hip (principal); M47.816 Spondylosis without myelopathy or radiculopathy, lumbar region; M41.9 Scoliosis, unspecified
CPT/HCPCS: 72100; 73502; J1010